=== PATIENT | female | born 1960 | race Caucasian/White ===

== ENCOUNTER 2017-10-21 22:11 | Inpatient (IN) | payer BC, SELFPAY | END 2017-10-25 18:33 | disposition home or self-care (01) | DRG 194 | PROVIDERS: Admitting Provider Emergency Medicine; Emergency Provider Emergency Medicine; Family Provider Emergency Medicine; Visit Provider Emergency Medicine | DX: J18.9 Pneumonia, unspecified organism (principal); C79.51 Secondary malignant neoplasm of bone; C79.89 Secondary malignant neoplasm of other specified sites; C50.919 Malignant neoplasm of unspecified site of unspecified female breast | CPT/HCPCS: 36415; 36569; 71010; 71020; 78306; 80048; 80053; 80202; 81001; 82550; 82553; 82962; 83605; 83880; 84484; 85025; 87040; 87070; 87077; 87186; 87205; 87275; 87276; 87430; 87486; 87581; 87633; 87798; 94640; 94760; 96365; 96374; 99284; A9502; C1751; J0456; J3370 ==

== ENCOUNTER 2017-10-26 11:23 | Outpatient (CLI) | payer BC, SELFPAY | END 2017-10-26 11:50 | disposition home or self-care (01) | PROVIDERS: Visit Provider Emergency Medicine | DX: J18.1 Lobar pneumonia, unspecified organism (principal) | CPT/HCPCS: 96365 ==

== ENCOUNTER → 2017-10-26 | Outpatient (CLI) | payer BC, SELFPAY | PROVIDERS: Visit Provider Emergency Medicine | DX: A40.9 Streptococcal sepsis, unspecified (principal); Z45.2 Encounter for adjustment and management of vascular access device; Z48.00 Encounter for change or removal of nonsurgical wound dressing ==

== ENCOUNTER 2017-10-27 10:54 | Outpatient (CLI) | payer BC, SELFPAY | END 2017-10-27 12:03 | disposition home or self-care (01) | PROVIDERS: Visit Provider Emergency Medicine | DX: J18.1 Lobar pneumonia, unspecified organism (principal) | CPT/HCPCS: 96365 ==

== ENCOUNTER → 2017-10-28 | Outpatient (CLI) | payer BC, SELFPAY | PROVIDERS: Visit Provider Emergency Medicine | DX: J18.1 Lobar pneumonia, unspecified organism (principal) | CPT/HCPCS: 96365 ==

== ENCOUNTER 2017-10-29 10:45 | Outpatient (CLI) | payer BC, SELFPAY | END 2017-10-29 12:24 | disposition home or self-care (01) | PROVIDERS: Visit Provider Emergency Medicine | DX: A40.9 Streptococcal sepsis, unspecified (principal); Z45.2 Encounter for adjustment and management of vascular access device; Z48.00 Encounter for change or removal of nonsurgical wound dressing | CPT/HCPCS: 80053; 85025; 96365 ==

== ENCOUNTER 2017-10-30 10:40 | Outpatient (CLI) | payer BC, SELFPAY | END 2017-10-30 11:50 | disposition home or self-care (01) | PROVIDERS: Visit Provider Emergency Medicine | DX: J18.1 Lobar pneumonia, unspecified organism (principal) | CPT/HCPCS: 96365 ==

== ENCOUNTER 2017-10-31 11:04 | Outpatient (CLI) | payer BC, SELFPAY | END 2017-10-31 12:10 | disposition home or self-care (01) | PROVIDERS: Visit Provider Emergency Medicine | DX: A40.9 Streptococcal sepsis, unspecified (principal) | CPT/HCPCS: 96365 ==

== ENCOUNTER 2017-11-01 11:00 | Outpatient (CLI) | payer BC, SELFPAY | END 2017-11-01 12:10 | disposition home or self-care (01) | PROVIDERS: Visit Provider Emergency Medicine | DX: A40.9 Streptococcal sepsis, unspecified (principal) | CPT/HCPCS: 96365 ==

== ENCOUNTER 2017-11-05 09:52 | Outpatient (CLI) | payer BC, SELFPAY ==
--- NOTE | 2017-11-05 10:01 | XR_ITS ---
XR chest 2V CLINICAL INDICATION: ITS.REASON: PNEUMONIA OF BOTH LUNGS ORDERING PHYSICIAN: ELVIA Her PATIENT AGE: 56 years COMPARISON: 10/24/2017 FINDINGS: Unremarkable cardiovascular structures. Bilateral lower lobe consolidation/pneumonia with bilateral effusions once again noted not significant changed. Right upper extremity PICC line remains in good position. In the left upper lobe overlying the second rib anteriorly there is a lucency of the age aspect of the second rib measuring 4 mm. Previous bone scan suggested metastatic disease. This lucency may be related to developing lytic lesion. There remains scattered blastic appearance of the spine suggesting metastatic disease. IMPRESSION: Overall no change bilateral lower lobe pneumonia with effusions and skeletal metastasis
== END 2017-11-05 15:15 | disposition home or self-care (01) ==
PROVIDERS: PCP Emergency Medicine; Visit Provider Physician Assistant
DX: J18.9 Pneumonia, unspecified organism (principal)
CPT/HCPCS: 71046; G0463

== ENCOUNTER 2017-11-07 08:01 | Outpatient (RCR) | payer BC, SELFPAY ==
--- NOTE | 2017-11-07 09:24 | HMH.PTOPEV ---
Outpatient Rehab Evaluation Rehab OP Evaluation Start: 11/07/17 08:25 Freq: Status: Active Protocol: Document 11/07/17 08:25 AUBRIE (Rec: 11/07/17 08:49 AUBRIE [id number]) Electronically Signed By Sathya Reza, PT 11/07/17 08:25 Outpatient Therapy Subjective History Subjective History PT PRESENTS WITH INSIDIOUS ONSET L HIP PAIN BEGINNING ~2- 3 MONTHS AGO. PT REPORTS L HIP PAIN RADIATES FROM FROM L GLUT. MM AREA INTO L ANTERIOR THIGH AREA. PT REPORTS EXACERBATION OF S/S W/ WORK RELATED PROLONGED STANDING ( [facility]). PMH:DM, BREAST CX Chief Complaint Pain Symptom Type Ache Throb Sharp Dull Symptoms Relieved By Rest/Positioning Symptoms Aggravated By Standing Walking Prior Functional Limitations Lifting Standing Walking Current Functional Limitations Lifting Standing Walking Symptom Description Intermittent Activity Dependent Level of pain today (0-10) 3 Pain scale - at its best (0-10) 0 Pain scale - at its worst (0-10) 8 Lumbopelvic Eval Posture Lumbar Spine Posture Standing Position Decreased Lordosis Assistive device Assistive Devices None / NA Palapation tenderness bilateral thoracic spinal tenderness No lumbar spinal tenderness Yes: 2/4 paraspinal tenderness Yes: 2/4 buttock tenderness Yes: 2/4 ON R Range of Motion Lumbar Spine Active Flexion Range of 75 Motion (degrees) Lumbar Spine Active Extension Range of 35 Motion (degrees) Lumbar Spine Lateral Flexion Active 30 Range of Motion (degrees) Lumbar Spine ROM Limitations Pain Manual Muscle Test Knee Extension Strength Grade 4 Good Knee Flexion Strength Grade 4 Good Hip Flexion Strength Grade 4- Good- Ankle Dorsiflexion Strength Grade 4 Good Gastronemius/Soleus Strength Grade 4- Good- DTR Rt Patellar 1+ Lt Patellar 1+ Rt Gastroc/Soleus 0 Lt Gastroc/Soleus 0 Special Tests Hip Piriformis Test Negative Left Positive Right Sciatic Nerve Tension Test Negative Left
== END 2017-11-07 08:02 ==
LOC: PT 08:01
PROVIDERS: Family Provider Emergency Medicine; PCP Emergency Medicine; Visit Provider Emergency Medicine
DX: M25.552 Pain in left hip (principal)
CPT/HCPCS: 97110; 97161

== ENCOUNTER → 2017-11-29 10:20 | Outpatient (CLI) | payer BC, SELFPAY ==
[2017-11-29 12:06] LABS: Alanine Aminotransferase 24 U/L (12-78); Albumin Level 3.3 gm/dL (3.4-5.0); Albumin/Globulin Ratio 0.8 (1.1-1.8); Alkaline Phosphatase 97 U/L (46-116); Aspartate Amino Transferase 27 U/L (15-37); Bilirubin,Total 0.3 mg/dL (0.2-1.0); Blood Urea Nitrogen 9 mg/dL (7-18); Calcium 8.7 mg/dL (8.5-10.1); Carbon Dioxide 25 mmol/L (21.0-32.0); Chloride 104 mmol/L (98-107); Creatinine,Serum 0.77 mg/dL (0.55-1.02); Estimated Glomerular Filt Rate 77 ml/min (>60); GFR (African American) 93 ML/MIN (>60); Globulin 4.4 gm/dl (1.3-3.2); Glucose 183 mg/dL (74-106); Sodium 141 mmol/L (136-145); Total Protein,Serum 7.7 gm/dL (6.4-8.2)
[2017-11-29 12:10] LABS: Basophils # 0.1 K/mm3 (0-0.2); Basophils % 1.5 % (0.1-2.0); Eosinophils # 0.1 K/mm3 (0.0-0.4); Eosinophils % 3.2 % (0.1-12.0); Hematocrit 30.2 % (37.0-47.0); Hemoglobin 9.6 g/dL (12.2-16.2); Lymphocytes # 1.7 K/mm3 (0.7-4.5); Lymphocytes % 47.5 K/mm3 (10-50); Mean Corpuscular HGB Conc 31.7 g/dL (31.8-35.4); Mean Corpuscular Hemoglobin 29.5 pg (27.0-31.2); Mean Corpuscular Volume 93.2 fl (81-99); Mean Platelet Volume 7.4 fl (7.4-10.4); Monocytes # 0.3 K/mm3 (0.1-1.0); Monocytes % 9.5 % (1.7-9.3); Neutrophils # 1.4 K/mm3 (1.8-7.8); Neutrophils % 38.3 % (37.0-80.0); Platelet Count 260 K/mm3 (142-424); Red Blood Count 3.25 M/mm3 (4.20-5.40); Red Cell Distribution Width 16.3 % (11.5-17.5); White Blood Count 3.6 K/mm3 (4.8-10.8)
== END ==
PROVIDERS: PCP Emergency Medicine; Visit Provider Nurse Practitioner
DX: C50.412 Malignant neoplasm of upper-outer quadrant of left female breast (principal)
CPT/HCPCS: 36415; 80053; 85025

== ENCOUNTER → 2017-12-18 14:31 | Outpatient (CLI) | payer BC, SELFPAY ==
[2017-12-18 14:52] LABS: Basophils # 0.1 K/mm3 (0-0.2); Basophils % 1.5 % (0.1-2.0); Eosinophils # 0.2 K/mm3 (0.0-0.4); Eosinophils % 5.3 % (0.1-12.0); Hematocrit 28.1 % (37.0-47.0); Hemoglobin 9.3 g/dL (12.2-16.2); Lymphocytes # 1.5 K/mm3 (0.7-4.5); Lymphocytes % 50.3 K/mm3 (10-50); Mean Corpuscular Volume 90.8 fl (81-99); Mean Platelet Volume 7.6 fl (7.4-10.4); Monocytes # 0.2 K/mm3 (0.1-1.0); Monocytes % 5.4 % (1.7-9.3); Neutrophils # 1.1 K/mm3 (1.8-7.8); Neutrophils % 37.5 % (37.0-80.0); Platelet Count 212 K/mm3 (142-424); Red Cell Distribution Width 17.7 % (11.5-17.5)
[2017-12-18 15:02] LABS: Hemoglobin A1C 7.7 % (0.0-7.0)
[2017-12-18 15:11] LABS: MANUAL DIFFERENTIAL MANUAL DIFFERENTIAL (MANUAL DIFF)
[2017-12-18 17:03] LABS: Eosinophils % 2 % (0-3); Lymphocytes % 63 % (10-50); Monocytes % 3 % (2-9); Neutrophils % 31 % (42-76); Platelet Estimate Normal; RBC Morphology Normal; Total Cells Counted 100
[2017-12-18 19:06] LABS: Alanine Aminotransferase 27 U/L (12-78); Albumin Level 3.5 gm/dL (3.4-5.0); Albumin/Globulin Ratio 0.8 (1.1-1.8); Alkaline Phosphatase 81 U/L (46-116); Anion Gap 11.8 mEq/L (5-15); Aspartate Amino Transferase 26 U/L (15-37); Bilirubin,Total 0.4 mg/dL (0.2-1.0); Blood Urea Nitrogen 17 mg/dL (7-18); Calcium 9.4 mg/dL (8.5-10.1); Carbon Dioxide 28 mmol/L (21.0-32.0); Chloride 104 mmol/L (98-107); Chol/HDL Ratio 3.1 (1-3.5); Cholesterol 110 mg/dL (140-200); Creatinine,Serum 1.05 mg/dL (0.55-1.02); Estimated Glomerular Filt Rate 54 ml/min (>60); GFR (African American) 65 ML/MIN (>60); Globulin 4.2 gm/dl (1.3-3.2); Glucose 141 mg/dL (74-106); HDL Cholesterol 35 mg/dL (29-89); LDL Cholesterol 51 mg/dL (0-130); Potassium 3.8 mmoL/L (3.5-5.1); Sodium 140 mmol/L (136-145); Total Protein,Serum 7.7 gm/dL (6.4-8.2); Triglycerides 120 mg/dL (30-200); VLDL Cholesterol 24 mg/dL (0-40)
== END ==
PROVIDERS: PCP Emergency Medicine; Visit Provider Emergency Medicine
DX: E11.9 Type 2 diabetes mellitus without complications (principal); C50.412 Malignant neoplasm of upper-outer quadrant of left female breast
CPT/HCPCS: 36415; 80053; 80061; 83036; 85007; 85025

== ENCOUNTER → 2018-01-24 10:37 | Outpatient (CLI) | payer BC, SELFPAY ==
[2018-01-24 10:56] LABS: Basophils % 1.4 % (0.1-2.0); Eosinophils # 0.1 K/mm3 (0.0-0.4); Eosinophils % 3.7 % (0.1-12.0); Hematocrit 32.5 % (37.0-47.0); Hemoglobin 10.3 g/dL (12.2-16.2); Lymphocytes # 1.6 K/mm3 (0.7-4.5); Lymphocytes % 54.4 K/mm3 (10-50); Mean Corpuscular HGB Conc 31.6 g/dL (31.8-35.4); Mean Platelet Volume 7.7 fl (7.4-10.4); Monocytes # 0.3 K/mm3 (0.1-1.0); Monocytes % 9.8 % (1.7-9.3); Neutrophils # 0.9 K/mm3 (1.8-7.8); Neutrophils % 30.8 % (37.0-80.0); Platelet Count 218 K/mm3 (142-424); Red Blood Count 3.42 M/mm3 (4.20-5.40); Red Cell Distribution Width 17.8 % (11.5-17.5); White Blood Count 2.9 K/mm3 (4.8-10.8)
[2018-01-24 10:57] LABS: MANUAL DIFFERENTIAL MANUAL DIFFERENTIAL (MANUAL DIFF)
[2018-01-24 11:05] LABS: Alanine Aminotransferase 22 U/L (12-78); Albumin Level 3.4 gm/dL (3.4-5.0); Albumin/Globulin Ratio 0.7 (1.1-1.8); Alkaline Phosphatase 101 U/L (46-116); Anion Gap 12.8 mEq/L (5-15); Aspartate Amino Transferase 27 U/L (15-37); Bilirubin,Total 0.4 mg/dL (0.2-1.0); Blood Urea Nitrogen 11 mg/dL (7-18); Calcium 9.1 mg/dL (8.5-10.1); Carbon Dioxide 27 mmol/L (21.0-32.0); Chloride 102 mmol/L (98-107); Creatinine,Serum 0.84 mg/dL (0.55-1.02); Estimated Glomerular Filt Rate 70 ml/min (>60); GFR (African American) 84 ML/MIN (>60); Globulin 4.7 gm/dl (1.3-3.2); Glucose 232 mg/dL (74-106); Potassium 3.8 mmoL/L (3.5-5.1); Sodium 138 mmol/L (136-145); Total Protein,Serum 8.1 gm/dL (6.4-8.2)
[2018-01-24 11:45] LABS: Eosinophils % 4 % (0-3); Lymphocytes % 57 % (10-50); Monocytes % 7 % (2-9); Neutrophils % 32 % (42-76); Platelet Estimate Normal; Total Cells Counted 100
[2018-01-24 11:46] LABS: Hypochromasia 1+
== END ==
PROVIDERS: Visit Provider Internal Medicine Hematology & Oncology
DX: C50.412 Malignant neoplasm of upper-outer quadrant of left female breast (principal)
CPT/HCPCS: 36415; 80053; 85007; 85025

== ENCOUNTER → 2018-03-03 11:45 | Outpatient (CLI) | payer BC, SELFPAY ==
--- NOTE | 2018-03-03 11:46 | XR_ITS ---
XR chest 2V COMPARISON: PA and lateral chest 11/05/2017 HISTORY: Generalized malaise, history of recent pneumonia TECHNIQUE: PA and lateral chest FINDINGS: The lung perdomo are well expanded. There is persistent ill-defined opacity in right infrahilar region and right lower lobe most likely representing post inflammatory scarring but some degree of pneumonic infiltrate cannot be excluded. The partially loculated right pleural effusion seen on the previous chest film has almost completely resolved. There is blunting of left costo phrenic angle. The upper lung perdomo are clear. Cardiac size is normal and the vascularity is normal. There are subtle radiolucencies and multiple ribs bilaterally consistent with metastatic disease. IMPRESSION: Chronic basilar changes as noted similar to the previous chest with interval almost complete resolution of the loculated pleural effusion right base
[2018-03-03 12:21] LABS: Basophils % 1.6 % (0.1-2.0); Eosinophils # 0.1 K/mm3 (0.0-0.4); Eosinophils % 2.7 % (0.1-12.0); Hematocrit 31.5 % (37.0-47.0); Hemoglobin 10.1 g/dL (12.2-16.2); Lymphocytes # 0.9 K/mm3 (0.7-4.5); Lymphocytes % 34.4 K/mm3 (10-50); Mean Corpuscular Volume 93.7 fl (81-99); Mean Platelet Volume 7.4 fl (7.4-10.4); Monocytes # 0.3 K/mm3 (0.1-1.0); Monocytes % 11.5 % (1.7-9.3); Neutrophils # 1.2 K/mm3 (1.8-7.8); Neutrophils % 49.8 % (37.0-80.0); Platelet Count 302 K/mm3 (142-424); Red Blood Count 3.36 M/mm3 (4.20-5.40); Red Cell Distribution Width 16.4 % (11.5-17.5); White Blood Count 2.5 K/mm3 (4.8-10.8)
[2018-03-04 14:22] LABS: Alanine Aminotransferase 60 U/L (12-78); Albumin Level 3.6 gm/dL (3.4-5.0); Albumin/Globulin Ratio 0.8 (1.1-1.8); Alkaline Phosphatase 216 U/L (46-116); Aspartate Amino Transferase 139 U/L (15-37); Bilirubin,Total 0.6 mg/dL (0.2-1.0); Blood Urea Nitrogen 16 mg/dL (7-18); Calcium 9.5 mg/dL (8.5-10.1); Carbon Dioxide 27 mmol/L (21.0-32.0); Chloride 99 mmol/L (98-107); Creatinine,Serum 0.89 mg/dL (0.55-1.02); Estimated Glomerular Filt Rate 65 ml/min (>60); GFR (African American) 79 ML/MIN (>60); Globulin 4.4 gm/dl (1.3-3.2); Glucose 371 mg/dL (74-106); Sodium 133 mmol/L (136-145)
== END ==
PROVIDERS: Internal Medicine Hematology & Oncology; PCP Emergency Medicine; Visit Provider Physician Assistant
DX: C50.412 Malignant neoplasm of upper-outer quadrant of left female breast (principal); R10.9 Unspecified abdominal pain; R05 Cough
CPT/HCPCS: 36415; 71046; 80053; 85025; 87070; 87205

== ENCOUNTER → 2018-03-13 10:51 | Outpatient (CLI) | payer BC, SELFPAY | PROVIDERS: Visit Provider Emergency Medicine | DX: C50.412 Malignant neoplasm of upper-outer quadrant of left female breast (principal) | CPT/HCPCS: 87070; 87077; 87186; 87205 ==

== ENCOUNTER 2018-03-18 09:55 | Outpatient (CLI) | payer BC, SELFPAY ==
[2018-03-18 12:15] VITALS: BP 138/71; PULSE 68; RESP 20; TEMP 37.1; O2SAT 96
[2018-03-18 12:55] VITALS: BP 138/70; PULSE 68; RESP 20; TEMP 36.7; O2SAT 96
[2018-03-18 13:25] VITALS: BP 144/77; PULSE 88; RESP 20; TEMP 36.7; O2SAT 96; BMI 36.4
[2018-03-18 14:25] VITALS: BP 122/70; PULSE 68; RESP 20; TEMP 36.9; O2SAT 96
[2018-03-18 14:54] LABS: Gentamicin,Peak 16.3 ug/mL (4.0-8.0)
--- NOTE | 2018-03-18 17:43 | PC.NURSE ---
PT ARRIVED FOR PICC PLACEMENT; ATTEMPTED X3 WITH PUTTING PICC IN; Yuko MA WAS ALSO IN THE ROOM. NOT ABLE TO GET THE VEIN WITH ANY ATTEMPT; DUE TO PATIENT HAVING LYMPHEDEMA IN THE LEFT ARM WE WERE NOT ABLE TO USE THAT ARM; PATIENT WAS THEN STUCK X3 ATTEMPTS IN RIGHT ARM FOR SALINE LOCK; MD OFFICE WAS CALLED AND PATIENT IS SCHEDULED TO SPEAK WITH DR CALVERT TOMORROW FOR VENOUS ACCESS
== END 2018-03-18 14:35 | disposition home or self-care (01) ==
LOC: INF 12:10
PROVIDERS: Family Provider Emergency Medicine; PCP Emergency Medicine; Visit Provider Emergency Medicine
DX: C50.412 Malignant neoplasm of upper-outer quadrant of left female breast (principal)
CPT/HCPCS: 36415; 80170; 96365; 96366; 96367; C1751; J1956

== ENCOUNTER 2018-03-19 09:10 | Outpatient (CLI) | payer BC, SELFPAY ==
[2018-03-19] VITALS (7 sets, daily range): BP systolic 129–134; BP diastolic 80–88; PULSE 89–96; RESP 20; TEMP 36.5; O2SAT 97–98; BMI 36.4
[2018-03-19 10:10] LABS: Gentamicin,Trough 0.1 ug/mL (0.0-2.0)
--- NOTE | 2018-03-19 10:29 | PC.NURSE ---
pt awaiting lab results to start iv infusion. pt has appt with md today to discuss alternate options for venous access. ambulated with pt to office for appt at this time. pt to return for antibiotic infusion.
--- NOTE | 2018-03-19 11:02 | PC.NURSE ---
pt returned from md appt, medication started
== END 2018-03-19 13:40 | disposition home or self-care (01) ==
LOC: INF 09:20
PROVIDERS: Family Provider Emergency Medicine; PCP Emergency Medicine; Visit Provider Emergency Medicine
DX: C50.412 Malignant neoplasm of upper-outer quadrant of left female breast (principal); J18.1 Lobar pneumonia, unspecified organism
CPT/HCPCS: 80170; 93005; 96365; 96366; 96367; J1956

== ENCOUNTER 2018-03-20 08:45 | Outpatient (CLI) | payer BC, SELFPAY ==
[2018-03-20 09:35] VITALS: BP 148/79; PULSE 84; RESP 16; TEMP 36.6
[2018-03-20 10:05] VITALS: BP 144/86; PULSE 86; RESP 16
[2018-03-20 10:35] VITALS: BP 156/96; PULSE 87; RESP 16
[2018-03-20 11:05] VITALS: BP 149/83; PULSE 86; RESP 18
[2018-03-20 11:35] VITALS: BP 127/73; PULSE 86; RESP 18
[2018-03-20 11:50] VITALS: BP 154/83; PULSE 90; RESP 18; O2SAT 93
== END 2018-03-20 12:00 | disposition home or self-care (01) ==
LOC: INF 08:54
PROVIDERS: Family Provider Emergency Medicine; PCP Emergency Medicine; Visit Provider Emergency Medicine
DX: C50.412 Malignant neoplasm of upper-outer quadrant of left female breast (principal)
CPT/HCPCS: 96365; 96367; J1956

== ENCOUNTER 2018-03-21 08:08 | Outpatient (CLI) | payer BC, SELFPAY ==
[2018-03-21] VITALS (8 sets, daily range): BP systolic 117–133; BP diastolic 67–80; PULSE 88–96; RESP 18; TEMP 36.7; O2SAT 93–95
== END 2018-03-21 11:55 | disposition home or self-care (01) ==
LOC: INF 08:36
PROVIDERS: Family Provider Emergency Medicine; PCP Emergency Medicine; Visit Provider Emergency Medicine
DX: C50.412 Malignant neoplasm of upper-outer quadrant of left female breast (principal)
CPT/HCPCS: 96365; 96366; 96367; J1642; J1956

== ENCOUNTER → 2018-03-22 10:22 | Outpatient (CLI) | payer BC, SELFPAY ==
[2018-03-22 10:45] VITALS: BP 147/86; PULSE 118; RESP 18; TEMP 36.7; O2SAT 96
[2018-03-22 12:30] VITALS: BP 147/86; PULSE 104; RESP 18; TEMP 36.8; O2SAT 94
== END ==
PROVIDERS: Family Provider Emergency Medicine; PCP Emergency Medicine; Visit Provider Emergency Medicine
DX: C50.412 Malignant neoplasm of upper-outer quadrant of left female breast (principal)
CPT/HCPCS: 96365; 96367; G0463; J1956

== ENCOUNTER → 2018-03-23 10:17 | Outpatient (CLI) | payer BC, SELFPAY ==
[2018-03-23 10:48] VITALS: BP 132/76; PULSE 107; RESP 18; TEMP 36.8; O2SAT 94
[2018-03-23 11:06] LABS: Gentamicin,Trough 0.2 ug/mL (0.0-2.0)
--- NOTE | 2018-03-23 11:31 | P.CONPHA_ITS ---
- Pharmacy Consult Date: 03/23/18 Time: 11:30 Referring provider: DR. MARIE Reason for Consult:: GENTAMICIN TROUGH LEVEL Allergies and ADEs:: Allergies Allergy/AdvReac Type Severity Reaction Status Date / Time lisinopril [LISINOPRIL] Allergy Severe Anaphylaxis Verified 03/19/18 10:30 naproxen [From ALEVE] Allergy Mild Rash Verified 03/19/18 10:30 Home Medications:: Home Medications Medication Instructions Recorded Confirmed Type Aspirin [Low Dose Aspirin EC] 81 mg PO DAILY 03/16/18 03/21/18 History Letrozole 2.5 mg PO QDAY 03/16/18 03/21/18 History Meloxicam 15 mg PO DAILY 03/16/18 03/21/18 History Palbociclib [Ibrance] 100 mg PO DAILY 03/16/18 03/21/18 History Letrozole 2.5 mg PO DAILY 03/21/18 03/21/18 History Height: 0 cm Weight: 0 g Laboratory Results:: Laboratory Results - last 24 hr 03/23/18 10:30: Gentamicin Trough 0.2 Medical History: Reports:: Cancer (left breast cancer), Diabetes Mellitus Type 2 , Gastroesophageal Reflux Disease(GERD), Hyperlipidemia, Hypertension Denies:: Diabetes Mellitus Type 1, Internal Pacemaker, MRSA Assessment and Plan - Assessment and plan all Dx Assessment and Plan for all problems:: BASED ON GENTAMICIN TROUGH LEVEL OF 0.2, RECOMMEND CONTINUING GENTAMICIN 460 MG IV Q24H.
--- NOTE | 2018-03-23 12:27 | PC.NURSE ---
PATIENT STATES SHE IS HAVING TROUBLE SLEEPING AND WOULD LIKE TO REQUEST SOMETHING FROM DR MARIE FOR THIS. I EXPLAINED TO PATIENT DR MARIE IS NOT UPPER EXTREMITY SURGEON AND IT WOULD BE BEST FOR HER TO CONTACT HIS OFFICE [place] BECAUSE SHE WOULD LIKELY NEED TO SUPERINTENDENT OF GENERATION THE SCRIPT.
[2018-03-23 12:45] VITALS: BP 112/64; PULSE 88; RESP 18; TEMP 36.7; O2SAT 94
== END ==
PROVIDERS: Family Provider Emergency Medicine; PCP Emergency Medicine; Visit Provider Emergency Medicine
DX: J18.9 Pneumonia, unspecified organism (principal); C50.412 Malignant neoplasm of upper-outer quadrant of left female breast
CPT/HCPCS: 80170; 96365; 96366; 96367; G0463; J1956

== ENCOUNTER 2018-03-24 08:27 | Outpatient (CLI) | payer BC, SELFPAY ==
[2018-03-24] VITALS (7 sets, daily range): BP systolic 109–115; BP diastolic 71–77; PULSE 96–106; RESP 18; TEMP 36.4; O2SAT 96–98; BMI 36.4
[2018-03-24 11:45] LABS: Basophils % 0.6 % (0.1-2.0); Eosinophils % 1.3 % (0.1-12.0); Hematocrit 28.4 % (37.0-47.0); Hemoglobin 8.9 g/dL (12.2-16.2); Lymphocytes % 31.6 K/mm3 (10-50); Mean Corpuscular HGB Conc 31.2 g/dL (31.8-35.4); Mean Corpuscular Hemoglobin 28.3 pg (27.0-31.2); Mean Corpuscular Volume 90.7 fl (81-99); Mean Platelet Volume 7.4 fl (7.4-10.4); Monocytes # 0.1 K/mm3 (0.1-1.0); Monocytes % 2.2 % (1.7-9.3); Neutrophils % 64.3 % (37.0-80.0); Platelet Count 278 K/mm3 (142-424); Red Blood Count 3.14 M/mm3 (4.20-5.40); Red Cell Distribution Width 16.8 % (11.5-17.5); White Blood Count 3.1 K/mm3 (4.8-10.8)
[2018-03-24 11:57] LABS: Alanine Aminotransferase 39 U/L (12-78); Albumin Level 2.6 gm/dL (3.4-5.0); Albumin/Globulin Ratio 0.5 (1.1-1.8); Alkaline Phosphatase 299 U/L (46-116); Aspartate Amino Transferase 90 U/L (15-37); Bilirubin,Total 0.5 mg/dL (0.2-1.0); Blood Urea Nitrogen 18 mg/dL (7-18); Carbon Dioxide 27 mmol/L (21.0-32.0); Chloride 93 mmol/L (98-107); Creatinine Clearance Estimated 76 mL/min (0-300); Estimated Glomerular Filt Rate 42 ml/min (>60); GFR (African American) 51 ML/MIN (>60); Globulin 5.5 gm/dl (1.3-3.2); Sodium 129 mmol/L (136-145); Total Protein,Serum 8.1 gm/dL (6.4-8.2)
[2018-03-24 12:00] LABS: Glucose 547 mg/dL (74-106); Magnesium 1.2 mg/dL (1.4-2.2); Phosphorous 4.4 mg/dL (2.4-4.9)
== END 2018-03-24 11:40 | disposition home or self-care (01) ==
LOC: INF 08:27
PROVIDERS: Nurse Practitioner; Family Provider Emergency Medicine; PCP Emergency Medicine; Visit Provider Emergency Medicine
DX: J18.9 Pneumonia, unspecified organism (principal); C50.412 Malignant neoplasm of upper-outer quadrant of left female breast
CPT/HCPCS: 80053; 83735; 84100; 85025; 96365; 96366; 96367; J1642; J1956

== ENCOUNTER 2018-03-25 10:20 | Outpatient (CLI) | payer BC, SELFPAY ==
[2018-03-25] VITALS (7 sets, daily range): BP systolic 122–158; BP diastolic 68–84; PULSE 68–91; RESP 18–20; TEMP 36.9–37.1; O2SAT 96–98
== END 2018-03-25 13:35 | disposition home or self-care (01) ==
LOC: INF 10:32
PROVIDERS: Family Provider Emergency Medicine; PCP Emergency Medicine; Visit Provider Emergency Medicine
DX: J18.1 Lobar pneumonia, unspecified organism (principal); C50.412 Malignant neoplasm of upper-outer quadrant of left female breast
CPT/HCPCS: 96365; 96366; 96367; J1956

== ENCOUNTER 2018-03-26 10:32 | Outpatient (CLI) | payer BC, SELFPAY ==
[2018-03-26] VITALS (7 sets, daily range): BP systolic 128–147; BP diastolic 71–83; PULSE 96–102; RESP 16–18; TEMP 36.4; O2SAT 100
== END 2018-03-26 14:05 | disposition home or self-care (01) ==
LOC: INF 10:32
PROVIDERS: Family Provider Emergency Medicine; PCP Emergency Medicine; Visit Provider Emergency Medicine
DX: J18.1 Lobar pneumonia, unspecified organism (principal); C50.412 Malignant neoplasm of upper-outer quadrant of left female breast
CPT/HCPCS: 96365; 96366; 96367; J1642; J1956

== ENCOUNTER 2018-03-27 08:30 | Outpatient (CLI) | payer BC, SELFPAY ==
[2018-03-27] VITALS (8 sets, daily range): BP systolic 122–136; BP diastolic 61–76; PULSE 66–71; RESP 18–20; TEMP 36.6; O2SAT 96–97
== END 2018-03-27 12:00 | disposition home or self-care (01) ==
LOC: INF 08:33
PROVIDERS: Family Provider Emergency Medicine; PCP Emergency Medicine; Visit Provider Emergency Medicine
DX: J18.1 Lobar pneumonia, unspecified organism (principal); C50.412 Malignant neoplasm of upper-outer quadrant of left female breast
CPT/HCPCS: 96365; 96366; 96367; J1642; J1956

== ENCOUNTER 2018-03-28 10:00 | Outpatient (CLI) | payer BC, SELFPAY | END 2018-03-28 10:30 | disposition home or self-care (01) | LOC: INF 10:35 | PROVIDERS: Family Provider Emergency Medicine; PCP Emergency Medicine; Visit Provider Emergency Medicine | DX: C50.412 Malignant neoplasm of upper-outer quadrant of left female breast (principal) | CPT/HCPCS: 96523; J1642 ==

== ENCOUNTER 2018-03-31 13:22 | Observation (INO) ==
--- NOTE | 2018-03-31 13:46 | Emergency Department Note ---
ED Disposition Clinical Impression: Altered mental status, unspecified, Hyponatremia, Uncontrolled diabetes mellitus, Metastatic disease Disposition: Still a Patient Condition on Discharge: Fair Instructions: DI for Altered Mental Status Referrals: Juan Marlow MD [Primary Care Provider] - - Critical Care Critical Care Time: No Attestation: On 03/31/18, the high probability of a clinically significant, sudden or life threatening deterioration of the following system(s) required my full and direct attention, intervention and personal management. The time I documented below is in addition to time spent performing reported procedures but includes the following listed in this critical care notation. Medical Decision Making - Cooper Inquiry Pt receiving controlled substance: No Cooper was queried for this patient: No Vital Signs: 03/31/18 13:37 Temperature 97.6 F Temperature Source Oral Pulse Rate [Left Radial] 115 H Respiratory Rate 16 Blood Pressure [Right Arm] 152/96 Blood Pressure Mean [Right Arm] 114 Blood Pressure Source [Right Arm] Automatic Cuff Blood Pressure Position [Right Arm] Sitting 02 Sat by Pulse Oximetry 98 Oxygen Delivery Method Room Air - Lab Data Lab Results 03/31/18 13:32: POC Glucose 483 H* 03/31/18 13:47: Specimen Source Right brachial, O2 % Ra, ABG pH 7.41, ABG pCO2 24.7 L, ABG pO2 89.0, ABG HCO3 15.2 L, ABG Total CO2 16.0 L, ABG O2 Saturation 96, ABG Base Excess -9.5 L, Stewart Test Acceptable 03/31/18 14:20: WBC 4.0 L, RBC 3.10 L, Hgb 9.6 L, Hct 27.7 L, MCV 89.5, MCH 31.0 , MCHC 34.6, RDW 17.6 H, Plt Count 231, MPV 7.2 L, Neut % (Auto) 46.6, Lymph % ( Auto) 38.7, [place] % (Auto) 8.3, Eos % (Auto) 5.6, Baso % (Auto) 0.7, Neut # (Auto ) 1.9, Lymph # (Auto) 1.6, [place] # (Auto) 0.3, Eos # (Auto) 0.2, Baso # (Auto) 0.0 03/31/18 14:20: Sodium 125 L, Potassium 5.1, Chloride 86 L, Carbon Dioxide 19 L , Anion Gap 25.1 H, BUN 37 H, Creatinine 1.48 H, Estimated Creat Clear 65, Estimated GFR 36 L, Est GFR ( Amer) 44 L, Glucose 486 H*, Fasting Glucose 486 H*, Calcium 10.1, Total Bilirubin 1.1 H, AST 88 H D, ALT 45, Alkaline Phosphatase 397 H, Total Protein 9.0 H, Albumin 2.8 L, Globulin 6.2 H, Albumin/Globulin Ratio 0.5 L, Salicylates 2.6 L, Acetaminophen 0 L, Plasma/ Serum Alcohol 0 03/31/18 14:20: Lactic Acid 2.3 H 03/31/18 14:20: Ammonia 24 03/31/18 14:20: Total Creatine Kinase 29, CK-MB (CK-2) < 0.5, CK-MB (CK-2) Rel Index 1.7, Troponin I < 0.02 Result diagrams: 03/31/18 14:20 03/31/18 14:20 Orders (Tests/Meds): ED MEDICATIONS Discontinued Medications Generic Name Dose Route Start Last Admin Trade Name Freq PRN Reason Stop Dose Admin Sodium Chloride 1,000 mls @ 999 mls/hr 03/31/18 14:00 03/31/18 14:24 Sod Chlor 0.9% 1000ml Bag IV 03/31/18 15:00 999 mls/hr .Q1H1M [place] Administration ORDERS Category Date Time Status Drug Screen,Urine Stat Lab 03/31/18 13:40 Ordered Lactic Acid Follow Up (4 hr) Stat Lab 03/31/18 14:50 Ordered Urinalysis and Microscopic Stat Lab 03/31/18 13:32 Ordered Blood Culture Stat Micro 03/31/18 14:20 Received ECG Request by /Bonnie Stat Y 03/31/18 13:42 Ordered - Radiology Data #1 Image(s): Chest Image Reviewed: Yes I reviewed the patient's radiology image Preliminary Findings: Abnormal Chronic parenchymal changes cannot exclude acute infiltrates. - CT Data CT Scan: Head Time Received: 15:[address] Reviewed: Yes: I have viewed the radiologist's interpretation Preliminary Findings: Normal/NAD - ECG Data Tracing #1 Sinus rhythm 74/min no acute findings. ECG initial impression date: 03/31/18 ECG initial impression time: 14:20 Medical Decision Narrative: I discussed with both daughters, there is limited for starting the confusion. Obviously has hyponatremia and hyperglycemia that can contribute to this. He has metastatic cancer of unknown primary. Called Dr. Marlow who agreed to admit the patient on hold of her pain medication. Altered Mental Status HPI - General Chief Complaint: Altered Mental Status Stated Complaint: Confused Time Seen by Provider: 03/31/18 13:50 Mode of Arrival: Ambulatory Limitations: Altered Mental Status Description of Symptoms (Recalled from ER Triage Doc. by RN): to ed per pvt car pt brought by daughter due to confusion. daughter states she was talking to her on phone and pt was very confused. pt alert disoriented x 4 difficulty following commands. - History of Present Illness HPI narrative: 57 years old white female cancer survivor with complex past medical history. She was brought by her daughter Chantale reports that she was last seen normal last night. His morning she went out with a friend who became concerned and contacted her daughter"Chantale" who in turn called her and she found her confused over the phone so she brought her to the ED. the patient is alert knows her daughter's name but she is unable to name the president, she knows it is a hospital but she does not know which Hospital, she is disoriented to day and date. MD complaint: altered mental status Onset (ago): unknown Timing confirmed by: family member Severity: moderate Consistency of symptoms: constant Context: other Associated symptoms: denies other symptoms - Related Data Home Medications Medication Instructions Recorded Confirmed Aspirin [Low Dose Aspirin EC] 81 mg PO DAILY 03/16/18 03/31/18 Palbociclib [Ibrance] 100 mg PO DAILY 03/16/18 03/31/18 Letrozole 2.5 mg PO DAILY 03/21/18 03/31/18 glipiZIDE [Glipizide ER] 5 mg PO DAILY 03/31/18 03/31/18 Previous Rx's Medication Instructions Recorded Hydrocodone/Acetaminophen 1 each PO Q4H PRN 3 Days #18 tab 03/16/18 [Hydrocodone-Acetamin 5-325 mg] amlodipine 5 mg tablet 5 mg PO DAILY 90 Days #90 tab 03/17/18 atorvastatin 10 mg tablet 10 mg PO DAILY 90 Days #90 tab 03/17/18 hydralazine 10 mg tablet 10 mg PO TID 90 Days #270 tab 03/17/18 metformin 500 mg tablet 500 mg PO BID 90 Days #180 tab 03/17/18 Oxycodone HCl/Acetaminophen 1 tab PO Q8H PRN #30 tab 03/29/18 [Percocet 7.5/325mg tablet] Oxycodone HCl/Acetaminophen 1 tab PO Q8H PRN #30 tablet 03/29/18 [Percocet 7.5/325mg tablet] Allergies Allergy/AdvReac Type Severity Reaction Status Date / Time lisinopril [LISINOPRIL] Allergy Severe Anaphylaxis Verified 03/19/18 10:30 naproxen [From ALEVE] Allergy Mild Rash Verified 03/19/18 10:30 [facility] History I have reviewed the patient's past medical history: Yes Medical History: Reports:: Cancer (left breast cancer), Diabetes Mellitus Type 2 , Gastroesophageal Reflux Disease(GERD), Hyperlipidemia, Hypertension Denies:: Diabetes Mellitus Type 1, Internal Pacemaker, MRSA Other Medical History: Reports: Other (current pneumonia) Laterality Cases: Left: Lumpectomy, Bilateral: Carpal Tunnel Release Other Surgeries: Yes: Angioplasty, Cancer Surgery. No: Pacemaker Amputation: No Fractures: No - Social History Smoking Status: Former smoker #Yrs smoked (if former smoker): 30 Alcohol Intake: never Alcohol Intake Frequency:: other Substance Use Type: denies use Occupational Status: employed Housing: house Household Members: spouse - Psychiatric History Expresses thoughts of harming self/others: None Suicide Plan Description: No Plan Family Hx:: Cancer ROS Obtained: Yes All systems reviewed & no additional complaints Physical Exam - General General appearance: alert, in no apparent distress - Head Head exam: atraumatic, normocephalic, normal inspection - Eye Eye exam: Present: normal appearance, PERRL, EOMI. Absent: scleral icterus - ENT ENT exam: Present: normal exam, normal oropharynx, mucous membranes moist, TM's normal bilaterally, normal external ear exam - Neck Neck exam: Present: normal inspection, full ROM, trachea midline. Absent: tenderness, meningismus, lymphadenopathy - Chest Chest inspection: Present: normal inspection, symmetric chest wall rise. Absent : tenderness - Respiratory Respiratory exam: Present: normal lung sounds bilaterally. Absent: respiratory distress - Cardiovascular Cardiovascular exam: Present: regular rate, normal rhythm. Absent: JVD - Abdominal Exam Abdominal exam: Present: soft, normal bowel sounds. Absent: distention, tenderness, guarding - Extremities Exam Extremities exam: Present: normal inspection, full ROM, normal capillary refill. Absent: tenderness, calf tenderness - Back Exam Back exam: Present: normal inspection. Absent: tenderness, vertebral tenderness - Neurological Exam Neurological exam: Present: alert, oriented X3, CN II-XII intact, motor sensory deficit, reflexes normal - Psychiatric Psychiatric exam: Present: normal affect, normal mood - Skin Skin exam: Present: warm, dry, intact, normal color - Lymphatic Lymphatic Findings: no adenopathy
[2018-03-31 14:31] LABS: Basophils % 0.7 % (0.1-2.0); Eosinophils # 0.2 K/mm3 (0.0-0.4); Eosinophils % 5.6 % (0.1-12.0); Hematocrit 27.7 % (37.0-47.0); Hemoglobin 9.6 g/dL (12.2-16.2); Lymphocytes # 1.6 K/mm3 (0.7-4.5); Lymphocytes % 38.7 K/mm3 (10-50); Mean Corpuscular HGB Conc 34.6 g/dL (31.8-35.4); Mean Corpuscular Volume 89.5 fl (81-99); Mean Platelet Volume 7.2 fl (7.4-10.4); Monocytes # 0.3 K/mm3 (0.1-1.0); Monocytes % 8.3 % (1.7-9.3); Neutrophils # 1.9 K/mm3 (1.8-7.8); Neutrophils % 46.6 % (37.0-80.0); Platelet Count 231 K/mm3 (142-424); Red Cell Distribution Width 17.6 % (11.5-17.5)
[2018-03-31 14:44] LABS: ABG Base Excess -9.5 mmol/L (-2.4-2.3); ABG HCO3 15.2 mmhg (22.0-26.0); ABG Oxygen Saturation 96 % (90-100); ABG PCO2 24.7 mmhg (35.0-45.0); ABG PH 7.41 mmol/L (7.35-7.45)
[2018-03-31 14:45] LABS: Allen's Test Acceptable; Oxygen RA %
[2018-03-31 14:54] LABS: Creatine Kinase 29 U/L (26-192)
[2018-03-31 14:57] LABS: Albumin Level 2.8 gm/dL (3.4-5.0); Albumin/Globulin Ratio 0.5 (1.1-1.8); Anion Gap 25.1 mEq/L (5-15); Bilirubin,Total 1.1 mg/dL (0.2-1.0); Calcium 10.1 mg/dL (8.5-10.1); Globulin 6.2 gm/dl (1.3-3.2); Potassium 5.1 mmoL/L (3.5-5.1)
[2018-03-31 15:05] LABS: Salicylate 2.6 mg/dL (2.8-20.0)
[2018-04-01 06:43] LABS: Basophils % 0.9 % (0.1-2.0); Eosinophils # 0.1 K/mm3 (0.0-0.4); Eosinophils % 4.5 % (0.1-12.0); Lymphocytes % 39.7 K/mm3 (10-50); Mean Corpuscular HGB Conc 30.2 g/dL (31.8-35.4); Mean Corpuscular Hemoglobin 27.3 pg (27.0-31.2); Mean Corpuscular Volume 90.3 fl (81-99); Mean Platelet Volume 7.2 fl (7.4-10.4); Monocytes # 0.2 K/mm3 (0.1-1.0); Monocytes % 8.3 % (1.7-9.3); Neutrophils # 1.2 K/mm3 (1.8-7.8); Neutrophils % 46.6 % (37.0-80.0); Platelet Count 190 K/mm3 (142-424); Red Blood Count 2.94 M/mm3 (4.20-5.40); Red Cell Distribution Width 17.7 % (11.5-17.5)
[2018-04-01 06:50] LABS: Hematocrit 26.6 % (37.0-47.0)
[2018-04-01 06:51] LABS: White Blood Count 2.6 K/mm3 (4.8-10.8)
[2018-04-01 06:52] LABS: Albumin Level 2.3 gm/dL (3.4-5.0); Albumin/Globulin Ratio 0.5 (1.1-1.8); Anion Gap 17.1 mEq/L (5-15); Bilirubin,Total 0.8 mg/dL (0.2-1.0); Potassium 4.1 mmoL/L (3.5-5.1); Total Protein,Serum 7.3 gm/dL (6.4-8.2)
--- NOTE | 2018-04-01 07:57 | Pharmacy Consult Notes ---
[facility] Pharmacy VTE Monitoring - Patient Demographics Admission date: 04/01/18 Report Date: 04/01/18 Time: 07:56 Allergies/Adverse Reactions: Patient Allergies lisinopril [LISINOPRIL] Allergy (Severe, Verified 03/19/18 10:30) Anaphylaxis naproxen [From ALEVE] Allergy (Mild, Verified 03/19/18 10:30) Rash Height: 1.68 m Weight: 92.351 kg Patient Problems: Current Active Problems Hyponatremia (Acute) Altered mental status, unspecified (Acute) Uncontrolled diabetes mellitus (Acute) Metastatic disease (Acute) - VTE Risk Labs: VTE Related Lab Results Hgb 8.0 g/dL (12.2-16.2) L 04/01/18 05:30 Hct 26.6 % (37.0-47.0) L 04/01/18 05:30 Plt Count 190 K/mm3 (142-424) 04/01/18 05:30 BUN 25 mg/dL (7-18) H D 04/01/18 05:30 Creatinine 0.95 mg/dL (0.55-1.02) D 04/01/18 05:30 Estimated Creat Clear 94 mL/min (0-300) 04/01/18 05:30 VTE Risk Level: Very Low Risk Clinical Trial Participant: No - Prophylaxis VTE Prophylaxis Ordered?: Yes Types of VTE Prophylaxis: TEDS Knee High
--- NOTE | 2018-04-01 08:42 | History & Physical Report ---
*Admission Date: 04/01/18 *Chief complaint: altered mental status *History of present illness: this wf with known metastatic breast cancer who presents with confusion in the ed - 7 years old white female cancer survivor with complex past medical history. She was brought by her daughter Chantale reports that she was last seen normal last night. His morning she went out with a friend who became concerned and contacted her daughter"Chantale" who in turn called her and she found her confused over the phone so she brought her to the ED. the patient is alert knows her daughter's name but she is unable to name the president, she knows it is a hospital but she does not know which Hospital, she is disoriented to day and date. [facility] History I have reviewed the patient's past medical history: Yes Medical History: Reports:: Cancer, Diabetes Mellitus Type 2, Gastroesophageal Reflux Disease(GERD), Hyperlipidemia, Hypertension Denies:: Diabetes Mellitus Type 1, Internal Pacemaker, MRSA Other Medical History: Reports: Other (current pneumonia) Laterality Cases: Left: Lumpectomy, Bilateral: Carpal Tunnel Release Other Surgeries: Yes: Angioplasty, Cancer Surgery. No: Pacemaker Amputation: No Fractures: No - *Social History Educational Level: Attended College Smoking Status: Former smoker Tobacco Type: cigarettes #Yrs smoked (if former smoker): 30 Alcohol Intake: never Alcohol Intake Frequency:: other Substance Use Type: denies use Occupational Status: employed Housing: house Household Members: spouse - Psychiatric History Expresses thoughts of harming self/others: None Suicide Plan Description: No Plan *Family Hx:: Cancer Review of Systems - Review of Systems Review of systems:: pertinent systems reviewed and negative unless documented below - Constitutional Denies fever(s) - Eyes Denies change in vision - ENT Denies sinus pain - *Cardiovascular Denies chest pain at rest - *Respiratory Denies cough - *Gastrointestinal Denies constipation - *Genitourinary Denies blood in urine - *Musculoskeletal Denies joint pain - Integumentary/Breasts Denies rash - *Neurologic Reports other (confusion), Denies headache(s) - Psychiatric Reports confusion Meds Home Medications Medication Instructions Recorded Confirmed Type Aspirin [Low Dose Aspirin EC] 81 mg PO DAILY 03/16/18 03/31/18 History Palbociclib [Ibrance] 100 mg PO DAILY 03/16/18 03/31/18 History Letrozole 2.5 mg PO DAILY 03/21/18 03/31/18 History glipiZIDE [Glipizide ER] 5 mg PO DAILY 03/31/18 03/31/18 History Omeprazole [Omeprazole 20mg 20 mg PO DAILY 04/01/18 04/01/18 History Capsule] Allergies Allergy/AdvReac Type Severity Reaction Status Date / Time lisinopril [LISINOPRIL] Allergy Severe Anaphylaxis Verified 03/19/18 10:30 naproxen [From ALEVE] Allergy Mild Rash Verified 03/19/18 10:30 Exam Vital signs and Labs for Last 24 Hours: Temp Pulse Resp BP Pulse Ox 98.3 F 109 H 20 127/80 96 04/01/18 07:44 04/01/18 07:44 04/01/18 07:44 04/01/18 07:44 04/01/18 07:44 Laboratory Results - last 24 hr 03/31/18 13:32: POC Glucose 483 H* 03/31/18 13:47: Specimen Source Right brachial, O2 % Ra, ABG pH 7.41, ABG pCO2 24.7 L, ABG pO2 89.0, ABG HCO3 15.2 L, ABG Total CO2 16.0 L, ABG O2 Saturation 96, ABG Base Excess -9.5 L, Stewart Test Acceptable 03/31/18 14:20: WBC 4.0 L, RBC 3.10 L, Hgb 9.6 L, Hct 27.7 L, MCV 89.5, MCH 31.0 , MCHC 34.6, RDW 17.6 H, Plt Count 231, MPV 7.2 L, Neut % (Auto) 46.6, Lymph % ( Auto) 38.7, [place] % (Auto) 8.3, Eos % (Auto) 5.6, Baso % (Auto) 0.7, Neut # (Auto ) 1.9, Lymph # (Auto) 1.6, [place] # (Auto) 0.3, Eos # (Auto) 0.2, Baso # (Auto) 0.0 03/31/18 14:20: Sodium 125 L, Potassium 5.1, Chloride 86 L, Carbon Dioxide 19 L , Anion Gap 25.1 H, BUN 37 H, Creatinine 1.48 H, Estimated Creat Clear 65, Estimated GFR 36 L, Est GFR ( Amer) 44 L, Glucose 486 H*, Fasting Glucose 486 H*, Calcium 10.1, Total Bilirubin 1.1 H, AST 88 H D, ALT 45, Alkaline Phosphatase 397 H, Total Protein 9.0 H, Albumin 2.8 L, Globulin 6.2 H, Albumin/Globulin Ratio 0.5 L, Salicylates 2.6 L, Acetaminophen 0 L, Plasma/ Serum Alcohol 0 03/31/18 14:20: Lactic Acid 2.3 H 03/31/18 14:20: Ammonia 24 03/31/18 14:20: Total Creatine Kinase 29, CK-MB (CK-2) < 0.5, CK-MB (CK-2) Rel Index 1.7, Troponin I < 0.02 03/31/18 16:57: POC Glucose 395 H* 03/31/18 18:20: Lactic Acid Fup @ 4Hr 1.4 03/31/18 20:34: POC Glucose 422 H* 04/01/18 05:30: WBC 2.6 L D, RBC 2.94 L, Hgb 8.0 L, Hct 26.6 L, MCV 90.3, MCH 27.3, MCHC 30.2 L, RDW 17.7 H, Plt Count 190, MPV 7.2 L, Neut % (Auto) 46.6, Lymph % (Auto) 39.7, [place] % (Auto) 8.3, Eos % (Auto) 4.5, Baso % (Auto) 0.9, Neut # (Auto) 1.2 L, Lymph # (Auto) 1.0, [place] # (Auto) 0.2, Eos # (Auto) 0.1, Baso # (Auto) 0.0 04/01/18 05:30: Sodium 131 L, Potassium 4.1, Chloride 95 L, Carbon Dioxide 23 D , Anion Gap 17.1 H, BUN 25 H D, Creatinine 0.95 D, Estimated Creat Clear 94, Estimated GFR 60, Est GFR ( Amer) 73 D, Glucose 335 H D, Calcium 9.0 D , Total Bilirubin 0.8, AST 79 H, ALT 40, Alkaline Phosphatase 339 H, Total Protein 7.3, Albumin 2.3 L D, Globulin 5.0 H, Albumin/Globulin Ratio 0.5 L 04/01/18 06:27: POC Glucose 355 H* I & O for Last 24 hours: Intake & Output 03/29/18 03/30/18 03/31/18 04/01/18 11:59 11:59 11:59 11:59 Intake Total 1890 Output Total Balance 1860 Weight 203 lb 9.6 oz - Constitutional no acute distress - *Routine HEENT Exam Head: Present: normocephalic Eye: Present: EOMI, PERRL ENT: Present: mucous membranes dry - *Routine Neck Exam Present: supple - *Routine Respiratory Exam Present: CTA bilaterally - *Routine Cardiovascular Exam Present: RRR, murmur, S4 - *Routine Abdominal Exam Present: soft - *Routine Extremities Exam Present: full ROM - *Routine Skin Exam Present: intact - *Routine Neurological Exam Present: alert, CN II-XII intact, altered mental status - Routine Psychiatric Exam Absent: normal thought process H&P: Result - Labs Labs: Short CBC 03/31/18 04/01/18 Range/Units 14:20 05:30 WBC 4.0 L 2.6 L D (4.8-10.8) K/mm3 Hgb 9.6 L 8.0 L (12.2-16.2) g/dL Hct 27.7 L 26.6 L (37.0-47.0) % Plt Count 231 190 (142-424) K/mm3 [facility] 03/31/18 04/01/18 14:20 05:30 Sodium 125 L 131 L Potassium 5.1 4.1 Chloride 86 L 95 L Carbon Dioxide 19 L 23 D BUN 37 H 25 H D Creatinine 1.48 H 0.95 D Glucose 486 H* 335 H D Calcium 10.1 9.0 D Cardiac Enzymes 03/31/18 Range/Units 14:20 Total Creatine Kinase 29 (26-192) U/L CK-MB (CK-2) < 0.5 (0.0-3.6) ng/ml Troponin I < 0.02 (0.00-0.06) ng/ml Liver Function 03/31/18 04/01/18 Range/Units 14:20 05:30 Total Bilirubin 1.1 H 0.8 (0.2-1.0) mg/dL AST 88 H D 79 H (15-37) U/L ALT 45 40 (12-78) U/L Alkaline Phosphatase 397 H 339 H (46-116) U/L Albumin 2.8 L 2.3 L D (3.4-5.0) gm/dL Assessment and Plan (1) Altered mental status, unspecified Current visit: Yes Status: Acute Category: Medical Code(s): R41.82 - Altered mental status, unspecified (2) Hyponatremia Current visit: Yes Status: Acute Category: Medical Code(s): E87.1 - Hypo- osmolality and hyponatremia (3) Diabetes mellitus Current visit: No Status: Acute Qualifiers: Diabetes mellitus type: type 2 Diabetes mellitus longterm insulin use: with longterm use Diabetes mellitus complication status: with unspecified complications Qualified Code(s): E11.8 - Type 2 diabetes mellitus with unspecified complications; Z79.4 - lobsterman (current) use of insulin Category: Medical Code(s): E11.9 - Type 2 diabetes mellitus without complications (4) Metastatic breast cancer Current visit: No Status: Acute Category: Medical Code(s): C50.919 - Malignant neoplasm of unspecified site of unspecified female breast
[2018-04-01 10:44] LABS: Microscopic, Urine URINE MICROSCOPIC (MICROSCOPIC)
[2018-04-01 10:49] LABS: Appearance,Urine CLEAR (Clear); Blood, Urine Negative (Negative); Color,Urine YELLOW (Yellow); Glucose,Urine (UA) 3+ (Negative); Ketones,Urine 2+ (Negative); Leukocyte Esterase,Urine Negative (Negative); Protein,Urine Negative (Negative); Specific Gravity, Urine >= 1.030 (1.005-1.030); Urobilinogen,Urine 0.2 EU/dl (0.2)
[2018-04-01 11:08] LABS: Bilirubin,Urine Negative (Negative)
[2018-04-01 11:10] LABS: Bacteria,Urine 3+ /lpf; RBC,Urine Occasional #/hpf (0-3)
[2018-04-01 22:36] LABS: Hematocrit 34.7 % (37.0-47.0)
[2018-04-02 06:35] LABS: Basophils % 1.3 % (0.1-2.0); Eosinophils # 0.1 K/mm3 (0.0-0.4); Eosinophils % 4.5 % (0.1-12.0); Hemoglobin 10.1 g/dL (12.2-16.2); Lymphocytes # 1.1 K/mm3 (0.7-4.5); Mean Corpuscular HGB Conc 31.6 g/dL (31.8-35.4); Mean Corpuscular Hemoglobin 27.3 pg (27.0-31.2); Mean Corpuscular Volume 86.4 fl (81-99); Mean Platelet Volume 7.3 fl (7.4-10.4); Monocytes # 0.2 K/mm3 (0.1-1.0); Neutrophils # 1.2 K/mm3 (1.8-7.8); Neutrophils % 46.2 % (37.0-80.0); Platelet Count 171 K/mm3 (142-424); Red Cell Distribution Width 17.1 % (11.5-17.5); White Blood Count 2.7 K/mm3 (4.8-10.8)
[2018-04-02 06:41] LABS: Anion Gap 13.5 mEq/L (5-15); Calcium 8.6 mg/dL (8.5-10.1); Potassium 3.5 mmoL/L (3.5-5.1)
--- NOTE | 2018-04-02 13:27 | Progress Note ---
Internal Medicine - PN: Subj *Date: 04/02/18 *Time: 13:24 Interval history: doing better - more alert - awaiting c/s of urine Exam Vital signs and Labs for Last 24 Hours: Temp Pulse Resp BP Pulse Ox 98.3 F 111 H 18 143/80 96 04/02/18 07:39 04/02/18 07:39 04/02/18 07:39 04/02/18 07:39 04/02/18 09:00 Laboratory Results - last 24 hr 04/01/18 08:52: Urine Color Yellow, Urine Appearance Clear, Urine pH 5.0, Ur Specific [place] >= 1.030, Urine Protein Negative, Urine Glucose (UA) 3+, Urine Ketones 2+, Urine Blood Negative, Urine Nitrate Negative, Urine Bilirubin Negative, Urine Urobilinogen 0.2, Ur Leukocyte Esterase Negative, Urine RBC Occasional, Urine WBC 10-20, Ur Squamous Epith Cells 10-20, Urine Bacteria 3+ 04/01/18 10:45: Blood Type O Positive, Antibody Screen Negative, Crossmatch (AHG ) See Detail 04/01/18 16:34: POC Glucose 430 H* 04/01/18 19:29: POC Glucose 291 H 04/01/18 22:10: Hgb 11.0 L D, Hct 34.7 L 04/02/18 05:54: POC Glucose 268 H 04/02/18 06:25: WBC 2.7 L, RBC 3.70 L D, Hgb 10.1 L, Hct 32.0 L, MCV 86.4, MCH 27.3, MCHC 31.6 L, RDW 17.1, Plt Count 171, MPV 7.3 L, Neut % (Auto) 46.2, Lymph % (Auto) 41.0, [place] % (Auto) 7.0, Eos % (Auto) 4.5, Baso % (Auto) 1.3, Neut # (Auto) 1.2 L, Lymph # (Auto) 1.1, [place] # (Auto) 0.2, Eos # (Auto) 0.1, Baso # (Auto) 0.0 04/02/18 06:25: Sodium 133 L, Potassium 3.5, Chloride 99, Carbon Dioxide 24, Anion Gap 13.5, BUN 14 D, Creatinine 0.84, Estimated Creat Clear 106, Estimated GFR 70, Est GFR ( Amer) 84, Glucose 280 H, Calcium 8.6 04/02/18 11:32: POC Glucose 361 H* I & O for Last 24 hours: Intake & Output 03/31/18 04/01/18 04/02/18 04/03/18 11:59 11:59 11:59 11:59 Intake Total 2251 / 2251 1440 / 1440 Output Total 2200 / 2200 Balance 2221 / 2221 -760 / -760 Weight 203 lb 9.6 oz Microbiology Reports for the Last 24 Hours: Microbiology 04/01/18 08:52 Urine,Clean Catch Urine Culture - Preliminary Gram Positive Cocci - Constitutional no acute distress - *Routine HEENT Exam Head: Present: normocephalic Eye: Present: EOMI, PERRL ENT: Present: mucous membranes dry - *Routine Neck Exam Present: supple - *Routine Respiratory Exam Present: CTA bilaterally. Absent: respiratory distress - *Routine Cardiovascular Exam Present: RRR - *Routine Abdominal Exam Present: soft - *Routine Extremities Exam Absent: calf tenderness - *Routine Skin Exam Present: intact - *Routine Neurological Exam Present: alert, oriented X3, CN II-XII intact - Routine Psychiatric Exam Present: normal affect Assessment and Plan (1) Altered mental status, unspecified Current visit: Yes Status: Acute Category: Medical Code(s): R41.82 - Altered mental status, unspecified (2) Hyponatremia Current visit: Yes Status: Acute Category: Medical Code(s): E87.1 - Hypo- osmolality and hyponatremia (3) Diabetes mellitus Current visit: No Status: Acute Qualifiers: Diabetes mellitus type: type 2 Diabetes mellitus technician terminal and repeater insulin use: with technician terminal and repeater use Diabetes mellitus complication status: with unspecified complications Qualified Code(s): E11.8 - Type 2 diabetes mellitus with unspecified complications; Z79.4 - long term care pharmacist (current) use of insulin Category: Medical Code(s): E11.9 - Type 2 diabetes mellitus without complications (4) Metastatic breast cancer Current visit: No Status: Acute Category: Medical Code(s): C50.919 - Malignant neoplasm of unspecified site of unspecified female breast (5) UTI (urinary tract infection) Current visit: Yes Status: Acute Qualifiers: Urinary tract infection type: site unspecified Hematuria presence: without hematuria Qualified Code(s): N39.0 - Urinary tract infection, site not specified Category: Medical Code(s): N39.0 - Urinary tract infection, site not specified
[2018-04-03 08:52] LABS: Basophils % 1.1 % (0.1-2.0); Eosinophils # 0.1 K/mm3 (0.0-0.4); Eosinophils % 3.6 % (0.1-12.0); Hematocrit 33.9 % (37.0-47.0); Hemoglobin 10.7 g/dL (12.2-16.2); Lymphocytes # 1.1 K/mm3 (0.7-4.5); Lymphocytes % 37.4 K/mm3 (10-50); Mean Corpuscular HGB Conc 31.4 g/dL (31.8-35.4); Mean Corpuscular Hemoglobin 27.2 pg (27.0-31.2); Mean Corpuscular Volume 86.6 fl (81-99); Mean Platelet Volume 7.4 fl (7.4-10.4); Monocytes # 0.2 K/mm3 (0.1-1.0); Monocytes % 6.9 % (1.7-9.3); Neutrophils # 1.5 K/mm3 (1.8-7.8); Neutrophils % 50.9 % (37.0-80.0); Platelet Count 203 K/mm3 (142-424); Red Blood Count 3.91 M/mm3 (4.20-5.40); Red Cell Distribution Width 17.1 % (11.5-17.5)
--- NOTE | 2018-04-03 14:54 | Discharge Summary ---
General - General Admission date:: 03/31/18 Discharge date: 04/03/18 HPI HPI: this wf with known metastatic breast cancer who presents with confusion in the ed - 7 years old white female cancer survivor with complex past medical history. She was brought by her daughter Chantale reports that she was last seen normal last night. His morning she went out with a friend who became concerned and contacted her daughter"Chantale" who in turn called her and she found her confused over the phone so she brought her to the ED. the patient is alert knows her daughter's name but she is unable to name the president, she knows it is a hospital but she does not know which Hospital, she is disoriented to day and date. Hospital Course Hospital Course: Culture positive for staph as evidenced to the tetracycline,discharge on minocycline Spoke with Anna Marie stapleton at Dr. Peters's office patient has an appointment SaturdayApril 08 at 930, she requests that she does not take her Ibrance and she can contiune letrozole day we will reevaluate at appointment on Saturday. Patient needs to keep this appointment on Saturday. Today patient states she feels better will discharge home and follow-up next Saturday with Dr. Marlow. Objective Vital signs: Temp Pulse Resp BP Pulse Ox 98.4 F 103 H 16 121/54 94 L 04/03/18 07:55 04/03/18 07:55 04/03/18 07:55 04/03/18 07:55 04/03/18 09:00 no acute distress - *Routine HEENT Exam Head: Present: normocephalic Eye: Present: PERRL ENT: Present: mucous membranes moist - *Routine Neck Exam Present: supple, full ROM - *Routine Respiratory Exam Present: CTA bilaterally - *Routine Cardiovascular Exam Present: RRR - *Routine Abdominal Exam Present: soft, normoactive bowel sounds - *Routine Extremities Exam Present: full ROM - *Routine Skin Exam Present: intact - *Routine Neurological Exam Present: alert, oriented X3, CN II-XII intact - Routine Psychiatric Exam Present: normal affect, normal thought process Results Labs on day of discharge: Labs from last 24 hours 04/03/18 04/03/18 04/03/18 11:34 08:45 05:39 WBC 3.0 L RBC 3.91 L Hgb 10.7 L Hct 33.9 L MCV 86.6 MCH 27.2 MCHC 31.4 L RDW 17.1 Plt Count 203 MPV 7.4 Neut % (Auto) 50.9 Lymph % (Auto) 37.4 [place] % (Auto) 6.9 Eos % (Auto) 3.6 Baso % (Auto) 1.1 Neut # (Auto) 1.5 L Lymph # (Auto) 1.1 [place] # (Auto) 0.2 Eos # (Auto) 0.1 Baso # (Auto) 0.0 POC Glucose 291 H 270 H 04/02/18 04/02/18 20:43 17:17 WBC RBC Hgb Hct MCV MCH MCHC RDW Plt Count MPV Neut % (Auto) Lymph % (Auto) [place] % (Auto) Eos % (Auto) Baso % (Auto) Neut # (Auto) Lymph # (Auto) [place] # (Auto) Eos # (Auto) Baso # (Auto) POC Glucose 299 H 312 H* Preliminary micro results at discharge 03/31/18 14:20 Blood Culture - Preliminary Blood NO GROWTH AFTER 48 HOURS 03/31/18 14:20 Blood Culture - Preliminary Blood NO GROWTH AFTER 48 HOURS - Additional Comments rounded with jonnathan all orders per jonnathan DS: Diagnosis - Discharge Diagnosis (1) Altered mental status, unspecified Status: Acute (2) Hyponatremia Status: Acute (3) Diabetes mellitus Status: Acute (4) Metastatic breast cancer Status: Acute (5) UTI (urinary tract infection) Status: Acute Discharge Plan - Patient Discharge Instructions ACTIVITY: Continue current activity DIET: continue same diet Patient Instructions: Urinary Tract Infection - Follow up Plan Follow up with: Vaughn Peters [Referring] - 04/08/18 9:30 am Juan Marlow MD [Primary Care Provider] - 04/09/18 Disposition: Home, Self-Fdc Medications: Home Medications Medication Instructions Recorded Confirmed Type Aspirin [Low Dose Aspirin EC] 81 mg PO DAILY 03/16/18 03/31/18 History Palbociclib [Ibrance] 100 mg PO DAILY 03/16/18 03/31/18 History Letrozole 2.5 mg PO DAILY 03/21/18 03/31/18 History glipiZIDE [Glipizide ER] 5 mg PO DAILY 03/31/18 03/31/18 History Omeprazole [Omeprazole 20mg 20 mg PO DAILY 04/01/18 04/01/18 History Capsule] Prescriptions/Medication Reconciliation: New Minocycline HCl 100 mg PO BID 7 Days #14 tab Continue atorvastatin 10 mg tablet 10 mg PO DAILY 90 Days #90 tab hydralazine 10 mg tablet 10 mg PO TID 90 Days #270 tab metformin 500 mg tablet 500 mg PO BID 90 Days #180 tab amlodipine 5 mg tablet 5 mg PO DAILY 90 Days #90 tab Aspirin [Low Dose Aspirin EC] 81 mg PO DAILY Oxycodone HCl/Acetaminophen [Percocet 7.5/325mg tablet] 1 tab PO Q8H PRN #30 tablet PRN Reason: Moderate To Severe Pain glipiZIDE [Glipizide ER] 5 mg PO DAILY Letrozole 2.5 mg PO DAILY Omeprazole [Omeprazole 20mg Capsule] 20 mg PO DAILY Discontinued Palbociclib [Ibrance] 100 mg PO DAILY Hydrocodone/Acetaminophen [Hydrocodone-Acetamin 5-325 mg] 1 each PO Q4H PRN 3 Days #18 tab PRN Reason: Moderate To Severe Pain
[2018-04-03 15:45] VITALS: BP 154/91
== END 2018-04-03 16:15 | disposition home or self-care (01) ==
LOC: ER 13:22 → 2ND 13:22
PROVIDERS: ADMIT Emergency Medicine; ATTEND Emergency Medicine
CPT/HCPCS: 36415; 70450; 71020; 71046; 80048; 80053; 80329; 81001; 82140; 82310; 82550; 82553; 82803; 82947; 82962; 83605; 84484; 85014; 85018; 85025; 86850; 87040; 87086; 87088; 87186; 96365; 99283; G0378; P9016

== ENCOUNTER 2018-04-03 21:22 | Observation (INO) ==
[2018-04-03 21:52] LABS: Basophils % 0.9 % (0.1-2.0); Eosinophils # 0.1 K/mm3 (0.0-0.4); Eosinophils % 1.4 % (0.1-12.0); Hemoglobin 10.9 g/dL (12.2-16.2); Lymphocytes # 1.8 K/mm3 (0.7-4.5); Lymphocytes % 43.2 K/mm3 (10-50); Mean Corpuscular Hemoglobin 27.4 pg (27.0-31.2); Mean Corpuscular Volume 88.2 fl (81-99); Mean Platelet Volume 7.3 fl (7.4-10.4); Monocytes # 0.3 K/mm3 (0.1-1.0); Monocytes % 7.3 % (1.7-9.3); Neutrophils % 47.2 % (37.0-80.0); Platelet Count 179 K/mm3 (142-424); Red Blood Count 3.97 M/mm3 (4.20-5.40); Red Cell Distribution Width 17.2 % (11.5-17.5); White Blood Count 4.2 K/mm3 (4.8-10.8)
[2018-04-03 22:02] LABS: Appearance,Urine CLEAR (Clear); Bilirubin,Urine Negative (Negative); Blood, Urine Negative (Negative); Color,Urine YELLOW (Yellow); Glucose,Urine (UA) 3+ (Negative); Ketones,Urine Negative (Negative); Leukocyte Esterase,Urine Negative (Negative); Microscopic, Urine URINE MICROSCOPIC (MICROSCOPIC); PH,Urine 5.5 (5.0-8.5); Protein,Urine Negative (Negative); Specific Gravity, Urine 1.015 (1.005-1.030); Urobilinogen,Urine 0.2 EU/dl (0.2)
[2018-04-03 22:07] LABS: Alanine Aminotransferase 59 U/L (12-78); Albumin Level 2.4 gm/dL (3.4-5.0); Albumin/Globulin Ratio 0.5 (1.1-1.8); Alkaline Phosphatase 412 U/L (46-116); Aspartate Amino Transferase 110 U/L (15-37); Bilirubin,Total 0.7 mg/dL (0.2-1.0); Blood Urea Nitrogen 11 mg/dL (7-18); Carbon Dioxide 26 mmol/L (21.0-32.0); Chloride 96 mmol/L (98-107); Glucose 383 mg/dL (74-106); Sodium 134 mmol/L (136-145); Total Protein,Serum 7.4 gm/dL (6.4-8.2)
[2018-04-03 22:09] LABS: Amylase 46 U/L (25-125); Lipase 416 u/L (73-393)
[2018-04-03 22:14] LABS: Calcium 9.5 mg/dL (8.5-10.1)
[2018-04-03 22:19] LABS: RBC,Urine Occasional #/hpf (0-3); WBC,Urine Occasional #/hpf (0-3)
[2018-04-03 22:23] LABS: Amorphous Sediment,Urine 1+ /lpf; Bacteria,Urine 1+ /lpf; Fine Granular Casts,Urine Occasional #/lpf (0); Hyaline Casts,Urine Occasional #/lpf (0); Squamous Epithelial Cell,Urine Occasional #/hpf (0-5)
--- NOTE | 2018-04-03 23:20 | Emergency Department Note ---
ED Disposition Clinical Impression: Metastatic breast cancer, Hypokalemia Altered mental status Qualifiers: Altered mental status type: unspecified Qualified Code(s): R41.82 - Altered mental status, unspecified Fever Qualifiers: Fever type: due to other condition Qualified Code(s): R50.81 - Fever presenting with conditions classified elsewhere Sepsis Qualifiers: Sepsis type: sepsis due to unspecified organism Qualified Code(s): A41.9 - Sepsis, unspecified organism Disposition: Admitted As Inpatient Condition on Discharge: Fair - Critical Care Critical Care Time: Yes Attestation: On 04/03/18, the high probability of a clinically significant, sudden or life threatening deterioration of the following system(s) required my full and direct attention, intervention and personal management. The time I documented below is in addition to time spent performing reported procedures but includes the following listed in this critical care notation. Total Critical Care Time: 75 Vital system(s) involved:: Circulatory Failure My critical care processes included: Assessment & monitoring of V/S, Initial and Re-exams, Data Review/Interpretation, Coordinating Care, Medication Orders and management, Documentation Medical Decision Making - Medical Records Medical records reviewed: Yes: I reviewed the patient's medical records. - Cooper Inquiry Pt receiving controlled substance: No Vital Signs: 04/03/18 21:26 04/03/18 22:54 04/03/18 23:49 Temperature 100.8 F H 96.8 F L Temperature Source Oral Oral Pulse Rate 100 H Pulse Rate [Right Brachial] 129 H 102 H Respiratory Rate 16 18 18 Blood Pressure 148/79 Blood Pressure [Right Arm] 155/104 141/50 Blood Pressure Mean [Right Arm] 121 80 Blood Pressure Source [Right Arm] Automatic Cuff Blood Pressure Position [Right Arm] Sitting 02 Sat by Pulse Oximetry 95 97 Oxygen Delivery Method Room Air Nasal Cannula Oxygen Flow Rate (LPM) 2 - Lab Data Lab results reviewed: Yes: I reviewed the patient's lab results. Lab Results 04/03/18 21:35: WBC 4.2 L D, RBC 3.97 L, Hgb 10.9 L, Hct 35.0 L, MCV 88.2, MCH 27.4, MCHC 31.0 L, RDW 17.2, Plt Count 179, MPV 7.3 L, Neut % (Auto) 47.2, Lymph % (Auto) 43.2, [place] % (Auto) 7.3, Eos % (Auto) 1.4, Baso % (Auto) 0.9, Neut # (Auto) 2.0, Lymph # (Auto) 1.8, [place] # (Auto) 0.3, Eos # (Auto) 0.1, Baso # (Auto) 0.0 04/03/18 21:35: Sodium 134 L, Potassium 3.0 L, Chloride 96 L, Carbon Dioxide 26 , Anion Gap 15.0, BUN 11, Creatinine 1.08 H D, Estimated Creat Clear 89, Estimated GFR 52 L, Est GFR ( Amer) 63 D, Glucose 383 H, Calcium 9.5 D , Total Bilirubin 0.7, AST 110 H D, ALT 59 D, Alkaline Phosphatase 412 H, Troponin I < 0.02, Total Protein 7.4, Albumin 2.4 L, Globulin 5.0 H, Albumin/ Globulin Ratio 0.5 L 04/03/18 21:35: Lactic Acid 3.5 H 04/03/18 21:35: Amylase 46, Lipase 416 H 04/03/18 21:50: Urine Color Yellow, Urine Appearance Clear, Urine pH 5.5, Ur Specific [place] 1.015, Urine Protein Negative, Urine Glucose (UA) 3+, Urine Ketones Negative, Urine Blood Negative, Urine Nitrate Negative, Urine Bilirubin Negative, Urine Urobilinogen 0.2, Ur Leukocyte Esterase Negative, Urine RBC Occasional, Urine WBC Occasional, Ur Squamous Epith Cells Occasional, Amorphous Sediment 1+, Urine Bacteria 1+, Hyaline Casts Occasional, Fine Granular Casts Occasional Result diagrams: 04/03/18 21:35 04/03/18 21:35 Orders (Tests/Meds): ED MEDICATIONS Generic Name Dose Route Start Last Admin Trade Name Freq PRN Reason Stop Dose Admin Acetaminophen 500 mg 04/03/18 23:40 Tylenol 500mg Tablet PO 05/03/18 23:24 Q6HP PRN Fever > 100.4 Amlodipine Besylate 5 mg 04/04/18 09:00 Norvasc 5mg Tablet PO 05/04/18 08:59 DAILY [facility] Aspirin 81 mg 04/04/18 09:00 Aspirin 81mg Enteric Coated Tablet PO 05/04/18 08:59 DAILY [facility] Atorvastatin Calcium 10 mg 04/04/18 21:00 Lipitor 10mg Tablet PO 05/04/18 20:59 HS [facility] Glipizide 5 mg 04/04/18 09:00 Glucotrol Xl 5mg Tablet PO 05/04/18 08:59 DAILY [facility] Hydralazine HCl 10 mg 04/04/18 09:00 Apresoline 10mg Tablet PO 05/04/18 08:59 TID [facility] Sodium Chloride 1,000 mls @ 125 mls/hr 04/03/18 23:40 04/04/18 06:56 Sod Chlor 0.9% 1000ml Bag IV 05/03/18 23:39 125 mls/hr .Q8H [facility] Administration Vancomycin HCl 1,500 mg/ 250 mls @ 125 mls/hr 04/04/18 09:00 Sodium Chloride IV 04/18/18 08:59 Q12 [facility] Protocol Lorazepam 1 mg 04/04/18 02:00 04/04/18 06:11 Ativan 2mg/Ml Vial IV 05/04/18 01:59 1 mg Q4HP PRN Administration Seizures Non-Formulary Medication 2.5 mg 04/04/18 09:00 Letrozole [Letrozole] PO 05/04/18 08:59 DAILY [facility] Non-Formulary Medication 100 mg 04/04/18 09:00 Minocycline Hcl [Minocycline Hcl] PO 05/04/18 08:59 BID [facility] Oxycodone/Acetaminophen 1 each 04/03/18 23:40 Percocet 7.5/325mg Tablet PO 05/03/18 23:39 Q8H PRN Moderate to Severe Pain Sodium Chloride 10 ml 04/03/18 23:40 Saline Flush 10ml Syringe IV 05/03/18 23:39 NEEDED PRN Maintain IV Site Discontinued Medications Generic Name Dose Route Start Last Admin Trade Name Freq PRN Reason Stop Dose Admin Acetaminophen 650 mg 04/03/18 21:42 04/03/18 21:54 Acetaminophen 325mg Tab PO 04/03/18 21:43 650 mg ONCE ONE Administration Acetaminophen 500 mg 04/03/18 23:25 Tylenol 500mg Tablet PO 05/03/18 23:24 Q6HP PRN Fever > 100.4 Sodium Chloride 1,000 mls @ 999 mls/hr 04/03/18 21:45 04/03/18 21:55 Sod Chlor 0.9% 1000ml Bag IV 04/03/18 22:45 999 mls/hr .Q1H1M [facility] Administration Sodium Chloride 1,000 mls @ 999 mls/hr 04/03/18 22:00 04/03/18 23:48 Sod Chlor 0.9% 1000ml Bag IV 04/03/18 23:00 999 mls/hr .Q1H1M [facility] Administration Vancomycin HCl 2,000 mg/ 250 mls @ 125 mls/hr 04/03/18 23:13 04/03/18 23:25 Sodium Chloride IV 04/03/18 23:14 125 mls/hr ONCE ONE Administration Protocol Iopamidol 100 ml 04/03/18 22:27 04/03/18 22:29 [id number]; 100ml Vial IV 04/03/18 22:28 100 ml ONCE ONE Administration Miscellaneous 1 each 04/03/18 23:15 04/03/18 23:25 Vancomycin Consult Request * 05/03/18 23:14 1 each [facility] Administration Sodium Chloride 10 ml 04/03/18 22:27 04/03/18 22:29 Rad-Saline Flush 10ml Syringe IV 04/03/18 22:28 10 ml ONCE ONE Administration ORDERS Category Date Time Status Blood Culture Stat Micro 04/03/18 22:01 Stop Req - Physician Consults Physician Consulted: Dr Zhou covering for Dr Marlow Time: 23:10 Reason -: Admission, Pt condition Altered Mental Status HPI - General Chief Complaint: Altered Mental Status Stated Complaint: mental status changes Time Seen by Provider: 04/03/18 22:00 Mode of Arrival: Ambulatory Source of Information: Patient Limitations: No Limitations Description of Symptoms (Recalled from ER Triage Doc. by RN): Recently dx with metastatic breast ca, was discharged today from this facility following admission for AMS and Breast CA. reports patient was not confused at dc today, she ate dinner, laid down at 8pm, and woke up confused approx 30 min ago. Family reports right sided facial drooping at home, slurred speech. At triage, pt NIHSS scale is 2. Pt alert and oriented, able to follow commands, no facial drooping noted, no drifts noted on extremities. - History of Present Illness MD complaint: altered mental status Onset (ago): hour(s) (1) Timing confirmed by: family member Severity: moderate Consistency of symptoms: waxing and waning Context: history of similar presentation, cancer (brest with mets) Associated symptoms: fever, chills, loss of appetite, malaise, weakness - Related Data Home Medications Medication Instructions Recorded Confirmed Aspirin [Low Dose Aspirin EC] 81 mg PO DAILY 03/16/18 04/03/18 Letrozole 2.5 mg PO DAILY 03/21/18 04/03/18 glipiZIDE [Glipizide ER] 5 mg PO DAILY 03/31/18 04/03/18 Omeprazole [Omeprazole 20mg 20 mg PO DAILY 04/01/18 04/03/18 Capsule] Minocycline HCl 100 mg PO BID 04/03/18 04/03/18 Previous Rx's Medication Instructions Recorded amlodipine 5 mg tablet 5 mg PO DAILY 90 Days #90 tab 03/17/18 atorvastatin 10 mg tablet 10 mg PO DAILY 90 Days #90 tab 03/17/18 hydralazine 10 mg tablet 10 mg PO TID 90 Days #270 tab 03/17/18 metformin 500 mg tablet 500 mg PO BID 90 Days #180 tab 03/17/18 Oxycodone HCl/Acetaminophen 1 tab PO Q8H PRN #30 tablet 03/29/18 [Percocet 7.5/325mg tablet] Allergies Allergy/AdvReac Type Severity Reaction Status Date / Time lisinopril [LISINOPRIL] Allergy Severe Anaphylaxis Verified 03/19/18 10:30 naproxen [From [facility]VE] Allergy Mild Rash Verified 03/19/18 10:30 [facility] History I have reviewed the patient's past medical history: Yes Medical History: Reports:: Cancer (metastatic breast ca), Diabetes Mellitus Type 2, Gastroesophageal Reflux Disease(GERD), Hyperlipidemia, Hypertension Denies:: Diabetes Mellitus Type 1, Internal Pacemaker, MRSA Other Medical History: Reports: Other (current pneumonia) Laterality Cases: Left: Lumpectomy, Bilateral: Carpal Tunnel Release Other Surgeries: Yes: Angioplasty, Cancer Surgery. No: Pacemaker Amputation: No Fractures: No - Social History Smoking Status: Former smoker Tobacco Type: cigarettes #Yrs smoked (if former smoker): 30 Alcohol Intake: never Alcohol Intake Frequency:: other Substance Use Type: denies use Occupational Status: employed Housing: house Household Members: spouse - Psychiatric History Expresses thoughts of harming self/others: None Suicide Plan Description: No Plan Family Hx:: Cancer ROS Obtained: Yes All systems reviewed & no additional complaints, Yes Systems reviewed as appropriate & no additional complaints - Constitutional Constitutional: Reports body ache, Reports chills, Reports fatigue, Reports fever(s) - Neurologic Neurologic: Reports system reviewed and no additional complaints, except as docu , Reports as per HPI, Reports other (episode of confusion) Physical Exam - General General appearance: alert, in distress (mild) - Head Head exam: atraumatic, normocephalic, normal inspection - Eye Eye exam: Present: normal appearance, PERRL, EOMI, other (normal fundi) - Neck Neck exam: Present: normal inspection, full ROM, trachea midline. Absent: meningismus, lymphadenopathy - Chest Chest inspection: Present: normal inspection, symmetric chest wall rise. Absent : tenderness - Respiratory Respiratory exam: Present: normal lung sounds bilaterally. Absent: respiratory distress - Cardiovascular Cardiovascular exam: Present: tachycardia. Absent: JVD - Abdominal Exam Abdominal exam: Present: soft, normal bowel sounds, other (obese). Absent: distention, tenderness, guarding - Extremities Exam Extremities exam: Present: normal inspection, full ROM, normal capillary refill. Absent: calf tenderness - Neurological Exam Neurological exam: Present: alert, oriented X3, CN II-XII intact - Psychiatric Psychiatric exam: Present: flat affect - Skin Skin exam: Present: warm, dry, normal color, other (rigth sided chest indwelling central venous catheter)
[2018-04-04 07:20] VITALS: BP 123/70
--- NOTE | 2018-04-04 07:26 | Pharmacy Consult Notes ---
[facility] Pharmacy VTE Monitoring - Patient Demographics Admission date: 04/03/18 Report Date: 04/04/18 Time: 07:26 Allergies/Adverse Reactions: Patient Allergies lisinopril [LISINOPRIL] Allergy (Severe, Verified 03/19/18 10:30) Anaphylaxis naproxen [From ALEVE] Allergy (Mild, Verified 03/19/18 10:30) Rash Height: 1.68 m Weight: 98.6 kg Patient Problems: Current Active Problems Metastatic breast cancer (Acute) Altered mental status, unspecified (Acute) Fever (Acute) Sepsis (Acute) - VTE Risk Labs: VTE Related Lab Results Hgb 10.9 g/dL (12.2-16.2) L 04/03/18 21:35 Hct 35.0 % (37.0-47.0) L 04/03/18 21:35 Plt Count 179 K/mm3 (142-424) 04/03/18 21:35 BUN 11 mg/dL (7-18) 04/03/18 21:35 Creatinine 1.08 mg/dL (0.55-1.02) H D 04/03/18 21:35 Estimated Creat Clear 89 mL/min (0-300) 04/03/18 21:35 VTE Score: 6 VTE Risk Level: Moderate Risk - Prophylaxis VTE Prophylaxis Ordered?: Yes Types of VTE Prophylaxis: TEDS Knee High Location of Applied Device: Bilateral Lower Extremeties - VTE Diagnosis Confirmed Treatment or plan recommended: Continue Current Treatment
--- NOTE | 2018-04-04 08:03 | Pharmacy Consult Notes ---
- Pharmacy Consult Date: 04/04/18 Time: 08:00 Referring provider: DR. MARIE Reason for Consult:: VANCOMYCIN DOSING Allergies and ADEs:: Allergies Allergy/AdvReac Type Severity Reaction Status Date / Time lisinopril [LISINOPRIL] Allergy Severe Anaphylaxis Verified 03/19/18 10:30 naproxen [From [facility]] Allergy Mild Rash Verified 03/19/18 10:30 Home Medications:: Home Medications Medication Instructions Recorded Confirmed Type Aspirin [Low Dose Aspirin EC] 81 mg PO DAILY 03/16/18 04/03/18 History Letrozole 2.5 mg PO DAILY 03/21/18 04/03/18 History glipiZIDE [Glipizide ER] 5 mg PO DAILY 03/31/18 04/03/18 History Omeprazole [Omeprazole 20mg 20 mg PO DAILY 04/01/18 04/03/18 History Capsule] Minocycline HCl 100 mg PO BID 04/03/18 04/03/18 History Height: 1.68 m Weight: 98.6 kg Laboratory Results:: Laboratory Results - last 24 hr 04/03/18 21:35: WBC 4.2 L D, RBC 3.97 L, Hgb 10.9 L, Hct 35.0 L, MCV 88.2, MCH 27.4, MCHC 31.0 L, RDW 17.2, Plt Count 179, MPV 7.3 L, Neut % (Auto) 47.2, Lymph % (Auto) 43.2, [place] % (Auto) 7.3, Eos % (Auto) 1.4, Baso % (Auto) 0.9, Neut # (Auto) 2.0, Lymph # (Auto) 1.8, [place] # (Auto) 0.3, Eos # (Auto) 0.1, Baso # (Auto) 0.0 04/03/18 21:35: Sodium 134 L, Potassium 3.0 L, Chloride 96 L, Carbon Dioxide 26 , Anion Gap 15.0, BUN 11, Creatinine 1.08 H D, Estimated Creat Clear 89, Estimated GFR 52 L, Est GFR ( Amer) 63 D, Glucose 383 H, Calcium 9.5 D , Total Bilirubin 0.7, AST 110 H D, ALT 59 D, Alkaline Phosphatase 412 H, Troponin I < 0.02, Total Protein 7.4, Albumin 2.4 L, Globulin 5.0 H, Albumin/ Globulin Ratio 0.5 L 04/03/18 21:35: Lactic Acid 3.5 H 04/03/18 21:35: Amylase 46, Lipase 416 H 04/03/18 21:50: Urine Color Yellow, Urine Appearance Clear, Urine pH 5.5, Ur Specific [place] 1.015, Urine Protein Negative, Urine Glucose (UA) 3+, Urine Ketones Negative, Urine Blood Negative, Urine Nitrate Negative, Urine Bilirubin Negative, Urine Urobilinogen 0.2, Ur Leukocyte Esterase Negative, Urine RBC Occasional, Urine WBC Occasional, Ur Squamous Epith Cells Occasional, Amorphous Sediment 1+, Urine Bacteria 1+, Hyaline Casts Occasional, Fine Granular Casts Occasional 04/04/18 02:05: Lactic Acid Fup @ 4Hr 1.0 04/04/18 05:37: POC Glucose 281 H Medical History: Reports:: Cancer (metastatic breast ca), Diabetes Mellitus Type 2, Gastroesophageal Reflux Disease(GERD), Hyperlipidemia, Hypertension Denies:: Diabetes Mellitus Type 1, Internal Pacemaker, MRSA Assessment and Plan - Assessment and plan all Dx Assessment and Plan for all problems:: BASED ON PATIENT FACTORS, RECOMMEND VANCOMYCIN 2 GM IV ONCE, FOLLOWED BY VANCOMYCIN 1750 MG IV Q18H. WILL OBTAIN VANCOMYCIN TROUGH LEVEL PRIOR TO 4TH DOSE.
[2018-04-04 09:12] LABS: Basophils % 0.6 % (0.1-2.0); Eosinophils # 0.1 K/mm3 (0.0-0.4); Hematocrit 32.5 % (37.0-47.0); Hemoglobin 10.1 g/dL (12.2-16.2); Lymphocytes # 1.4 K/mm3 (0.7-4.5); Lymphocytes % 39.8 K/mm3 (10-50); Mean Corpuscular HGB Conc 31.2 g/dL (31.8-35.4); Mean Corpuscular Hemoglobin 27.5 pg (27.0-31.2); Mean Corpuscular Volume 88.2 fl (81-99); Mean Platelet Volume 7.6 fl (7.4-10.4); Monocytes # 0.3 K/mm3 (0.1-1.0); Monocytes % 7.9 % (1.7-9.3); Neutrophils # 1.6 K/mm3 (1.8-7.8); Neutrophils % 47.7 % (37.0-80.0); Platelet Count 169 K/mm3 (142-424); Red Blood Count 3.68 M/mm3 (4.20-5.40); White Blood Count 3.4 K/mm3 (4.8-10.8)
[2018-04-04 09:27] LABS: Albumin Level 2.2 gm/dL (3.4-5.0); Albumin/Globulin Ratio 0.5 (1.1-1.8); Anion Gap 12.3 mEq/L (5-15); Bilirubin,Total 0.6 mg/dL (0.2-1.0); Calcium 8.7 mg/dL (8.5-10.1); Globulin 4.6 gm/dl (1.3-3.2); Potassium 3.3 mmoL/L (3.5-5.1); Total Protein,Serum 6.8 gm/dL (6.4-8.2)
--- NOTE | 2018-04-04 10:08 | H&P/Discharge Summary ---
General - General Admission date:: 04/03/18 Discharge date: 04/04/18 *Admission Date: 04/03/18 *Chief complaint: seizure *History of present illness: 57-year-old female recently dx with metastatic breast ca, was discharged yesterday from this facility following admission for AMS. reports patient was not confused at dc yesterday, she ate dinner, laid down at 8pm, and woke up confused approx 30 min ago. Family reports right sided facial drooping at home, slurred speech. At triage in the ed pt NIHSS scale is 2. Pt alert and oriented, able to follow commands, no facial drooping noted, no drifts noted on extremities. Patient admitted for altered mental status and elevated lactic acid possible sepsis. [facility] History I have reviewed the patient's past medical history: Yes Medical History: Reports:: Cancer (metastatic breast ca), Diabetes Mellitus Type 2, Gastroesophageal Reflux Disease(GERD), Hyperlipidemia, Hypertension Denies:: Diabetes Mellitus Type 1, Internal Pacemaker, MRSA Other Medical History: Reports: Chemotherapy, Other (current pneumonia) Laterality Cases: Left: Lumpectomy, Bilateral: Carpal Tunnel Release Other Surgeries: Yes: Angioplasty, Cancer Surgery. No: Pacemaker Amputation: No Fractures: No - *Social History Smoking Status: Former smoker Tobacco Type: cigarettes #Yrs smoked (if former smoker): 30 Alcohol Intake: never Alcohol Intake Frequency:: other Substance Use Type: denies use Occupational Status: employed Housing: house Household Members: spouse - Psychiatric History Expresses thoughts of harming self/others: None Suicide Plan Description: No Plan *Family Hx:: Cancer Review of Systems - Constitutional Denies body ache(s), Denies chills, Denies fatigue - Eyes Denies change in vision - ENT Denies change in voice - *Cardiovascular Denies chest pain with activity - *Respiratory Denies chest congestion, Denies cough - *Gastrointestinal Denies change in bowel habits - *Genitourinary Reports urinary urgency, Denies urinary incontinence - *Musculoskeletal Denies decreased muscle mass, Denies stiffness - Integumentary/Breasts Denies bleeding lesions - *Neurologic Reports weakness, Reports other (episode of confusion) - Psychiatric Denies panic attacks - Endocrine Denies excessive sweating - Hematologic/Lymphatic Denies enlarged lymph nodes - Allergic/Immunologic Denies lip swelling Exam Vital signs and Labs for Last 24 Hours: Temp Pulse Resp BP Pulse Ox 98.5 F 90 20 123/70 96 04/04/18 07:19 04/04/18 07:19 04/04/18 07:19 04/04/18 07:19 04/04/18 08:00 Laboratory Results - last 24 hr 04/03/18 21:35: WBC 4.2 L D, RBC 3.97 L, Hgb 10.9 L, Hct 35.0 L, MCV 88.2, MCH 27.4, MCHC 31.0 L, RDW 17.2, Plt Count 179, MPV 7.3 L, Neut % (Auto) 47.2, Lymph % (Auto) 43.2, [place] % (Auto) 7.3, Eos % (Auto) 1.4, Baso % (Auto) 0.9, Neut # (Auto) 2.0, Lymph # (Auto) 1.8, [place] # (Auto) 0.3, Eos # (Auto) 0.1, Baso # (Auto) 0.0 04/03/18 21:35: Sodium 134 L, Potassium 3.0 L, Chloride 96 L, Carbon Dioxide 26 , Anion Gap 15.0, BUN 11, Creatinine 1.08 H D, Estimated Creat Clear 89, Estimated GFR 52 L, Est GFR ( Amer) 63 D, Glucose 383 H, Calcium 9.5 D , Total Bilirubin 0.7, AST 110 H D, ALT 59 D, Alkaline Phosphatase 412 H, Troponin I < 0.02, Total Protein 7.4, Albumin 2.4 L, Globulin 5.0 H, Albumin/ Globulin Ratio 0.5 L 04/03/18 21:35: Lactic Acid 3.5 H 04/03/18 21:35: Amylase 46, Lipase 416 H 04/03/18 21:50: Urine Color Yellow, Urine Appearance Clear, Urine pH 5.5, Ur Specific [place] 1.015, Urine Protein Negative, Urine Glucose (UA) 3+, Urine Ketones Negative, Urine Blood Negative, Urine Nitrate Negative, Urine Bilirubin Negative, Urine Urobilinogen 0.2, Ur Leukocyte Esterase Negative, Urine RBC Occasional, Urine WBC Occasional, Ur Squamous Epith Cells Occasional, Amorphous Sediment 1+, Urine Bacteria 1+, Hyaline Casts Occasional, Fine Granular Casts Occasional 04/04/18 02:05: Lactic Acid Fup @ 4Hr 1.0 04/04/18 05:37: POC Glucose 281 H 04/04/18 09:00: WBC 3.4 L, RBC 3.68 L, Hgb 10.1 L, Hct 32.5 L, MCV 88.2, MCH 27.5, MCHC 31.2 L, RDW 17.0, Plt Count 169, MPV 7.6, Neut % (Auto) 47.7, Lymph % (Auto) 39.8, [place] % (Auto) 7.9, Eos % (Auto) 4.0, Baso % (Auto) 0.6, Neut # ( Auto) 1.6 L, Lymph # (Auto) 1.4, [place] # (Auto) 0.3, Eos # (Auto) 0.1, Baso # ( Auto) 0.0 04/04/18 09:00: Sodium 137, Potassium 3.3 L, Chloride 101, Carbon Dioxide 27, Anion Gap 12.3, BUN 8 D, Creatinine 0.84 D, Estimated Creat Clear 114, Estimated GFR 70, Est GFR ( Amer) 84 D, Glucose 267 H D, Calcium 8.7, Total Bilirubin 0.6, AST 83 H, ALT 50, Alkaline Phosphatase 335 H, Total Protein 6.8, Albumin 2.2 L, Globulin 4.6 H, Albumin/Globulin Ratio 0.5 L I & O for Last 24 hours: Intake & Output 04/01/18 04/02/18 04/03/18 04/04/18 11:59 11:59 11:59 11:59 Intake Total 2550 / 2550 Balance 2550 / 2550 Weight 217 lb 6.012 oz - Constitutional no acute distress - *Routine HEENT Exam Head: Present: normocephalic Eye: Present: PERRL ENT: Present: mucous membranes moist - *Routine Neck Exam Present: supple, full ROM - *Routine Respiratory Exam Present: CTA bilaterally - *Routine Cardiovascular Exam Present: RRR - *Routine Abdominal Exam Present: soft, normoactive bowel sounds Comments: The catheter in place - *Routine Extremities Exam Present: full ROM - *Routine Skin Exam Present: intact - *Routine Neurological Exam Present: alert, oriented X3, CN II-XII intact - Routine Psychiatric Exam Present: normal affect, normal thought process Hospital Course Hospital Course: Today patient is alert and oriented slightly drowsy family states patient just got Ativan status post the seizure. After discussing treatment plan with patient and family they wish to be transferred to [facility] in [place] for second opinion related to her metastatic breast cancer and seizure activity. [facility] patient for [facility] oncology floor room 2122. We will transfer as soon as transport is available. Results Labs on day of discharge: Labs from last 24 hours 04/04/18 04/04/18 04/04/18 09:00 09:00 05:37 WBC 3.4 L RBC 3.68 L Hgb 10.1 L Hct 32.5 L MCV 88.2 MCH 27.5 MCHC 31.2 L RDW 17.0 Plt Count 169 MPV 7.6 Neut % (Auto) 47.7 Lymph % (Auto) 39.8 [place] % (Auto) 7.9 Eos % (Auto) 4.0 Baso % (Auto) 0.6 Neut # (Auto) 1.6 L Lymph # (Auto) 1.4 [place] # (Auto) 0.3 Eos # (Auto) 0.1 Baso # (Auto) 0.0 Sodium 137 Potassium 3.3 L Chloride 101 Carbon Dioxide 27 Anion Gap 12.3 BUN 8 D Creatinine 0.84 D Estimated Creat Clear 114 Estimated GFR 70 Est GFR ( Amer) 84 D Glucose 267 H D POC Glucose 281 H Lactic Acid Lactic Acid Fup @ 4Hr Calcium 8.7 Total Bilirubin 0.6 AST 83 H ALT 50 Alkaline Phosphatase 335 H Troponin I Total Protein 6.8 Albumin 2.2 L Globulin 4.6 H Albumin/Globulin Ratio 0.5 L Amylase Lipase Urine Color Urine Appearance Urine pH Ur Specific [place] Urine Protein Urine Glucose (UA) Urine Ketones Urine Blood Urine Nitrate Urine Bilirubin Urine Urobilinogen Ur Leukocyte Esterase Urine RBC Urine WBC Ur Squamous Epith Cells Amorphous Sediment Urine Bacteria Hyaline Casts Fine Granular Casts 04/04/18 04/03/18 04/03/18 02:05 21:50 21:35 WBC RBC Hgb Hct MCV MCH MCHC RDW Plt Count MPV Neut % (Auto) Lymph % (Auto) [place] % (Auto) Eos % (Auto) Baso % (Auto) Neut # (Auto) Lymph # (Auto) [place] # (Auto) Eos # (Auto) Baso # (Auto) Sodium Potassium Chloride Carbon Dioxide Anion Gap BUN Creatinine Estimated Creat Clear Estimated GFR Est GFR ( Amer) Glucose POC Glucose Lactic Acid Lactic Acid Fup @ 4Hr 1.0 Calcium Total Bilirubin AST ALT Alkaline Phosphatase Troponin I Total Protein Albumin Globulin Albumin/Globulin Ratio Amylase 46 Lipase 416 H Urine Color Yellow Urine Appearance Clear Urine pH 5.5 Ur Specific [place] 1.015 Urine Protein Negative Urine Glucose (UA) 3+ Urine Ketones Negative Urine Blood Negative Urine Nitrate Negative Urine Bilirubin Negative Urine Urobilinogen 0.2 Ur Leukocyte Esterase Negative Urine RBC Occasional Urine WBC Occasional Ur Squamous Epith Cells Occasional Amorphous Sediment 1+ Urine Bacteria 1+ Hyaline Casts Occasional Fine Granular Casts Occasional 04/03/18 04/03/18 04/03/18 21:35 21:35 21:35 WBC 4.2 L D RBC 3.97 L Hgb 10.9 L Hct 35.0 L MCV 88.2 MCH 27.4 MCHC 31.0 L RDW 17.2 Plt Count 179 MPV 7.3 L Neut % (Auto) 47.2 Lymph % (Auto) 43.2 [place] % (Auto) 7.3 Eos % (Auto) 1.4 Baso % (Auto) 0.9 Neut # (Auto) 2.0 Lymph # (Auto) 1.8 [place] # (Auto) 0.3 Eos # (Auto) 0.1 Baso # (Auto) 0.0 Sodium 134 L Potassium 3.0 L Chloride 96 L Carbon Dioxide 26 Anion Gap 15.0 BUN 11 Creatinine 1.08 H D Estimated Creat Clear 89 Estimated GFR 52 L Est GFR ( Amer) 63 D Glucose 383 H POC Glucose Lactic Acid 3.5 H Lactic Acid Fup @ 4Hr Calcium 9.5 D Total Bilirubin 0.7 AST 110 H D ALT 59 D Alkaline Phosphatase 412 H Troponin I < 0.02 Total Protein 7.4 Albumin 2.4 L Globulin 5.0 H Albumin/Globulin Ratio 0.5 L Amylase Lipase Urine Color Urine Appearance Urine pH Ur Specific [place] Urine Protein Urine Glucose (UA) Urine Ketones Urine Blood Urine Nitrate Urine Bilirubin Urine Urobilinogen Ur Leukocyte Esterase Urine RBC Urine WBC Ur Squamous Epith Cells Amorphous Sediment Urine Bacteria Hyaline Casts Fine Granular Casts - Additional Comments Rounded with Dr. Marlow all orders per Ele Discharge Medications Discharge Medications: Home Medications Medication Instructions Recorded Confirmed Type Aspirin [Low Dose Aspirin EC] 81 mg PO DAILY 03/16/18 04/04/18 History Letrozole 2.5 mg PO DAILY 03/21/18 04/04/18 History glipiZIDE [Glipizide ER] 5 mg PO DAILY 03/31/18 04/04/18 History Omeprazole [Omeprazole 20mg 20 mg PO DAILY 04/01/18 04/04/18 History Capsule] Minocycline HCl 100 mg PO BID 04/03/18 04/04/18 History Disposition Disposition: Home, Self-Care
== END 2018-04-04 11:53 | disposition short-term general hospital (02) ==
LOC: ER 21:22 → 2ND 21:22
PROVIDERS: ADMIT Family Medicine; ATTEND Emergency Medicine

== ENCOUNTER 2018-04-14 12:20 | Outpatient (CLI) | payer BC, SELFPAY ==
[2018-04-14 12:21] VITALS: BMI 33.9
[2018-04-14 12:52] LABS: Microscopic, Urine URINE MICROSCOPIC (MICROSCOPIC)
[2018-04-14 12:53] LABS: Basophils # 0.1 K/mm3 (0-0.2); Basophils % 1.1 % (0.1-2.0); Eosinophils # 0.1 K/mm3 (0.0-0.4); Eosinophils % 1.1 % (0.1-12.0); Hematocrit 32.6 % (37.0-47.0); Hemoglobin 10.2 g/dL (12.2-16.2); Lymphocytes # 1.7 K/mm3 (0.7-4.5); Lymphocytes % 39.1 K/mm3 (10-50); Mean Corpuscular HGB Conc 31.2 g/dL (31.8-35.4); Mean Corpuscular Hemoglobin 27.1 pg (27.0-31.2); Mean Corpuscular Volume 86.9 fl (81-99); Mean Platelet Volume 7.5 fl (7.4-10.4); Monocytes # 0.3 K/mm3 (0.1-1.0); Monocytes % 5.9 % (1.7-9.3); Neutrophils # 2.3 K/mm3 (1.8-7.8); Neutrophils % 52.8 % (37.0-80.0); Platelet Count 170 K/mm3 (142-424); Red Blood Count 3.75 M/mm3 (4.20-5.40); Red Cell Distribution Width 16.5 % (11.5-17.5); White Blood Count 4.4 K/mm3 (4.8-10.8)
[2018-04-14 12:56] LABS: Appearance,Urine CLEAR (Clear); Bilirubin,Urine Negative (Negative); Blood, Urine Negative (Negative); Color,Urine YELLOW (Yellow); Glucose,Urine (UA) Negative (Negative); Ketones,Urine Negative (Negative); Leukocyte Esterase,Urine TRACE (Negative); Nitrate,Urine Negative (Negative); PH,Urine 5.5 (5.0-8.5); Protein,Urine TRACE (Negative); Specific Gravity, Urine 1.025 (1.005-1.030)
[2018-04-14 13:06] LABS: Bacteria,Urine 4+ /lpf; WBC,Urine 20-50 #/hpf (0-3)
[2018-04-14 13:20] LABS: Alanine Aminotransferase 68 U/L (12-78); Albumin Level 2.4 gm/dL (3.4-5.0); Albumin/Globulin Ratio 0.5 (1.1-1.8); Alkaline Phosphatase 529 U/L (46-116); Anion Gap 10.7 mEq/L (5-15); Aspartate Amino Transferase 132 U/L (15-37); Bilirubin,Total 0.8 mg/dL (0.2-1.0); Blood Urea Nitrogen 11 mg/dL (7-18); Calcium 9.7 mg/dL (8.5-10.1); Carbon Dioxide 30 mmol/L (21.0-32.0); Chloride 96 mmol/L (98-107); Creatinine Clearance Estimated 91 mL/min (0-300); Creatinine,Serum 1.01 mg/dL (0.55-1.02); Estimated Glomerular Filt Rate 56 ml/min (>60); GFR (African American) 68 ML/MIN (>60); Globulin 5.3 gm/dl (1.3-3.2); Glucose 175 mg/dL (74-106); Phosphorous 3.3 mg/dL (2.4-4.9); Potassium 3.7 mmoL/L (3.5-5.1); Sodium 133 mmol/L (136-145); Total Protein,Serum 7.7 gm/dL (6.4-8.2)
== END 2018-04-14 12:40 | disposition home or self-care (01) ==
LOC: INF 16:11
PROVIDERS: Family Provider Emergency Medicine; PCP Emergency Medicine; Visit Provider Internal Medicine Hematology & Oncology
DX: C50.412 Malignant neoplasm of upper-outer quadrant of left female breast (principal); C79.51 Secondary malignant neoplasm of bone; Z17.0 Estrogen receptor positive status [ER+]
CPT/HCPCS: 80053; 81001; 84100; 85025; 87086; 87088; 87186; J1642

== ENCOUNTER 2018-04-21 12:41 | Outpatient (CLI) | payer BC, SELFPAY ==
[2018-04-21 12:42] VITALS: BMI 33.7
[2018-04-21 13:09] LABS: Basophils # 0.1 K/mm3 (0-0.2); Eosinophils # 0.1 K/mm3 (0.0-0.4); Eosinophils % 1.5 % (0.1-12.0); Hematocrit 31.5 % (37.0-47.0); Hemoglobin 9.6 g/dL (12.2-16.2); Lymphocytes # 2.2 K/mm3 (0.7-4.5); Lymphocytes % 46.7 K/mm3 (10-50); Mean Corpuscular HGB Conc 30.6 g/dL (31.8-35.4); Mean Corpuscular Hemoglobin 26.6 pg (27.0-31.2); Mean Corpuscular Volume 86.9 fl (81-99); Mean Platelet Volume 7.1 fl (7.4-10.4); Monocytes # 0.2 K/mm3 (0.1-1.0); Monocytes % 4.6 % (1.7-9.3); Neutrophils # 2.2 K/mm3 (1.8-7.8); Neutrophils % 46.1 % (37.0-80.0); Platelet Count 192 K/mm3 (142-424); Red Blood Count 3.62 M/mm3 (4.20-5.40); Red Cell Distribution Width 16.8 % (11.5-17.5); White Blood Count 4.7 K/mm3 (4.8-10.8)
[2018-04-21 13:17] LABS: Alanine Aminotransferase 74 U/L (12-78); Albumin Level 2.5 gm/dL (3.4-5.0); Albumin/Globulin Ratio 0.5 (1.1-1.8); Alkaline Phosphatase 560 U/L (46-116); Anion Gap 17.3 mEq/L (5-15); Aspartate Amino Transferase 190 U/L (15-37); Blood Urea Nitrogen 14 mg/dL (7-18); Calcium 9.6 mg/dL (8.5-10.1); Carbon Dioxide 24 mmol/L (21.0-32.0); Chloride 101 mmol/L (98-107); Creatinine Clearance Estimated 83 mL/min (0-300); Creatinine,Serum 1.11 mg/dL (0.55-1.02); Estimated Glomerular Filt Rate 50 ml/min (>60); GFR (African American) 61 ML/MIN (>60); Globulin 5.3 gm/dl (1.3-3.2); Glucose 111 mg/dL (74-106); Potassium 4.3 mmoL/L (3.5-5.1); Sodium 138 mmol/L (136-145); Total Protein,Serum 7.8 gm/dL (6.4-8.2)
== END 2018-04-21 12:55 | disposition home or self-care (01) ==
LOC: INF 12:41
PROVIDERS: Family Provider Emergency Medicine; PCP Emergency Medicine; Visit Provider Nurse Practitioner
DX: C50.412 Malignant neoplasm of upper-outer quadrant of left female breast (principal); Z17.0 Estrogen receptor positive status [ER+]; I74.4 Embolism and thrombosis of arteries of extremities, unspecified
CPT/HCPCS: 80053; 85025; J1642

== ENCOUNTER 2018-04-26 12:25 | Inpatient (IN) ==
--- NOTE | 2018-04-26 12:56 | Emergency Department Note ---
ED Disposition Clinical Impression: Sepsis Qualifiers: Sepsis type: sepsis due to unspecified organism Qualified Code(s): A41.9 - Sepsis, unspecified organism Pneumonia Qualifiers: Pneumonia type: due to unspecified organism Laterality: unspecified laterality Lung location: unspecified part of lung Qualified Code(s): J18.9 - Pneumonia, unspecified organism Breast cancer Qualifiers: Breast location: unspecified site of breast Estrogen receptor status: unspecified Patient sex: female Laterality: unspecified laterality Qualified Code(s): C50.919 - Malignant neoplasm of unspecified site of unspecified female breast Disposition: Admitted As Inpatient Condition on Discharge: Fair Referrals: Juan Marlow MD [Primary Care Provider] - Time of Disposition: 15:02 - Critical Care Critical Care Time: Yes Attestation: On 04/26/18, the high probability of a clinically significant, sudden or life threatening deterioration of the following system(s) required my full and direct attention, intervention and personal management. The time I documented below is in addition to time spent performing reported procedures but includes the following listed in this critical care notation. Total Critical Care Time: 35 Vital system(s) involved:: Metabolic Failure, Respiratory Failure My critical care processes included: Assessment & monitoring of V/S, Initial and Re-exams, Data Review/Interpretation, Coordinating Care, Medication Orders and management, Documentation Medical Decision Making - Medical Records Medical records reviewed: Yes: I reviewed the patient's medical records. - Cooper Inquiry Pt receiving controlled substance: No Cooper was queried for this patient: No Vital Signs: 04/26/18 12:26 04/26/18 14:39 Temperature 97.9 F 97.9 F Temperature Source Oral Oral Pulse Rate [Right Radial] 118 H 121 H Respiratory Rate 20 18 Blood Pressure [Right Arm] 154/101 162/82 Blood Pressure Mean [Right Arm] 118 108 Blood Pressure Source [Right Arm] Automatic Cuff Automatic Cuff Blood Pressure Position [Right Arm] Sitting Sitting 02 Sat by Pulse Oximetry 96 95 Oxygen Delivery Method Room Air Room Air - Lab Data Lab results reviewed: Yes: I reviewed the patient's lab results. Lab Results 04/26/18 12:40: Group A Strep Rapid Negative 04/26/18 13:30: WBC 3.7 L, RBC 3.70 L, Hgb 9.9 L, Hct 32.8 L, MCV 88.6, MCH 26.6 L, MCHC 30.1 L, RDW 17.4, Plt Count 179, MPV 7.0 L, Neut % (Auto) 52.8, Lymph % (Auto) 41.8, [place] % (Auto) 1.8, Eos % (Auto) 2.7, Baso % (Auto) 0.9, Neut # (Auto) 1.9, Lymph # (Auto) 1.5, [place] # (Auto) 0.1, Eos # (Auto) 0.1, Baso # (Auto) 0.0 04/26/18 13:30: Sodium 136, Potassium 4.5, Chloride 99, Carbon Dioxide 24, Anion Gap 17.5 H, BUN 14, Creatinine 1.24 H, Estimated Creat Clear 73, Estimated GFR 44 L, Est GFR ( Amer) 54 L, Glucose 145 H, Calcium 9.3, Total Bilirubin 1.3 H, AST 203 H, ALT 77, Alkaline Phosphatase 535 H, Total Protein 8.4 H, Albumin 2.7 L, Globulin 5.7 H, Albumin/Globulin Ratio 0.5 L 04/26/18 13:30: Lactic Acid 5.2 H 04/26/18 13:30: Influenza Type A Ag Negative, Influenza Type B Ag Negative Result diagrams: 04/26/18 13:30 04/26/18 13:30 Orders (Tests/Meds): ED MEDICATIONS Generic Name Dose Route Start Last Admin Trade Name Freq PRN Reason Stop Dose Admin Sodium Chloride 1,000 mls @ 999 mls/hr 04/26/18 14:45 04/26/18 14:46 Sod Chlor 0.9% 1000ml Bag IV 04/26/18 15:45 999 mls/hr .Q1H1M [place] Administration Levofloxacin/Dextrose 750 mg in 150 mls @ 100 mls/hr 04/26/18 14:45 Levofloxacin 750mg/150ml Premix IV 05/10/18 14:44 1100 [place] Protocol Sodium Chloride 1,000 mls @ 999 mls/hr 04/26/18 14:45 Sod Chlor 0.9% 1000ml Bag IV 04/26/18 15:45 .Q1H1M [place] Vancomycin HCl 2,000 mg/ 250 mls @ 125 mls/hr 04/26/18 17:00 Sodium Chloride IV 05/10/18 16:59 Q24H [place] Piperacillin Sod/Tazobactam 50 mls @ 100 mls/hr 04/26/18 15:00 04/26/18 14:48 Sod 3.375 gm/ Sodium Chloride IV 05/10/18 14:59 Not Given Q8H [facility] Protocol Discontinued Medications Generic Name Dose Route Start Last Admin Trade Name Julianna PRN Reason Stop Dose Admin Acetaminophen 650 mg 04/26/18 14:32 04/26/18 14:32 Acetaminophen 325mg Tab PO 04/26/18 14:33 650 mg ONCE ONE Administration Miscellaneous 1 each 04/26/18 14:45 Vancomycin Consult Request * 05/26/18 14:44 CONSULT PHARMACY [facility] ORDERS Category Date Time Status XR chest 2V Stat Exams 04/26/18 12:55 Taken Lactic Acid Follow Up (4 hr) Stat Lab 04/26/18 13:59 Ordered Blood Culture Stat Micro 04/26/18 13:30 Received Strep Screen Confirmation Stat Micro 04/26/18 12:40 Received ABG [Arterial Blood Gas] Stat RT 04/26/18 14:39 Ordered - Radiology Data #1 Image(s): Chest Image Reviewed: Yes I reviewed the patient's radiology results, Yes I discussed the image results w/the radiologist CXRk shows interstitial pneumonia and LLL infiltrate General Adult HPI - General Chief complaint: Upper Respiratory Infection Stated complaint: SOA, sore throat, ear pain Time Seen by Provider: 04/26/18 12:45 Mode of Arrival: Ambulatory Source of Information: Patient, Spouse Limitations: No Limitations Description of Symptoms (Recalled from ER Triage Doc. by RN): sore throat - History of Present Illness HPI narrative: Pt has a history of COPD, DM, HTN and Breast Cancer and takes a Chemo pill since 2015. In Mid March, she had a pneumonia and had a central line for IV antibioticcs for 10 days and after than had seizures worked up with and MRI and EEG but negative. Now comes to the ED with Upper respiratory symptoms for 24 hours with sore throat and hurts to swallow. Ears feel full but no fever. Some cough with mild sputum production. Location: chest - Related Data Home Medications Medication Instructions Recorded Confirmed Aspirin [Low Dose Aspirin EC] 81 mg PO DAILY 03/16/18 04/26/18 Letrozole 2.5 mg PO DAILY 03/21/18 04/26/18 glipiZIDE [Glipizide ER] 5 mg PO DAILY 03/31/18 04/26/18 Omeprazole [Omeprazole 20mg 20 mg PO DAILY 04/01/18 04/26/18 Capsule] Minocycline HCl 100 mg PO BID 04/03/18 04/26/18 calcium 600 mg-D3 800 unit-mag11 1 tab PO QHS 04/11/18 04/26/18 50 yi-yjel-chiikh-jimmy-s.borat tablet insulin glargine (U-100) 100 15 unit SUB-Q DAILY ml 04/11/18 04/26/18 unit/mL (3 mL) subcutaneous pen levetiracetam 750 mg tablet 1,500 mg PO Q12H 04/11/18 04/26/18 magnesium oxide 400 mg capsule 400 mg PO DAILY cap 04/11/18 04/26/18 meloxicam 15 mg tablet 15 mg PO DAILY tab 04/11/18 04/26/18 Previous Rx's Medication Instructions Recorded amlodipine 5 mg tablet 5 mg PO DAILY 90 Days #90 tab 03/17/18 atorvastatin 10 mg tablet 10 mg PO DAILY 90 Days #90 tab 03/17/18 hydralazine 10 mg tablet 10 mg PO TID 90 Days #270 tab 03/17/18 metformin 500 mg tablet 500 mg PO BID 90 Days #180 tab 03/17/18 Oxycodone HCl/Acetaminophen 1 tab PO Q8H PRN #30 tablet 03/29/18 [Percocet 7.5/325mg tablet] Allergies Allergy/AdvReac Type Severity Reaction Status Date / Time lisinopril [LISINOPRIL] Allergy Severe Anaphylaxis Verified 04/26/18 12:36 naproxen [From [facility]] Allergy Mild Rash Verified 04/26/18 12:36 [facility] History I have reviewed the patient's past medical history: Yes Medical History: Reports:: Cancer, Diabetes Mellitus Type 2, Gastroesophageal Reflux Disease(GERD), Hyperlipidemia, Hypertension, Seizures Denies:: Diabetes Mellitus Type 1, Internal Pacemaker, MRSA Other Medical History: Reports: Chemotherapy, Other Laterality Cases: Left: Lumpectomy, Bilateral: Carpal Tunnel Release Other Surgeries: Yes: Angioplasty, Cancer Surgery. No: Pacemaker Amputation: No Fractures: No - Social History Smoking Status: Former smoker Tobacco Type: cigarettes #Yrs smoked (if former smoker): 30 Alcohol Intake: never Alcohol Intake Frequency:: other Substance Use Type: denies use Occupational Status: employed Housing: house Household Members: family - Psychiatric History Expresses thoughts of harming self/others: None Suicide Plan Description: No Plan Family Hx:: Cancer ROS Obtained: Yes All systems reviewed & no additional complaints - Cardiovascular Cardiovascular: Reports system reviewed and no additional complaints, except as docu - Respiratory Respiratory: Yes system reviewed and no additional complaints, except as docu Physical Exam - General General appearance: alert, in no apparent distress - Head Head exam: atraumatic - Eye Eye exam: Present: normal appearance - ENT ENT exam: Present: normal exam, normal oropharynx, mucous membranes moist - Neck Neck exam: Present: normal inspection - Chest Chest inspection: Present: normal inspection - Respiratory Respiratory exam: Present: normal lung sounds bilaterally - Cardiovascular Cardiovascular exam: Present: regular rate - Abdominal Exam Abdominal exam: Present: soft - Neurological Exam Neurological exam: Present: alert, oriented X3
[2018-04-26 13:39] LABS: Basophils % 0.9 % (0.1-2.0); Eosinophils # 0.1 K/mm3 (0.0-0.4); Eosinophils % 2.7 % (0.1-12.0); Hematocrit 32.8 % (37.0-47.0); Hemoglobin 9.9 g/dL (12.2-16.2); Lymphocytes # 1.5 K/mm3 (0.7-4.5); Lymphocytes % 41.8 K/mm3 (10-50); Mean Corpuscular HGB Conc 30.1 g/dL (31.8-35.4); Mean Corpuscular Hemoglobin 26.6 pg (27.0-31.2); Mean Corpuscular Volume 88.6 fl (81-99); Monocytes # 0.1 K/mm3 (0.1-1.0); Monocytes % 1.8 % (1.7-9.3); Neutrophils # 1.9 K/mm3 (1.8-7.8); Neutrophils % 52.8 % (37.0-80.0); Platelet Count 179 K/mm3 (142-424); Red Cell Distribution Width 17.4 % (11.5-17.5); White Blood Count 3.7 K/mm3 (4.8-10.8)
[2018-04-26 13:54] LABS: Albumin Level 2.7 gm/dL (3.4-5.0); Albumin/Globulin Ratio 0.5 (1.1-1.8); Anion Gap 17.5 mEq/L (5-15); Bilirubin,Total 1.3 mg/dL (0.2-1.0); Calcium 9.3 mg/dL (8.5-10.1); Globulin 5.7 gm/dl (1.3-3.2); Potassium 4.5 mmoL/L (3.5-5.1); Total Protein,Serum 8.4 gm/dL (6.4-8.2)
[2018-04-26 15:47] LABS: VBG HCO3 22.8 mmol/L (23-30); VBG Oxygen Saturation 69.3 % (50-70); VBG PCO2 43.3 mmol/L (35-51); VBG PH 7.34 mmol/L (7.31-7.41); VBG PO2 41.2 mmol/L (28-40); VBG Total CO2 24.1 mmol/L (23-27)
--- NOTE | 2018-04-26 20:21 | History & Physical Report ---
*Admission Date: 04/26/18 *Chief complaint: Shortness of air and coughing *History of present illness: 57-year-old white female with history of recurrent pneumonia, and history of breast cancer with apparently bony metastases, follows with Dr. Peters in [place] as her oncologist, whose had increasing shortness of air over the past week. Came to the emergency department, found to have diffuse infiltrates, concerning for multilobar pneumonia versus possible lymphangitic tumor spread. Regardless she was found to have a sore throat, mild dehydration, elevated lactic acid and tachycardia. Because of these findings she was given a fluid bolus, and admitted to hospital for broad-spectrum antibiotic therapy, oxygen support and further diagnostic testing. [facility] History I have reviewed the patient's past medical history: Yes Medical History: Reports:: Cancer (Breast cancer, bony metastases. Questionable liver metastases), Diabetes Mellitus Type 2, Gastroesophageal Reflux Disease(GERD), Hyperlipidemia, Hypertension, Seizures Denies:: Diabetes Mellitus Type 1, Internal Pacemaker, MRSA Other Medical History: Reports: Chemotherapy, Other Laterality Cases: Left: Lumpectomy, Bilateral: Carpal Tunnel Release Other Surgeries: Yes: Angioplasty, Cancer Surgery. No: Pacemaker Amputation: No Fractures: No - *Social History Educational Level: Completed College Smoking Status: Former smoker Tobacco Type: cigarettes # Packs/Day (cigarettes): 1 #Yrs smoked (if former smoker): 40 Smoking End Date: 2015 Alcohol Intake: never Alcohol Intake Frequency:: other Substance Use Type: denies use Occupational Status: employed Housing: house Household Members: spouse, family - Psychiatric History Expresses thoughts of harming self/others: None Suicide Plan Description: No Plan *Family Hx:: Cancer, Coronary Artery Disease, Diabetes, Heart Attack, Hyperlipidemia, Hypertension Review of Systems - Review of Systems Review of systems:: pertinent systems reviewed and negative unless documented below - Constitutional Reports anorexia, Reports body ache(s), Reports chills, Reports headache(s), Reports lack of energy, Reports malaise, Denies increased appetite - Eyes Denies blurry vision, Denies change in vision, Denies double vision - ENT Reports dry mouth, Reports difficulty swallowing, Reports pain with swallowing, Denies abnormal hearing, Denies bleeding gums - *Cardiovascular Reports shortness of breath, Reports shortness of breath with activity, Denies chest pain, Denies chest pain at rest - *Respiratory Reports chest congestion, Reports cough, Reports shortness of breath - *Gastrointestinal Denies abdominal pain, Denies belching, Denies bloating - *Musculoskeletal Denies abnormal walking, Denies decreased muscle mass, Denies limited joint movement - Integumentary/Breasts Reports dry skin Meds Home Medications Medication Instructions Recorded Confirmed Type Aspirin [Low Dose Aspirin EC] 81 mg PO DAILY 03/16/18 04/26/18 History Letrozole 2.5 mg PO DAILY 03/21/18 04/26/18 History glipiZIDE [Glipizide ER] 5 mg PO DAILY 03/31/18 04/26/18 History Omeprazole [Omeprazole 20mg 20 mg PO DAILY 04/01/18 04/26/18 History Capsule] Minocycline HCl 100 mg PO BID 04/03/18 04/26/18 History calcium 600 mg-D3 800 unit-mag11 1 tab PO QHS 04/11/18 04/26/18 History 50 yq-zjdt-gibtvc-jimmy-s.borat tablet insulin glargine (U-100) 100 15 unit SUB-Q DAILY ml 04/11/18 04/26/18 History unit/mL (3 mL) subcutaneous pen levetiracetam 750 mg tablet 1,500 mg PO Q12H 04/11/18 04/26/18 History magnesium oxide 400 mg capsule 400 mg PO DAILY cap 04/11/18 04/26/18 History meloxicam 15 mg tablet 15 mg PO DAILY tab 04/11/18 04/26/18 History Allergies Allergy/AdvReac Type Severity Reaction Status Date / Time lisinopril [LISINOPRIL] Allergy Severe Anaphylaxis Verified 04/26/18 12:36 naproxen [From ALEVE] Allergy Mild Rash Verified 04/26/18 12:36 Exam Vital signs and Labs for Last 24 Hours: Temp Pulse Resp BP Pulse Ox 98.0 F 97 H 18 144/79 96 04/26/18 16:34 04/26/18 16:34 04/26/18 16:34 04/26/18 16:34 04/26/18 16:34 Laboratory Results - last 24 hr 04/26/18 12:40: Group A Strep Rapid Negative 04/26/18 13:30: WBC 3.7 L, RBC 3.70 L, Hgb 9.9 L, Hct 32.8 L, MCV 88.6, MCH 26.6 L, MCHC 30.1 L, RDW 17.4, Plt Count 179, MPV 7.0 L, Neut % (Auto) 52.8, Lymph % (Auto) 41.8, [place] % (Auto) 1.8, Eos % (Auto) 2.7, Baso % (Auto) 0.9, Neut # (Auto) 1.9, Lymph # (Auto) 1.5, [place] # (Auto) 0.1, Eos # (Auto) 0.1, Baso # (Auto) 0.0 04/26/18 13:30: Sodium 136, Potassium 4.5, Chloride 99, Carbon Dioxide 24, Anion Gap 17.5 H, BUN 14, Creatinine 1.24 H, Estimated Creat Clear 73, Estimated GFR 44 L, Est GFR ( Amer) 54 L, Glucose 145 H, Calcium 9.3, Total Bilirubin 1.3 H, AST 203 H, ALT 77, Alkaline Phosphatase 535 H, Total Protein 8.4 H, Albumin 2.7 L, Globulin 5.7 H, Albumin/Globulin Ratio 0.5 L 04/26/18 13:30: Lactic Acid 5.2 H 04/26/18 13:30: Influenza Type A Ag Negative, Influenza Type B Ag Negative 04/26/18 15:45: VBG pH 7.34, VBG pCO2 43.3, VBG pO2 41.2 H, VBG HCO3 22.8 L, VBG Total CO2 24.1, VBG O2 Saturation 69.3, VBG Base Excess -3.0 L I & O for Last 24 hours: Intake & Output 04/24/18 04/25/18 04/26/18 04/27/18 11:59 11:59 11:59 11:59 Intake Total 250 / 250 Balance 250 / 250 Weight 209 lb 8 oz Narrative: Patient appears chronically ill, dry/sallow skin, appears older than stated age. Lungs are actually surprisingly clear given her abnormal chest x-ray with somewhat depressed air movement in the bases, heart rate regular. Abdomen soft. No abdominal masses but her obesity limits her exam. Able to move all of her extremities. Patient is alert, oriented 3. Cranial nerves are intact. H&P: Result - Labs Labs: Short CBC 04/26/18 Range/Units 13:30 WBC 3.7 L (4.8-10.8) K/mm3 Hgb 9.9 L (12.2-16.2) g/dL Hct 32.8 L (37.0-47.0) % Plt Count 179 (142-424) K/mm3 BMP 04/26/18 13:30 Sodium 136 Potassium 4.5 Chloride 99 Carbon Dioxide 24 BUN 14 Creatinine 1.24 H Glucose 145 H Calcium 9.3 Liver Function 04/26/18 Range/Units 13:30 Total Bilirubin 1.3 H (0.2-1.0) mg/dL AST 203 H (15-37) U/L ALT 77 (12-78) U/L Alkaline Phosphatase 535 H (46-116) U/L Albumin 2.7 L (3.4-5.0) gm/dL Assessment and Plan (1) Breast cancer Current visit: Yes Status: Acute Qualifiers: Breast location: unspecified site of breast Estrogen receptor status: unspecified Patient sex: female Laterality: unspecified laterality Qualified Code(s): C50.919 - Malignant neoplasm of unspecified site of unspecified female breast Category: Medical Code(s): C50.919 - Malignant neoplasm of unspecified site of unspecified female breast Questionable stage of breast cancer. Certainly concerning for increased spread with metastases. Would be helpful to have records from oncology. (2) Pneumonia Current visit: Yes Status: Acute Qualifiers: Pneumonia type: due to unspecified organism Laterality: unspecified laterality Lung location: unspecified part of lung Qualified Code(s): J18.9 - Pneumonia, unspecified organism Category: Medical Code(s): J18.9 - Pneumonia, unspecified organism Concerning multilobar infiltrate. Check viral PCR. Agree with broad-spectrum antibiotics and oxygen support if needed. (3) Sepsis Current visit: Yes Status: Acute Qualifiers: Sepsis type: sepsis due to unspecified organism Qualified Code(s): A41.9 - Sepsis, unspecified organism Category: Medical Code(s): A41.9 - Sepsis, unspecified organism Patient meets sepsis criteria. Broad-spectrum metabolic started. Repeat lactic acid level. No evidence of hypoperfusion or hypotension at this point. We will withhold major fluid bolus (4) Diabetes mellitus Current visit: No Status: Acute Qualifiers: Diabetes mellitus type: type 2 Diabetes mellitus terminal make up operator insulin use: with snf use Diabetes mellitus complication status: with unspecified complications Qualified Code(s): E11.8 - Type 2 diabetes mellitus with unspecified complications; Z79.4 - USP (current) use of insulin Category: Medical Code(s): E11.9 - Type 2 diabetes mellitus without complications Glipizide at this point. Monitor sugar carefully
[2018-04-27 06:01] LABS: Basophils % 0.8 % (0.1-2.0); Eosinophils # 0.1 K/mm3 (0.0-0.4); Eosinophils % 3.2 % (0.1-12.0); Lymphocytes % 39.4 K/mm3 (10-50); Mean Corpuscular HGB Conc 35.3 g/dL (31.8-35.4); Mean Corpuscular Hemoglobin 31.1 pg (27.0-31.2); Mean Corpuscular Volume 88.2 fl (81-99); Mean Platelet Volume 7.4 fl (7.4-10.4); Monocytes # 0.1 K/mm3 (0.1-1.0); Monocytes % 2.5 % (1.7-9.3); Neutrophils # 1.4 K/mm3 (1.8-7.8); Neutrophils % 54.1 % (37.0-80.0); Platelet Count 108 K/mm3 (142-424); Red Blood Count 2.71 M/mm3 (4.20-5.40); Red Cell Distribution Width 17.5 % (11.5-17.5); White Blood Count 2.5 K/mm3 (4.8-10.8)
[2018-04-27 06:06] LABS: Hematocrit 23.9 % (37.0-47.0)
[2018-04-27 06:19] LABS: Albumin Level 2.2 gm/dL (3.4-5.0); Albumin/Globulin Ratio 0.4 (1.1-1.8); Anion Gap 13.1 mEq/L (5-15); Bilirubin,Total 1.3 mg/dL (0.2-1.0); Calcium 8.4 mg/dL (8.5-10.1); Globulin 4.9 gm/dl (1.3-3.2); Potassium 4.1 mmoL/L (3.5-5.1); Total Protein,Serum 7.1 gm/dL (6.4-8.2)
[2018-04-27 06:31] LABS: Hemoglobin 8.4 g/dL (12.2-16.2)
--- NOTE | 2018-04-27 09:55 | Progress Note ---
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 - no fever so far today Exam Vital signs and Labs for Last 24 Hours: Temp Pulse Resp BP Pulse Ox 98.3 F 102 H 20 132/74 94 L 04/27/18 08:00 04/27/18 08:00 04/27/18 08:00 04/27/18 08:00 04/27/18 08:00 Laboratory Results - last 24 hr 04/26/18 12:40: Group A Strep Rapid Negative 04/26/18 13:30: WBC 3.7 L, RBC 3.70 L, Hgb 9.9 L, Hct 32.8 L, MCV 88.6, MCH 26.6 L, MCHC 30.1 L, RDW 17.4, Plt Count 179, MPV 7.0 L, Neut % (Auto) 52.8, Lymph % (Auto) 41.8, [place] % (Auto) 1.8, Eos % (Auto) 2.7, Baso % (Auto) 0.9, Neut # (Auto) 1.9, Lymph # (Auto) 1.5, [place] # (Auto) 0.1, Eos # (Auto) 0.1, Baso # (Auto) 0.0 04/26/18 13:30: Sodium 136, Potassium 4.5, Chloride 99, Carbon Dioxide 24, Anion Gap 17.5 H, BUN 14, Creatinine 1.24 H, Estimated Creat Clear 73, Estimated GFR 44 L, Est GFR ( Amer) 54 L, Glucose 145 H, Calcium 9.3, Total Bilirubin 1.3 H, AST 203 H, ALT 77, Alkaline Phosphatase 535 H, Total Protein 8.4 H, Albumin 2.7 L, Globulin 5.7 H, Albumin/Globulin Ratio 0.5 L 04/26/18 13:30: Lactic Acid 5.2 H 04/26/18 13:30: Influenza Type A Ag Negative, Influenza Type B Ag Negative 04/26/18 15:45: VBG pH 7.34, VBG pCO2 43.3, VBG pO2 41.2 H, VBG HCO3 22.8 L, VBG Total CO2 24.1, VBG O2 Saturation 69.3, VBG Base Excess -3.0 L 04/26/18 20:34: Lactic Acid Fup @ 4Hr 3.4 H 04/26/18 23:00: Lactic Acid Fup @ 2Hr 2.0 04/27/18 05:45: WBC 2.5 L D, RBC 2.71 L D, Hgb 8.4 L D, Hct 23.9 L*, MCV 88.2, MCH 31.1, MCHC 35.3, RDW 17.5, Plt Count 108 L D, MPV 7.4, Neut % (Auto) 54.1, Lymph % (Auto) 39.4, [place] % (Auto) 2.5, Eos % (Auto) 3.2, Baso % (Auto) 0.8, Neut # (Auto) 1.4 L, Lymph # (Auto) 1.0, [place] # (Auto) 0.1, Eos # (Auto) 0.1, Baso # (Auto) 0.0 04/27/18 05:45: Sodium 141, Potassium 4.1, Chloride 105, Carbon Dioxide 27, Anion Gap 13.1, BUN 9 D, Creatinine 1.00, Estimated Creat Clear 92, Estimated GFR 57 L, Est GFR ( Amer) 69 D, Glucose 104 D, Calcium 8.4 L, Total Bilirubin 1.3 H, AST 153 H, ALT 61, Alkaline Phosphatase 421 H, Total Protein 7.1, Albumin 2.2 L D, Globulin 4.9 H, Albumin/Globulin Ratio 0.4 L 04/27/18 07:07: POC Glucose 100 I & O for Last 24 hours: Intake & Output 04/24/18 04/25/18 04/26/18 04/27/18 11:59 11:59 11:59 11:59 Intake Total 1080 / 1080 Balance 1080 / 1080 Weight 210 lb 9 oz Microbiology Reports for the Last 24 Hours: Microbiology 04/26/18 12:40 Throat Group A Streptococcus Screen ([facility]ANCA) - Final Negative for Group A Streptococcus. - Constitutional no acute distress - *Routine HEENT Exam Head: Present: normocephalic Eye: Present: EOMI, PERRL ENT: Present: mucous membranes dry - *Routine Neck Exam Present: supple - *Routine Respiratory Exam Present: rhonchi - *Routine Cardiovascular Exam Present: RRR, murmur, S4 - *Routine Abdominal Exam Present: soft - *Routine Extremities Exam Absent: calf tenderness - *Routine Skin Exam Present: intact - *Routine Neurological Exam Present: alert, oriented X3, CN II-XII intact - Routine Psychiatric Exam Present: normal affect Assessment and Plan (1) Breast cancer Current visit: Yes Status: Acute Qualifiers: Breast location: unspecified site of breast Estrogen receptor status: unspecified Patient sex: female Laterality: unspecified laterality Qualified Code(s): C50.919 - Malignant neoplasm of unspecified site of unspecified female breast Category: Medical Code(s): C50.919 - Malignant neoplasm of unspecified site of unspecified female breast (2) Pneumonia Current visit: Yes Status: Acute Qualifiers: Pneumonia type: due to unspecified organism Laterality: unspecified laterality Lung location: unspecified part of lung Qualified Code(s): J18.9 - Pneumonia, unspecified organism Category: Medical Code(s): J18.9 - Pneumonia, unspecified organism (3) Sepsis Current visit: Yes Status: Acute Qualifiers: Sepsis type: sepsis due to unspecified organism Qualified Code(s): A41.9 - Sepsis, unspecified organism Category: Medical Code(s): A41.9 - Sepsis, unspecified organism (4) Diabetes mellitus Current visit: No Status: Acute Qualifiers: Diabetes mellitus type: type 2 Diabetes mellitus skilled nursing insulin use: with skilled nursing use Diabetes mellitus complication status: with unspecified complications Qualified Code(s): E11.8 - Type 2 diabetes mellitus with unspecified complications; Z79.4 - residential (current) use of insulin Category: Medical Code(s): E11.9 - Type 2 diabetes mellitus without complications
--- NOTE | 2018-04-27 11:59 | Pharmacy Consult Notes ---
- Pharmacy Consult Date: 04/27/18 Time: 11:58 Referring provider: DR. MARIE Reason for Consult:: VANCOMYCIN DOSING Allergies and ADEs:: Allergies Allergy/AdvReac Type Severity Reaction Status Date / Time lisinopril [LISINOPRIL] Allergy Severe Anaphylaxis Verified 04/26/18 12:36 naproxen [From ALEVE] Allergy Mild Rash Verified 04/26/18 12:36 Home Medications:: Home Medications Medication Instructions Recorded Confirmed Type Aspirin [Low Dose Aspirin EC] 81 mg PO DAILY 03/16/18 04/26/18 History Letrozole 2.5 mg PO DAILY 03/21/18 04/26/18 History glipiZIDE [Glipizide ER] 5 mg PO DAILY 03/31/18 04/26/18 History Omeprazole [Omeprazole 20mg 20 mg PO DAILY 04/01/18 04/26/18 History Capsule] calcium 600 mg-D3 800 unit-mag11 1 tab PO QHS 04/11/18 04/26/18 History 50 we-opwh-frmloz-jimmy-s.borat tablet insulin glargine (U-100) 100 15 unit SUB-Q DAILY ml 04/11/18 04/26/18 History unit/mL (3 mL) subcutaneous pen levetiracetam 750 mg tablet 1,500 mg PO Q12H 04/11/18 04/26/18 History magnesium oxide 400 mg capsule 400 mg PO DAILY cap 04/11/18 04/26/18 History Height: 1.68 m Weight: 95.51 kg Laboratory Results:: Laboratory Results - last 24 hr 04/26/18 12:40: Group A Strep Rapid Negative 04/26/18 13:30: WBC 3.7 L, RBC 3.70 L, Hgb 9.9 L, Hct 32.8 L, MCV 88.6, MCH 26.6 L, MCHC 30.1 L, RDW 17.4, Plt Count 179, MPV 7.0 L, Neut % (Auto) 52.8, Lymph % (Auto) 41.8, [place] % (Auto) 1.8, Eos % (Auto) 2.7, Baso % (Auto) 0.9, Neut # (Auto) 1.9, Lymph # (Auto) 1.5, [place] # (Auto) 0.1, Eos # (Auto) 0.1, Baso # (Auto) 0.0 04/26/18 13:30: Sodium 136, Potassium 4.5, Chloride 99, Carbon Dioxide 24, Anion Gap 17.5 H, BUN 14, Creatinine 1.24 H, Estimated Creat Clear 73, Estimated GFR 44 L, Est GFR ( Amer) 54 L, Glucose 145 H, Calcium 9.3, Total Bilirubin 1.3 H, AST 203 H, ALT 77, Alkaline Phosphatase 535 H, Total Protein 8.4 H, Albumin 2.7 L, Globulin 5.7 H, Albumin/Globulin Ratio 0.5 L 04/26/18 13:30: Lactic Acid 5.2 H 04/26/18 13:30: Influenza Type A Ag Negative, Influenza Type B Ag Negative 04/26/18 15:45: VBG pH 7.34, VBG pCO2 43.3, VBG pO2 41.2 H, VBG HCO3 22.8 L, VBG Total CO2 24.1, VBG O2 Saturation 69.3, VBG Base Excess -3.0 L 04/26/18 20:34: Lactic Acid Fup @ 4Hr 3.4 H 04/26/18 23:00: Lactic Acid Fup @ 2Hr 2.0 04/27/18 05:45: WBC 2.5 L D, RBC 2.71 L D, Hgb 8.4 L D, Hct 23.9 L*, MCV 88.2, MCH 31.1, MCHC 35.3, RDW 17.5, Plt Count 108 L D, MPV 7.4, Neut % (Auto) 54.1, Lymph % (Auto) 39.4, [place] % (Auto) 2.5, Eos % (Auto) 3.2, Baso % (Auto) 0.8, Neut # (Auto) 1.4 L, Lymph # (Auto) 1.0, [place] # (Auto) 0.1, Eos # (Auto) 0.1, Baso # (Auto) 0.0 04/27/18 05:45: Sodium 141, Potassium 4.1, Chloride 105, Carbon Dioxide 27, Anion Gap 13.1, BUN 9 D, Creatinine 1.00, Estimated Creat Clear 92, Estimated GFR 57 L, Est GFR ( Amer) 69 D, Glucose 104 D, Calcium 8.4 L, Total Bilirubin 1.3 H, AST 153 H, ALT 61, Alkaline Phosphatase 421 H, Total Protein 7.1, Albumin 2.2 L D, Globulin 4.9 H, Albumin/Globulin Ratio 0.4 L 04/27/18 07:07: POC Glucose 100 Medical History: Reports:: Cancer (Breast cancer, bony metastases. Questionable liver metastases), Diabetes Mellitus Type 2, Gastroesophageal Reflux Disease(GERD), Hyperlipidemia, Hypertension, Seizures Denies:: Diabetes Mellitus Type 1, Internal Pacemaker, MRSA Assessment and Plan (1) Breast cancer Current visit: Yes Status: Acute Qualifiers: Breast location: unspecified site of breast Estrogen receptor status: unspecified Patient sex: female Laterality: unspecified laterality Qualified Code(s): C50.919 - Malignant neoplasm of unspecified site of unspecified female breast Category: Medical Code(s): C50.919 - Malignant neoplasm of unspecified site of unspecified female breast (2) Pneumonia Current visit: Yes Status: Acute Qualifiers: Pneumonia type: due to unspecified organism Laterality: unspecified laterality Lung location: unspecified part of lung Qualified Code(s): J18.9 - Pneumonia, unspecified organism Category: Medical Code(s): J18.9 - Pneumonia, unspecified organism (3) Sepsis Current visit: Yes Status: Acute Qualifiers: Sepsis type: sepsis due to unspecified organism Qualified Code(s): A41.9 - Sepsis, unspecified organism Category: Medical Code(s): A41.9 - Sepsis, unspecified organism (4) Diabetes mellitus Current visit: No Status: Acute Qualifiers: Diabetes mellitus type: type 2 Diabetes mellitus terminal operator insulin use: with terminal operator use Diabetes mellitus complication status: with unspecified complications Qualified Code(s): E11.8 - Type 2 diabetes mellitus with unspecified complications; Z79.4 - custodial (current) use of insulin Category: Medical Code(s): E11.9 - Type 2 diabetes mellitus without complications - Assessment and plan all Dx Assessment and Plan for all problems:: BASED ON PATIENT'S FACTORS, RECOMMEND STARTING WITH VANCOMYCIN 2000 MG Q24H AT THIS TIME. PHARMACY WILL FOLLOW DAILY AND ADJUST APPROPRIATE. KATHERINE ROLDAN, JU[place]ARL[place]
--- NOTE | 2018-04-27 14:03 | Pharmacy Consult Notes ---
[facility] VTE Monitoring - Patient Demographics Admission date: 04/27/18 Report Date: 04/27/18 Time: 14:02 Allergies/Adverse Reactions: Patient Allergies lisinopril [LISINOPRIL] Allergy (Severe, Verified 04/26/18 12:36) Anaphylaxis naproxen [From ALEVE] Allergy (Mild, Verified 04/26/18 12:36) Rash Height: 1.68 m Weight: 95.51 kg Patient Problems: Current Active Problems Sepsis (Acute) Breast cancer (Acute) Pneumonia (Acute) - VTE Risk Labs: VTE Related Lab Results Hgb 8.4 g/dL (12.2-16.2) L D 04/27/18 05:45 Hct 23.9 % (37.0-47.0) L* 04/27/18 05:45 Plt Count 108 K/mm3 (142-424) L D 04/27/18 05:45 BUN 9 mg/dL (7-18) D 04/27/18 05:45 Creatinine 1.00 mg/dL (0.55-1.02) 04/27/18 05:45 Estimated Creat Clear 92 mL/min (0-300) 04/27/18 05:45 Was VTE Risk Assessment Performed: Yes VTE Score: 6 VTE Risk Level: Moderate Risk - Prophylaxis Location of Applied Device: Bilateral Lower Extremeties (MONTSERRAT HOSE ORDERED)
[2018-04-27 18:20] LABS: Coronavirus 229E Not Detected (NotDetected); Coronavirus NL63 Not Detected (NotDetected); Coronavirus OC43 Not Detected (NotDetected); Coronovirus HKU1,PCR Not Detected (NotDetected)
--- NOTE | 2018-04-28 13:10 | Progress Note ---
Internal Medicine - PN: Subj *Date: 04/28/18 *Time: 13:08 Interval history: doing better with less sob and cough - reviewed ct with pt and will try to contact dr payne Exam Vital signs and Labs for Last 24 Hours: Temp Pulse Resp BP Pulse Ox 98.5 F 89 18 136/78 95 04/28/18 11:21 04/28/18 11:21 04/28/18 11:21 04/28/18 11:21 04/28/18 11:21 Laboratory Results - last 24 hr 04/27/18 18:12: Chlamy pneumoniae PCR Not detected, Adenovirus (PCR) Not detected, B.parapertussis DNA PCR Not detected, Coronavirus OC43 (PCR) Not detected, Coronavirus HKU1 (PCR) Not detected, Coronavirus 229E (PCR) Not detected, Coronavirus NL63 (PCR) Not detected, Human Metapneumovir PCR Not detected, Influenza A (H1) PCR Not detected, Influ A (H1N1/09) PCR Not detected , Influenza A (H3) PCR Not detected, Influenza Type A (PCR) Not detected, Influenza Type B (PCR) Not detected, M. pneumoniae (PCR) Not detected, Parainfluenza 1 (PCR) Not detected, Parainfluenza 2 (PCR) Not detected, Parainfluenza 3 (PCR) Not detected, Parainfluenza 4 (PCR) Not detected, RSV (PCR ) Not detected, Entero/Rhino (PCR) Not detected I & O for Last 24 hours: Intake & Output 04/26/18 04/27/18 04/28/18 04/29/18 11:59 11:59 11:59 11:59 Intake Total 1080 / 1080 1220 / 1220 Output Total 960 / 960 Balance 1080 / 1080 260 / 260 Weight 210 lb 9 oz 210 lb 3 oz - Constitutional no acute distress - *Routine HEENT Exam Head: Present: normocephalic Eye: Present: EOMI, PERRL ENT: Present: mucous membranes dry - *Routine Neck Exam Present: supple - *Routine Respiratory Exam Present: CTA bilaterally - *Routine Cardiovascular Exam Present: RRR, murmur. Absent: rubs - *Routine Abdominal Exam Present: soft - *Routine Extremities Exam Absent: calf tenderness - Routine Back/Spine/Pelvis Exam Back/Spine: Present: vertebral tenderness - *Routine Skin Exam Present: intact - *Routine Neurological Exam Present: alert, oriented X3, CN II-XII intact - Routine Psychiatric Exam Present: normal affect Assessment and Plan (1) Breast cancer Current visit: Yes Status: Acute Qualifiers: Breast location: unspecified site of breast Estrogen receptor status: unspecified Patient sex: female Laterality: unspecified laterality Qualified Code(s): C50.919 - Malignant neoplasm of unspecified site of unspecified female breast Category: Medical Code(s): C50.919 - Malignant neoplasm of unspecified site of unspecified female breast (2) Pneumonia Current visit: Yes Status: Acute Qualifiers: Pneumonia type: due to unspecified organism Laterality: unspecified laterality Lung location: unspecified part of lung Qualified Code(s): J18.9 - Pneumonia, unspecified organism Category: Medical Code(s): J18.9 - Pneumonia, unspecified organism (3) Sepsis Current visit: Yes Status: Acute Qualifiers: Sepsis type: sepsis due to unspecified organism Qualified Code(s): A41.9 - Sepsis, unspecified organism Category: Medical Code(s): A41.9 - Sepsis, unspecified organism (4) Diabetes mellitus Current visit: No Status: Acute Qualifiers: Diabetes mellitus type: type 2 Diabetes mellitus assisted insulin use: with assisted use Diabetes mellitus complication status: with unspecified complications Qualified Code(s): E11.8 - Type 2 diabetes mellitus with unspecified complications; Z79.4 - marine oil terminal superintendent (current) use of insulin Category: Medical Code(s): E11.9 - Type 2 diabetes mellitus without complications
[2018-04-28 13:39] LABS: Basophils % 1.1 % (0.1-2.0); Eosinophils # 0.1 K/mm3 (0.0-0.4); Hematocrit 29.3 % (37.0-47.0); Hemoglobin 8.7 g/dL (12.2-16.2); Lymphocytes # 1.3 K/mm3 (0.7-4.5); Lymphocytes % 50.5 K/mm3 (10-50); Mean Corpuscular HGB Conc 29.8 g/dL (31.8-35.4); Mean Corpuscular Hemoglobin 26.5 pg (27.0-31.2); Mean Corpuscular Volume 88.7 fl (81-99); Monocytes # 0.1 K/mm3 (0.1-1.0); Monocytes % 3.3 % (1.7-9.3); Neutrophils # 1.1 K/mm3 (1.8-7.8); Platelet Count 110 K/mm3 (142-424); White Blood Count 2.6 K/mm3 (4.8-10.8)
[2018-04-28 13:45] LABS: Anion Gap 16.2 mEq/L (5-15); Calcium 8.9 mg/dL (8.5-10.1); Potassium 4.2 mmoL/L (3.5-5.1)
[2018-04-28 16:55] LABS: Eosinophils % 3 % (0-3); Lymphocytes % 42 % (10-50); Monocytes % 4 % (2-9); Neutrophils % 51 % (42-76); Nucleated Red Blood Cells 3; RBC Morphology Normal; Total Cells Counted 100
--- NOTE | 2018-04-29 08:11 | Progress Note ---
Internal Medicine - PN: Subj *Date: 04/29/18 *Time: 08:11 Exam Vital signs and Labs for Last 24 Hours: Temp Pulse Resp BP Pulse Ox 98.0 F 110 H 16 140/96 95 04/29/18 07:36 04/29/18 07:36 04/29/18 07:36 04/29/18 07:36 04/29/18 07:36 Laboratory Results - last 24 hr 04/28/18 13:25: WBC 2.6 L, RBC 3.30 L, Hgb 8.7 L, Hct 29.3 L, MCV 88.7, MCH 26.5 L, MCHC 29.8 L, RDW 18.0 H, Plt Count 110 L, MPV 8.0, Neut % (Auto) 42.0, Lymph % (Auto) 50.5 H, [place] % (Auto) 3.3, Eos % (Auto) 3.0, Baso % (Auto) 1.1, Neut # (Auto) 1.1 L, Lymph # (Auto) 1.3, [place] # (Auto) 0.1, Eos # (Auto) 0.1, Baso # (Auto) 0.0, Total Counted 100, Neutrophils % (Manual) 51, Lymphocytes % ( Manual) 42, Monocytes % (Manual) 4, Eosinophils % (Manual) 3, Nucleated RBCs 3, Platelet Estimate Slight decrease, RBC Morphology Normal 04/28/18 13:25: Sodium 139, Potassium 4.2, Chloride 104, Carbon Dioxide 23, Anion Gap 16.2 H, BUN 11, Creatinine 1.23 H D, Estimated Creat Clear 75, Estimated GFR 45 L, Est GFR ( Amer) 54 L D, Glucose 142 H, Calcium 8.9 I & O for Last 24 hours: Intake & Output 04/26/18 04/27/18 04/28/18 04/29/18 23:59 23:59 23:59 23:59 Intake Total 370 / 370 1440 / 1440 1780 / 1780 531 / 531 Output Total 300 / 300 660 / 660 Balance 370 / 370 1140 / 1140 1120 / 1120 531 / 531 Weight 95.028 kg 95.51 kg 95.339 kg 95.028 kg Microbiology Reports for the Last 24 Hours: Microbiology 04/26/18 13:30 Blood Blood Culture - Preliminary NO GROWTH AFTER 48 HOURS 04/26/18 13:30 Blood Blood Culture - Preliminary NO GROWTH AFTER 48 HOURS Assessment and Plan (1) Breast cancer Current visit: Yes Status: Acute Qualifiers: Breast location: unspecified site of breast Estrogen receptor status: unspecified Patient sex: female Laterality: unspecified laterality Qualified Code(s): C50.919 - Malignant neoplasm of unspecified site of unspecified female breast Category: Medical Code(s): C50.919 - Malignant neoplasm of unspecified site of unspecified female breast (2) Pneumonia Current visit: Yes Status: Acute Qualifiers: Pneumonia type: due to unspecified organism Laterality: unspecified laterality Lung location: unspecified part of lung Qualified Code(s): J18.9 - Pneumonia, unspecified organism Category: Medical Code(s): J18.9 - Pneumonia, unspecified organism (3) Sepsis Current visit: Yes Status: Acute Qualifiers: Sepsis type: sepsis due to unspecified organism Qualified Code(s): A41.9 - Sepsis, unspecified organism Category: Medical Code(s): A41.9 - Sepsis, unspecified organism (4) Diabetes mellitus Current visit: No Status: Acute Qualifiers: Diabetes mellitus type: type 2 Diabetes mellitus custodial insulin use: with custodial use Diabetes mellitus complication status: with unspecified complications Qualified Code(s): E11.8 - Type 2 diabetes mellitus with unspecified complications; Z79.4 - long term (current) use of insulin Category: Medical Code(s): E11.9 - Type 2 diabetes mellitus without complications The patient's infection will respond to the chosen ABx?: Yes Is the patient receiving the right drug, dose, and route?: Yes Could a more targeted ABx be ordered?: No
--- NOTE | 2018-04-29 08:31 | Discharge Summary ---
General - General Admission date:: 04/26/18 Discharge date: 04/29/18 HPI HPI: 57-year-old white female with history of recurrent pneumonia, and history of breast cancer with apparently bony metastases, follows with Dr. Peters in [place] as her oncologist, whose had increasing shortness of air over the past week. Came to the emergency department, found to have diffuse infiltrates, concerning for multilobar pneumonia versus possible lymphangitic tumor spread. Regardless she was found to have a sore throat, mild dehydration, elevated lactic acid and tachycardia. Because of these findings she was given a fluid bolus, and admitted to hospital for broad-spectrum antibiotic therapy, oxygen support and further diagnostic testing. Hospital Course Hospital Course: ct x ray:IMPRESSION: .... Diffuse interstitial prominence likely reflects diffuse \ interstitial infiltrates. however if there is a history of breast cancer lymphangitic spread could yield a somewhat similar appearance) Additional density and airspace disease at posterior right lung base.. Likely reflecting atelectasis with possible infiltrate Prominent atelectasis & possible wispy infiltrate posterior RLL just above diaphragm Small Bilateral pleural effusions developed Patchy sclerotic appearance to the spine and ribs-very suspect for metastatic disease Also question scattered nodular densities seen at the lungs bilaterally. ct scan: FINDINGS: The lung perdomo are well expanded. Mild interstitial prominence is seen in the upper lobes and there are coarse bronchovascular markings in right lower lobe possibly due to lymphangitic metastatic spread and/or post inflammatory scarring from previous pneumonia. There is a moderate size left pleural effusion with fluid layering under left lung up to level of aortic arch. There is no right-sided pleural effusion. normal. There Is no abnormal superior mediastinal or hilar lymphadenopathy. Bone windows show for advanced diffuse primarily blastic metastatic disease involving the entire bony thorax in both humeral heads. The thoracic spine is markedly and diffusely involved with blastic metastasis though no compression fracture is seen. Scans of the upper abdomen show both adrenal glands are normal. However there are multiple hypodense lesions in the visualized portions of the liver worrisome for metastatic disease. IMPRESSION: Far advanced diffuse metastatic disease involving the bony thorax primarily blastic in appearance along with moderate size left pleural effusion and possible mild lymphangitic metastatic spread to the pulmonary interstitium. Follow-up with Dr. Davila May 12 family will call for appointment time. We will discharge home on Zithromax patient have lab work on Saturday follow-up with Dr. Mandujano for possible port placement. Follow-up next week in the office with Dr. Marlow. Objective Vital signs: Temp Pulse Resp BP Pulse Ox 98.0 F 110 H 16 140/96 95 04/29/18 07:36 04/29/18 07:36 04/29/18 07:36 04/29/18 07:36 04/29/18 07:36 no acute distress - *Routine HEENT Exam Head: Present: normocephalic Eye: Present: PERRL ENT: Present: mucous membranes moist - *Routine Neck Exam Present: full ROM - *Routine Respiratory Exam Present: diminished air movement - *Routine Cardiovascular Exam Present: RRR - *Routine Abdominal Exam Present: soft, normoactive bowel sounds - *Routine Extremities Exam Present: full ROM - *Routine Skin Exam Present: intact - *Routine Neurological Exam Present: alert, oriented X3, CN II-XII intact - Routine Psychiatric Exam Present: normal affect, normal thought process Results Labs on day of discharge: Labs from last 24 hours 04/28/18 04/28/18 13:25 13:25 WBC 2.6 L RBC 3.30 L Hgb 8.7 L Hct 29.3 L MCV 88.7 MCH 26.5 L MCHC 29.8 L RDW 18.0 H Plt Count 110 L MPV 8.0 Neut % (Auto) 42.0 Lymph % (Auto) 50.5 H [place] % (Auto) 3.3 Eos % (Auto) 3.0 Baso % (Auto) 1.1 Neut # (Auto) 1.1 L Lymph # (Auto) 1.3 [place] # (Auto) 0.1 Eos # (Auto) 0.1 Baso # (Auto) 0.0 Total Counted 100 Neutrophils % (Manual) 51 Lymphocytes % (Manual) 42 Monocytes % (Manual) 4 Eosinophils % (Manual) 3 Nucleated RBCs 3 Platelet Estimate Slight decrease RBC Morphology Normal Sodium 139 Potassium 4.2 Chloride 104 Carbon Dioxide 23 Anion Gap 16.2 H BUN 11 Creatinine 1.23 H D Estimated Creat Clear 75 Estimated GFR 45 L Est GFR ( Amer) 54 L D Glucose 142 H Calcium 8.9 Preliminary micro results at discharge 04/26/18 13:30 Blood Culture - Preliminary Blood NO GROWTH AFTER 48 HOURS 04/26/18 13:30 Blood Culture - Preliminary Blood NO GROWTH AFTER 48 HOURS - Additional Comments Rounded with Dr. Marlow all orders per Ele DS: Diagnosis - Discharge Diagnosis (1) Breast cancer Status: Acute (2) Pneumonia Status: Acute (3) Sepsis Status: Acute (4) Diabetes mellitus Status: Acute Discharge Plan - Patient Discharge Instructions ACTIVITY: Continue current activity DIET: continue same diet Patient Instructions: Pneumonia-Adult - Follow up Plan Follow up with: Juan Marlow MD [Primary Care Provider] - 1 week Disposition: Home, Self-Snf Medications: Home Medications Medication Instructions Recorded Confirmed Type Aspirin [Low Dose Aspirin EC] 81 mg PO DAILY 03/16/18 04/26/18 History Letrozole 2.5 mg PO DAILY 03/21/18 04/26/18 History glipiZIDE [Glipizide ER] 5 mg PO DAILY 03/31/18 04/26/18 History Omeprazole [Omeprazole 20mg 20 mg PO DAILY 04/01/18 04/26/18 History Capsule] calcium 600 mg-D3 800 unit-mag11 1 tab PO QHS 04/11/18 04/26/18 History 50 if-fzhh-xrxquh-jimmy-s.borat tablet insulin glargine (U-100) 100 15 unit SUB-Q DAILY ml 04/11/18 04/26/18 History unit/mL (3 mL) subcutaneous pen levetiracetam 750 mg tablet 1,500 mg PO Q12H 04/11/18 04/26/18 History magnesium oxide 400 mg capsule 400 mg PO DAILY cap 04/11/18 04/26/18 History Prescriptions/Medication Reconciliation: New Azithromycin [Zithromax 250mg tab] 250 mg PO DIRECTED #6 tab Continue atorvastatin 10 mg tablet 10 mg PO DAILY 90 Days #90 tab hydralazine 10 mg tablet 10 mg PO TID 90 Days #270 tab metformin 500 mg tablet 500 mg PO BID 90 Days #180 tab calcium 600 mg-D3 800 unit-mag11 50 tv-debo-czaiku-jimmy-s.borat tablet 1 tab PO QHS levetiracetam 750 mg tablet 1,500 mg PO Q12H magnesium oxide 400 mg capsule 400 mg PO DAILY cap insulin glargine (U-100) 100 unit/mL (3 mL) subcutaneous pen 15 unit SUB-Q DAILY ml amlodipine 5 mg tablet 5 mg PO DAILY 90 Days #90 tab Aspirin [Low Dose Aspirin EC] 81 mg PO DAILY Oxycodone HCl/Acetaminophen [Percocet 7.5/325mg tablet] 1 tab PO Q8H PRN #30 tablet PRN Reason: Moderate To Severe Pain glipiZIDE [Glipizide ER] 5 mg PO DAILY Letrozole 2.5 mg PO DAILY Omeprazole [Omeprazole 20mg Capsule] 20 mg PO DAILY
== END 2018-04-29 11:30 | disposition home or self-care (01) ==
LOC: 2ND 12:25 → ER 12:25 → OBSVTOIN 16:20 → 2ND 16:21
PROVIDERS: ADMIT Internal Medicine Adolescent Medicine; ATTEND Emergency Medicine
CPT/HCPCS: 36415; 71020; 71046; 71260; 80048; 80053; 82803; 82962; 83605; 85007; 85025; 87040; 87275; 87276; 87430; 87486; 87581; 87633; 87798; 96365; 96367; 99285; J1956; J2543; J3370; Q9967

== ENCOUNTER → 2018-05-05 07:41 | Outpatient (CLI) | payer BC, SELFPAY ==
[2018-05-05 07:45] LABS: Microscopic, Urine URINE MICROSCOPIC (MICROSCOPIC)
[2018-05-05 07:57] LABS: Appearance,Urine SL CLOUDY (Clear); Blood, Urine Negative (Negative); Color,Urine ORANGE (Yellow); Glucose,Urine (UA) Negative (Negative); Ketones,Urine TRACE (Negative); Leukocyte Esterase,Urine Negative (Negative); Nitrate,Urine POSITIVE (Negative); PH,Urine 5.5 (5.0-8.5); Protein,Urine TRACE (Negative); Specific Gravity, Urine >= 1.030 (1.005-1.030)
[2018-05-05 07:59] LABS: Basophils # 0.1 K/mm3 (0-0.2); Basophils % 2.3 % (0.1-2.0); Eosinophils # 0.1 K/mm3 (0.0-0.4); Eosinophils % 1.5 % (0.1-12.0); Hematocrit 31.2 % (37.0-47.0); Hemoglobin 9.5 g/dL (12.2-16.2); Lymphocytes % 54.6 K/mm3 (10-50); Mean Corpuscular HGB Conc 30.4 g/dL (31.8-35.4); Mean Corpuscular Hemoglobin 27.1 pg (27.0-31.2); Mean Corpuscular Volume 89.1 fl (81-99); Mean Platelet Volume 8.2 fl (7.4-10.4); Monocytes # 0.3 K/mm3 (0.1-1.0); Monocytes % 5.7 % (1.7-9.3); Platelet Count 75 K/mm3 (142-424); Red Cell Distribution Width 18.9 % (11.5-17.5); White Blood Count 5.5 K/mm3 (4.8-10.8)
[2018-05-05 08:01] LABS: MANUAL DIFFERENTIAL MANUAL DIFFERENTIAL (MANUAL DIFF)
[2018-05-05 08:03] LABS: Bilirubin,Urine 2+ (Negative)
[2018-05-05 08:21] LABS: Corrected White Blood Count 4.4 K/mm3 (4.8-10.8); Eosinophils % 1 % (0-3); Lymphocytes % 55 % (10-50); Monocytes % 4 % (2-9); Neutrophils % 39 % (42-76); Nucleated Red Blood Cells 24; Total Cells Counted 100
[2018-05-05 08:22] LABS: Platelet Estimate Moderate Increase; RBC Morphology Normal
[2018-05-05 08:28] LABS: Bacteria,Urine 4+ /lpf
== END ==
PROVIDERS: Visit Provider Surgery
DX: C50.412 Malignant neoplasm of upper-outer quadrant of left female breast (principal)
CPT/HCPCS: 36415; 81001; 85007; 85025; 87086; 87088; 87186

== ENCOUNTER → 2018-05-23 14:17 | Outpatient (CLI) | payer BC, SELFPAY ==
[2018-05-23 15:35] LABS: Basophils # 0.1 K/mm3 (0-0.2); Basophils % 1.9 % (0.1-2.0); Eosinophils % 0.6 % (0.1-12.0); Hematocrit 26.8 % (37.0-47.0); Hemoglobin 8.6 g/dL (12.2-16.2); Mean Corpuscular HGB Conc 32.2 g/dL (31.8-35.4); Mean Corpuscular Hemoglobin 27.4 pg (27.0-31.2); Mean Corpuscular Volume 85.1 fl (81-99); Mean Platelet Volume 9.8 fl (7.4-10.4); Monocytes # 0.4 K/mm3 (0.1-1.0); Monocytes % 9.8 % (1.7-9.3); Neutrophils % 43.8 % (37.0-80.0); Red Blood Count 3.15 M/mm3 (4.20-5.40); Red Cell Distribution Width 21.1 % (11.5-17.5); White Blood Count 4.5 K/mm3 (4.8-10.8)
[2018-05-23 16:05] LABS: Platelet Count 20 K/mm3 (142-424)
[2018-05-23 18:24] LABS: Alanine Aminotransferase 65 U/L (12-78); Albumin Level 2.1 gm/dL (3.4-5.0); Albumin/Globulin Ratio 0.5 (1.1-1.8); Alkaline Phosphatase 702 U/L (46-116); Anion Gap 15.3 mEq/L (5-15); Aspartate Amino Transferase 116 U/L (15-37); Bilirubin,Total 2.9 mg/dL (0.2-1.0); Blood Urea Nitrogen 9 mg/dL (7-18); Carbon Dioxide 23 mmol/L (21.0-32.0); Chloride 104 mmol/L (98-107); Creatinine,Serum 0.72 mg/dL (0.55-1.02); Estimated Glomerular Filt Rate 83 ml/min (>60); GFR (African American) 101 ML/MIN (>60); Glucose 155 mg/dL (74-106); Potassium 3.3 mmoL/L (3.5-5.1); Sodium 139 mmol/L (136-145); Total Protein,Serum 6.1 gm/dL (6.4-8.2)
== END ==
PROVIDERS: Visit Provider Internal Medicine Medical Oncology
DX: C50.412 Malignant neoplasm of upper-outer quadrant of left female breast (principal)
CPT/HCPCS: 36415; 80053; 85025

== ENCOUNTER 2018-05-29 10:45 | Outpatient (CLI) | payer BC, SELFPAY ==
[2018-05-29 10:50] VITALS: BMI 33.7
[2018-05-29 11:20] LABS: Basophils # 0.1 K/mm3 (0-0.2); Basophils % 2.5 % (0.1-2.0); Eosinophils # 0.1 K/mm3 (0.0-0.4); Eosinophils % 1.3 % (0.1-12.0); Hematocrit 25.6 % (37.0-47.0); Hemoglobin 8.3 g/dL (12.2-16.2); Lymphocytes # 2.1 K/mm3 (0.7-4.5); Lymphocytes % 53.1 K/mm3 (10-50); Mean Corpuscular HGB Conc 32.4 g/dL (31.8-35.4); Mean Corpuscular Hemoglobin 29.1 pg (27.0-31.2); Mean Corpuscular Volume 89.9 fl (81-99); Mean Platelet Volume 7.8 fl (7.4-10.4); Monocytes # 0.3 K/mm3 (0.1-1.0); Monocytes % 7.8 % (1.7-9.3); Neutrophils # 1.4 K/mm3 (1.8-7.8); Neutrophils % 35.4 % (37.0-80.0); Red Blood Count 2.85 M/mm3 (4.20-5.40); Red Cell Distribution Width 22.3 % (11.5-17.5); White Blood Count 3.9 K/mm3 (4.8-10.8)
[2018-05-29 11:33] LABS: Platelet Count 44 K/mm3 (142-424)
[2018-05-29 11:35] LABS: MANUAL DIFFERENTIAL MANUAL DIFFERENTIAL (MANUAL DIFF)
[2018-05-29 11:38] LABS: Alanine Aminotransferase 50 U/L (12-78); Albumin Level 2.2 gm/dL (3.4-5.0); Albumin/Globulin Ratio 0.5 (1.1-1.8); Alkaline Phosphatase 490 U/L (46-116); Anion Gap 14.9 mEq/L (5-15); Aspartate Amino Transferase 90 U/L (15-37); Bilirubin,Total 2.3 mg/dL (0.2-1.0); Blood Urea Nitrogen 9 mg/dL (7-18); Calcium 9.2 mg/dL (8.5-10.1); Carbon Dioxide 23 mmol/L (21.0-32.0); Chloride 108 mmol/L (98-107); Creatinine Clearance Estimated 118 mL/min (0-300); Creatinine,Serum 0.78 mg/dL (0.55-1.02); Estimated Glomerular Filt Rate 76 ml/min (>60); GFR (African American) 92 ML/MIN (>60); Globulin 4.5 gm/dl (1.3-3.2); Glucose 123 mg/dL (74-106); Potassium 3.9 mmoL/L (3.5-5.1); Sodium 142 mmol/L (136-145); Total Protein,Serum 6.7 gm/dL (6.4-8.2)
[2018-05-29 12:15] LABS: Corrected White Blood Count 3.6 K/mm3 (4.8-10.8); Eosinophils % 2 % (0-3); Lymphocytes % 47 % (10-50); Monocytes % 9 % (2-9); Neutrophils % 38 % (42-76); Nucleated Red Blood Cells 7; Total Cells Counted 100
[2018-05-29 12:17] LABS: Platelet Estimate Moderate Decrease; RBC Morphology Normal
[2018-05-29 13:35] VITALS: BP 100/61; PULSE 96; RESP 18; TEMP 36.3
[2018-05-29 13:50] VITALS: BP 97/61; PULSE 96; RESP 16
[2018-05-29 14:05] VITALS: BP 97/60; PULSE 94; RESP 16
== END 2018-05-29 14:20 | disposition home or self-care (01) ==
LOC: INF 10:48
PROVIDERS: Family Provider Emergency Medicine; PCP Emergency Medicine; Visit Provider Internal Medicine Medical Oncology
DX: Z51.11 Encounter for antineoplastic chemotherapy (principal); C50.412 Malignant neoplasm of upper-outer quadrant of left female breast
CPT/HCPCS: 80053; 85007; 85025; 96413; J9201; Q0166

== ENCOUNTER 2018-06-05 09:05 | Outpatient (CLI) | payer BC, SELFPAY ==
[2018-06-05 09:07] VITALS: BMI 33.0
[2018-06-05 09:36] LABS: Basophils # 0.2 K/mm3 (0-0.2); Basophils % 5.8 % (0.1-2.0); Eosinophils % 0.6 % (0.1-12.0); Lymphocytes # 1.7 K/mm3 (0.7-4.5); Lymphocytes % 54.7 K/mm3 (10-50); Mean Corpuscular HGB Conc 32.7 g/dL (31.8-35.4); Mean Corpuscular Hemoglobin 28.4 pg (27.0-31.2); Mean Corpuscular Volume 86.6 fl (81-99); Mean Platelet Volume 9.8 fl (7.4-10.4); Monocytes # 0.1 K/mm3 (0.1-1.0); Monocytes % 3.2 % (1.7-9.3); Neutrophils # 1.3 K/mm3 (1.8-7.8); Neutrophils % 41.5 % (37.0-80.0); Red Blood Count 2.52 M/mm3 (4.20-5.40); Red Cell Distribution Width 21.2 % (11.5-17.5); White Blood Count 3.1 K/mm3 (4.8-10.8)
[2018-06-05 09:45] LABS: Alanine Aminotransferase 46 U/L (12-78); Albumin Level 2.2 gm/dL (3.4-5.0); Albumin/Globulin Ratio 0.5 (1.1-1.8); Alkaline Phosphatase 331 U/L (46-116); Anion Gap 11.8 mEq/L (5-15); Aspartate Amino Transferase 97 U/L (15-37); Bilirubin,Total 1.8 mg/dL (0.2-1.0); Blood Urea Nitrogen 7 mg/dL (7-18); Calcium 8.9 mg/dL (8.5-10.1); Carbon Dioxide 24 mmol/L (21.0-32.0); Chloride 106 mmol/L (98-107); Creatinine Clearance Estimated 122 mL/min (0-300); Creatinine,Serum 0.74 mg/dL (0.55-1.02); Estimated Glomerular Filt Rate 81 ml/min (>60); GFR (African American) 98 ML/MIN (>60); Globulin 4.6 gm/dl (1.3-3.2); Glucose 144 mg/dL (74-106); Hematocrit 21.7 % (37.0-47.0); Hemoglobin 7.2 g/dL (12.2-16.2); Platelet Count 20 K/mm3 (142-424); Potassium 3.8 mmoL/L (3.5-5.1); Sodium 138 mmol/L (136-145); Total Protein,Serum 6.8 gm/dL (6.4-8.2)
[2018-06-05 09:47] LABS: MANUAL DIFFERENTIAL MANUAL DIFFERENTIAL (MANUAL DIFF)
[2018-06-05 10:09] LABS: Corrected White Blood Count 2.8 K/mm3 (4.8-10.8); Lymphocytes % 57 % (10-50); Neutrophils % 37 % (42-76); Nucleated Red Blood Cells 11; Total Cells Counted 100
[2018-06-05 10:11] LABS: Platelet Estimate Marked Dec; RBC Morphology Normal
== END 2018-06-05 10:40 | disposition home or self-care (01) ==
LOC: INF 09:11
PROVIDERS: Family Provider Emergency Medicine; PCP Emergency Medicine; Visit Provider Internal Medicine Medical Oncology
DX: C50.412 Malignant neoplasm of upper-outer quadrant of left female breast (principal); Z45.2 Encounter for adjustment and management of vascular access device
CPT/HCPCS: 80053; 85007; 85025; 86850; J1642

== ENCOUNTER 2018-06-06 08:30 | Outpatient (CLI) | payer BC, SELFPAY ==
[2018-06-06] VITALS (20 sets, daily range): BP systolic 96–120; BP diastolic 52–68; PULSE 68–110; RESP 20; TEMP 36.2–36.7; O2SAT 95–100; BMI 33.4
[2018-06-06 14:31] LABS: Hematocrit 27.5 % (37.0-47.0); Hemoglobin 9.3 g/dL (12.2-16.2)
== END 2018-06-06 14:45 | disposition home or self-care (01) ==
LOC: INF 08:35
PROVIDERS: Family Provider Emergency Medicine; PCP Emergency Medicine; Visit Provider Internal Medicine Medical Oncology
DX: C50.412 Malignant neoplasm of upper-outer quadrant of left female breast (principal); C34.90 Malignant neoplasm of unspecified part of unspecified bronchus or lung; D64.9 Anemia, unspecified
CPT/HCPCS: 36430; 85014; 85018; J1642; P9016

== ENCOUNTER 2018-06-12 12:05 | Outpatient (CLI) | payer BC, SELFPAY ==
[2018-06-12 12:13] VITALS: BMI 34.0
[2018-06-12 12:33] LABS: Basophils # 0.1 K/mm3 (0-0.2); Eosinophils # 0.1 K/mm3 (0.0-0.4); Hematocrit 27.7 % (37.0-47.0); Lymphocytes # 1.6 K/mm3 (0.7-4.5); Lymphocytes % 50.9 K/mm3 (10-50); Mean Corpuscular HGB Conc 32.5 g/dL (31.8-35.4); Mean Corpuscular Hemoglobin 29.5 pg (27.0-31.2); Mean Corpuscular Volume 90.8 fl (81-99); Mean Platelet Volume 8.4 fl (7.4-10.4); Monocytes # 0.3 K/mm3 (0.1-1.0); Monocytes % 9.1 % (1.7-9.3); Neutrophils # 1.2 K/mm3 (1.8-7.8); Red Blood Count 3.05 M/mm3 (4.20-5.40); Red Cell Distribution Width 22.1 % (11.5-17.5); White Blood Count 3.2 K/mm3 (4.8-10.8)
[2018-06-12 12:37] LABS: Platelet Count 39 K/mm3 (142-424)
[2018-06-12 12:39] LABS: MANUAL DIFFERENTIAL MANUAL DIFFERENTIAL (MANUAL DIFF)
[2018-06-12 13:02] LABS: Alanine Aminotransferase 33 U/L (12-78); Albumin Level 2.1 gm/dL (3.4-5.0); Albumin/Globulin Ratio 0.5 (1.1-1.8); Alkaline Phosphatase 247 U/L (46-116); Anion Gap 10.8 mEq/L (5-15); Aspartate Amino Transferase 63 U/L (15-37); Bilirubin,Total 1.4 mg/dL (0.2-1.0); Blood Urea Nitrogen 8 mg/dL (7-18); Calcium 8.8 mg/dL (8.5-10.1); Carbon Dioxide 26 mmol/L (21.0-32.0); Chloride 105 mmol/L (98-107); Creatinine Clearance Estimated 106 mL/min (0-300); Creatinine,Serum 0.87 mg/dL (0.55-1.02); Estimated Glomerular Filt Rate 67 ml/min (>60); GFR (African American) 81 ML/MIN (>60); Globulin 4.3 gm/dl (1.3-3.2); Glucose 100 mg/dL (74-106); Potassium 3.8 mmoL/L (3.5-5.1); Sodium 138 mmol/L (136-145); Total Protein,Serum 6.4 gm/dL (6.4-8.2)
[2018-06-12 13:03] LABS: Eosinophils % 1 % (0-3); Lymphocytes % 44 % (10-50); Monocytes % 9 % (2-9); Neutrophils % 43 % (42-76); Nucleated Red Blood Cells 7; Total Cells Counted 100
[2018-06-12 13:04] LABS: Platelet Estimate Moderate Decrease
[2018-06-12 13:05] LABS: RBC Morphology Normal
[2018-06-12 13:50] VITALS: BP 100/73; PULSE 102; RESP 18
[2018-06-12 14:05] VITALS: BP 112/69; PULSE 94; RESP 18
[2018-06-12 14:20] VITALS: BP 105/68; PULSE 91; RESP 16
[2018-06-12 14:35] VITALS: BP 106/67; PULSE 94; RESP 16
[2018-06-12 14:50] VITALS: BP 108/68; PULSE 92; RESP 16
[2018-06-12 15:00] VITALS: BP 113/69; PULSE 92; RESP 16
== END 2018-06-12 15:08 | disposition home or self-care (01) ==
LOC: INF 12:12
PROVIDERS: Internal Medicine Medical Oncology; Family Provider Emergency Medicine; PCP Emergency Medicine; Visit Provider Internal Medicine
DX: Z51.11 Encounter for antineoplastic chemotherapy (principal); C50.412 Malignant neoplasm of upper-outer quadrant of left female breast
CPT/HCPCS: 80053; 85007; 85025; 96413; 96415; 96417; J8501; J9045; J9201; Q0166

== ENCOUNTER 2018-06-19 08:17 | Outpatient (CLI) | payer BC, SELFPAY ==
[2018-06-19 08:21] VITALS: BMI 75.0
[2018-06-19 08:57] LABS: Basophils % 1.4 % (0.1-2.0); Eosinophils % 0.7 % (0.1-12.0); Hematocrit 25.9 % (37.0-47.0); Hemoglobin 8.4 g/dL (12.2-16.2); Lymphocytes # 0.5 K/mm3 (0.7-4.5); Mean Corpuscular HGB Conc 32.2 g/dL (31.8-35.4); Mean Corpuscular Hemoglobin 29.5 pg (27.0-31.2); Mean Corpuscular Volume 91.6 fl (81-99); Mean Platelet Volume 8.2 fl (7.4-10.4); Neutrophils # 0.5 K/mm3 (1.8-7.8); Neutrophils % 44.9 % (37.0-80.0); Red Blood Count 2.83 M/mm3 (4.20-5.40); Red Cell Distribution Width 19.9 % (11.5-17.5); White Blood Count 1.1 K/mm3 (4.8-10.8)
[2018-06-19 09:15] LABS: Platelet Count 29 K/mm3 (142-424)
[2018-06-19 09:18] LABS: MANUAL DIFFERENTIAL MANUAL DIFFERENTIAL (MANUAL DIFF)
[2018-06-19 09:49] LABS: Alanine Aminotransferase 80 U/L (12-78); Albumin Level 2.3 gm/dL (3.4-5.0); Albumin/Globulin Ratio 0.6 (1.1-1.8); Alkaline Phosphatase 236 U/L (46-116); Anion Gap 15.2 mEq/L (5-15); Aspartate Amino Transferase 90 U/L (15-37); Bilirubin,Total 1.2 mg/dL (0.2-1.0); Blood Urea Nitrogen 8 mg/dL (7-18); Calcium 8.2 mg/dL (8.5-10.1); Carbon Dioxide 24 mmol/L (21.0-32.0); Chloride 106 mmol/L (98-107); Creatinine Clearance Estimated 70 mL/min (0-300); Creatinine,Serum 0.82 mg/dL (0.55-1.02); Estimated Glomerular Filt Rate 72 ml/min (>60); GFR (African American) 87 ML/MIN (>60); Globulin 3.6 gm/dl (1.3-3.2); Glucose 146 mg/dL (74-106); Potassium 4.2 mmoL/L (3.5-5.1); Sodium 141 mmol/L (136-145); Total Protein,Serum 5.9 gm/dL (6.4-8.2)
[2018-06-19 10:21] LABS: Lymphocytes % 48 % (10-50); Monocytes % 4 % (2-9); Neutrophils % 48 % (42-76); Total Cells Counted 50
[2018-06-19 10:22] LABS: Platelet Estimate Marked Decrease
== END 2018-06-19 09:45 | disposition home or self-care (01) ==
LOC: INF 08:17
PROVIDERS: Family Provider Emergency Medicine; PCP Emergency Medicine; Visit Provider Internal Medicine Medical Oncology
DX: C50.412 Malignant neoplasm of upper-outer quadrant of left female breast (principal); Z45.2 Encounter for adjustment and management of vascular access device
CPT/HCPCS: 80053; 85007; 85025; J1642

== ENCOUNTER → 2018-06-26 08:36 | Outpatient (CLI) | payer BC, SELFPAY ==
[2018-06-26] VITALS (18 sets, daily range): BP systolic 95–122; BP diastolic 53–79; PULSE 90–109; RESP 16–18; TEMP 36.3–36.6; O2SAT 95; BMI 34.9
[2018-06-26 09:08] LABS: Alanine Aminotransferase 39 U/L (12-78); Albumin Level 2.2 gm/dL (3.4-5.0); Albumin/Globulin Ratio 0.6 (1.1-1.8); Alkaline Phosphatase 196 U/L (46-116); Anion Gap 10.7 mEq/L (5-15); Aspartate Amino Transferase 47 U/L (15-37); Bilirubin,Total 1.3 mg/dL (0.2-1.0); Blood Urea Nitrogen 9 mg/dL (7-18); Calcium 8.8 mg/dL (8.5-10.1); Carbon Dioxide 26 mmol/L (21.0-32.0); Chloride 106 mmol/L (98-107); Creatinine Clearance Estimated 125 mL/min (0-300); Creatinine,Serum 0.76 mg/dL (0.55-1.02); Estimated Glomerular Filt Rate 78 ml/min (>60); GFR (African American) 95 ML/MIN (>60); Glucose 167 mg/dL (74-106); Potassium 3.7 mmoL/L (3.5-5.1); Sodium 139 mmol/L (136-145); Total Protein,Serum 6.2 gm/dL (6.4-8.2)
[2018-06-26 09:27] LABS: Basophils % 1.7 % (0.1-2.0); Eosinophils % 0.8 % (0.1-12.0); Lymphocytes # 1.1 K/mm3 (0.7-4.5); Lymphocytes % 50.3 K/mm3 (10-50); Mean Corpuscular HGB Conc 32.9 g/dL (31.8-35.4); Mean Corpuscular Hemoglobin 30.3 pg (27.0-31.2); Mean Corpuscular Volume 92.1 fl (81-99); Mean Platelet Volume 8.4 fl (7.4-10.4); Monocytes # 0.3 K/mm3 (0.1-1.0); Monocytes % 11.4 % (1.7-9.3); Neutrophils # 0.8 K/mm3 (1.8-7.8); Neutrophils % 35.7 % (37.0-80.0); Red Blood Count 2.47 M/mm3 (4.20-5.40); Red Cell Distribution Width 22.2 % (11.5-17.5); White Blood Count 2.2 K/mm3 (4.8-10.8)
[2018-06-26 09:32] LABS: Hematocrit 23.1 % (37.0-47.0); Hemoglobin 7.6 g/dL (12.2-16.2)
[2018-06-26 09:33] LABS: Platelet Count 42 K/mm3 (142-424)
[2018-06-26 09:35] LABS: MANUAL DIFFERENTIAL MANUAL DIFFERENTIAL (MANUAL DIFF)
[2018-06-26 10:42] LABS: Lymphocytes % 30 % (10-50); Monocytes % 1 % (2-9); Neutrophils % 39 % (42-76); Nucleated Red Blood Cells 1; Total Cells Counted 100
[2018-06-26 10:44] LABS: Anisocytosis 1+; Platelet Estimate Marked Decrease; Rouleaux 1+
--- NOTE | 2018-06-26 12:58 | PC.NURSE ---
1255 - BLOOD TRANSFUSION STARTED AT THIS TIME AT 100 ML/HR.
--- NOTE | 2018-06-26 13:56 | PC.NURSE ---
1325 - INCREASED RATE TO 150 ML/HR AT THIS TIME.
--- NOTE | 2018-06-26 14:05 | PC.NURSE ---
1355 - INCREASED RATE TO 200 ML/HR AT THIS TIME.
--- NOTE | 2018-06-26 14:57 | PC.NURSE ---
RATE INCREASED TO 250 ML/HR AT 1430.
--- NOTE | 2018-06-26 15:20 | PC.NURSE ---
1515 - BLOOD TRANSFUSION STARTED AT 100 ML/HR AT THIS TIME.
--- NOTE | 2018-06-26 16:24 | PC.NURSE ---
1545 - RATE INCREASED TO 150 ML/HR AT THIS TIME.
--- NOTE | 2018-06-26 16:27 | PC.NURSE ---
1615 - INCREASED RATE TO 200 ML/HR AT THIS TIME.
--- NOTE | 2018-06-26 17:17 | PC.NURSE ---
RATE WAS INCREASED TO 250 ML/HR AT 1645.
[2018-06-26 18:11] LABS: Hematocrit 29.5 % (37.0-47.0)
[2018-06-26 18:18] LABS: Hemoglobin 9.8 g/dL (12.2-16.2)
== END ==
PROVIDERS: Family Provider Emergency Medicine; PCP Emergency Medicine; Visit Provider Internal Medicine Medical Oncology
DX: C50.412 Malignant neoplasm of upper-outer quadrant of left female breast (principal)
CPT/HCPCS: 80053; 85007; 85014; 85018; 85025; 86850; J1642; P9016

== ENCOUNTER 2018-07-03 11:28 | Outpatient (CLI) | payer BC, SELFPAY ==
[2018-07-03 11:28] VITALS: BMI 35.2
[2018-07-03 11:54] LABS: Basophils % 0.8 % (0.1-2.0); Eosinophils % 1.1 % (0.1-12.0); Hematocrit 29.7 % (37.0-47.0); Hemoglobin 9.4 g/dL (12.2-16.2); Lymphocytes # 1.2 K/mm3 (0.7-4.5); Lymphocytes % 52.8 K/mm3 (10-50); Mean Corpuscular HGB Conc 31.8 g/dL (31.8-35.4); Mean Corpuscular Volume 94.2 fl (81-99); Mean Platelet Volume 8.1 fl (7.4-10.4); Monocytes # 0.3 K/mm3 (0.1-1.0); Monocytes % 12.8 % (1.7-9.3); Neutrophils # 0.8 K/mm3 (1.8-7.8); Neutrophils % 32.4 % (37.0-80.0); Platelet Count 86 K/mm3 (142-424); Red Blood Count 3.15 M/mm3 (4.20-5.40); Red Cell Distribution Width 20.3 % (11.5-17.5); White Blood Count 2.3 K/mm3 (4.8-10.8)
[2018-07-03 12:04] LABS: MANUAL DIFFERENTIAL MANUAL DIFFERENTIAL (MANUAL DIFF)
[2018-07-03 12:11] LABS: Alanine Aminotransferase 27 U/L (12-78); Albumin Level 2.2 gm/dL (3.4-5.0); Albumin/Globulin Ratio 0.5 (1.1-1.8); Alkaline Phosphatase 163 U/L (46-116); Anion Gap 11.7 mEq/L (5-15); Aspartate Amino Transferase 45 U/L (15-37); Bilirubin,Total 1.4 mg/dL (0.2-1.0); Blood Urea Nitrogen 5 mg/dL (7-18); Carbon Dioxide 26 mmol/L (21.0-32.0); Chloride 106 mmol/L (98-107); Creatinine Clearance Estimated 121 mL/min (0-300); Creatinine,Serum 0.79 mg/dL (0.55-1.02); Estimated Glomerular Filt Rate 75 ml/min (>60); GFR (African American) 90 ML/MIN (>60); Globulin 4.2 gm/dl (1.3-3.2); Glucose 107 mg/dL (74-106); Potassium 3.7 mmoL/L (3.5-5.1); Sodium 140 mmol/L (136-145); Total Protein,Serum 6.4 gm/dL (6.4-8.2)
[2018-07-03 12:40] LABS: Eosinophils % 2 % (0-3); Lymphocytes % 38 % (10-50); Monocytes % 16 % (2-9); Neutrophils % 31 % (42-76); Total Cells Counted 100
[2018-07-03 12:41] LABS: Platelet Estimate Marked Decrease; RBC Morphology Normal
== END 2018-07-03 13:35 | disposition home or self-care (01) ==
LOC: INF 11:28
PROVIDERS: Family Provider Emergency Medicine; PCP Emergency Medicine; Visit Provider Internal Medicine Medical Oncology
DX: C50.412 Malignant neoplasm of upper-outer quadrant of left female breast (principal)
CPT/HCPCS: 80053; 85007; 85025; J1642

== ENCOUNTER 2018-07-10 08:45 | Outpatient (CLI) | payer BC, SELFPAY ==
[2018-07-10 08:59] VITALS: BMI 36.8
[2018-07-10 09:23] LABS: Basophils % 0.9 % (0.1-2.0); Eosinophils # 0.1 K/mm3 (0.0-0.4); Eosinophils % 1.8 % (0.1-12.0); Hematocrit 29.5 % (37.0-47.0); Hemoglobin 9.5 g/dL (12.2-16.2); Lymphocytes # 1.1 K/mm3 (0.7-4.5); Lymphocytes % 37.4 K/mm3 (10-50); Mean Corpuscular HGB Conc 32.2 g/dL (31.8-35.4); Mean Corpuscular Hemoglobin 30.9 pg (27.0-31.2); Mean Corpuscular Volume 95.8 fl (81-99); Mean Platelet Volume 7.4 fl (7.4-10.4); Monocytes # 0.3 K/mm3 (0.1-1.0); Monocytes % 10.5 % (1.7-9.3); Neutrophils # 1.5 K/mm3 (1.8-7.8); Neutrophils % 49.4 % (37.0-80.0); Platelet Count 104 K/mm3 (142-424); Red Blood Count 3.08 M/mm3 (4.20-5.40); Red Cell Distribution Width 19.8 % (11.5-17.5)
[2018-07-10 09:44] LABS: Alanine Aminotransferase 21 U/L (12-78); Albumin Level 2.3 gm/dL (3.4-5.0); Albumin/Globulin Ratio 0.5 (1.1-1.8); Alkaline Phosphatase 155 U/L (46-116); Anion Gap 10.9 mEq/L (5-15); Aspartate Amino Transferase 41 U/L (15-37); Bilirubin,Total 1.2 mg/dL (0.2-1.0); Blood Urea Nitrogen 4 mg/dL (7-18); Calcium 8.8 mg/dL (8.5-10.1); Carbon Dioxide 27 mmol/L (21.0-32.0); Chloride 107 mmol/L (98-107); Creatinine Clearance Estimated 125 mL/min (0-300); Creatinine,Serum 0.77 mg/dL (0.55-1.02); Estimated Glomerular Filt Rate 77 ml/min (>60); GFR (African American) 93 ML/MIN (>60); Globulin 4.3 gm/dl (1.3-3.2); Glucose 113 mg/dL (74-106); Potassium 3.9 mmoL/L (3.5-5.1); Sodium 141 mmol/L (136-145); Total Protein,Serum 6.6 gm/dL (6.4-8.2)
[2018-07-10 12:20] VITALS: BP 111/80; PULSE 88; RESP 18; TEMP 37.1
[2018-07-10 12:35] VITALS: BP 110/66; PULSE 84; RESP 16
[2018-07-10 12:50] VITALS: BP 111/70; PULSE 88; RESP 16
[2018-07-10 13:05] VITALS: BP 113/67; PULSE 88; RESP 16
[2018-07-10 13:20] VITALS: BP 109/72; PULSE 85; RESP 16
[2018-07-10 13:30] VITALS: BP 112/73; PULSE 82; RESP 16
== END 2018-07-10 13:45 | disposition home or self-care (01) ==
LOC: INF 08:57
PROVIDERS: Family Provider Emergency Medicine; PCP Emergency Medicine; Visit Provider Internal Medicine Medical Oncology
DX: Z51.11 Encounter for antineoplastic chemotherapy (principal); C50.412 Malignant neoplasm of upper-outer quadrant of left female breast
CPT/HCPCS: 80053; 85025; 96413; 96417; J8501; J9045; J9201; Q0166

== ENCOUNTER 2018-07-17 08:46 | Outpatient (CLI) | payer BC, SELFPAY ==
[2018-07-17 08:36] VITALS: BMI 36.6
[2018-07-17 08:57] LABS: Basophils % 0.9 % (0.1-2.0); Eosinophils % 1.7 % (0.1-12.0); Hemoglobin 8.5 g/dL (12.2-16.2); Lymphocytes # 0.8 K/mm3 (0.7-4.5); Lymphocytes % 50.9 K/mm3 (10-50); Mean Corpuscular HGB Conc 32.6 g/dL (31.8-35.4); Mean Corpuscular Hemoglobin 30.7 pg (27.0-31.2); Mean Corpuscular Volume 94.2 fl (81-99); Mean Platelet Volume 7.7 fl (7.4-10.4); Monocytes % 1.4 % (1.7-9.3); Neutrophils # 0.7 K/mm3 (1.8-7.8); Neutrophils % 45.2 % (37.0-80.0); Red Blood Count 2.78 M/mm3 (4.20-5.40); Red Cell Distribution Width 18.3 % (11.5-17.5)
[2018-07-17 09:04] LABS: MANUAL DIFFERENTIAL MANUAL DIFFERENTIAL (MANUAL DIFF)
[2018-07-17 09:05] LABS: Hematocrit 25.9 % (37.0-47.0); White Blood Count 1.5 K/mm3 (4.8-10.8)
[2018-07-17 09:06] LABS: Alanine Aminotransferase 68 U/L (12-78); Albumin Level 2.5 gm/dL (3.4-5.0); Albumin/Globulin Ratio 0.6 (1.1-1.8); Alkaline Phosphatase 183 U/L (46-116); Anion Gap 9.1 mEq/L (5-15); Aspartate Amino Transferase 70 U/L (15-37); Bilirubin,Total 0.9 mg/dL (0.2-1.0); Blood Urea Nitrogen 6 mg/dL (7-18); Calcium 9.1 mg/dL (8.5-10.1); Carbon Dioxide 29 mmol/L (21.0-32.0); Chloride 108 mmol/L (98-107); Creatinine Clearance Estimated 156 mL/min (0-300); Creatinine,Serum 0.64 mg/dL (0.55-1.02); Estimated Glomerular Filt Rate 95 ml/min (>60); GFR (African American) 115 ML/MIN (>60); Globulin 4.2 gm/dl (1.3-3.2); Glucose 93 mg/dL (74-106); Potassium 4.1 mmoL/L (3.5-5.1); Sodium 142 mmol/L (136-145); Total Protein,Serum 6.7 gm/dL (6.4-8.2)
[2018-07-17 09:07] LABS: Platelet Count 47 K/mm3 (142-424)
[2018-07-17 10:09] LABS: Lymphocytes % 54 % (10-50); Monocytes % 2 % (2-9); Neutrophils % 42 % (42-76); Total Cells Counted 100
[2018-07-17 10:11] LABS: Platelet Estimate Marked Dec; RBC Morphology Normal
== END 2018-07-17 10:20 | disposition home or self-care (01) ==
LOC: INF 08:46
PROVIDERS: Family Provider Emergency Medicine; PCP Emergency Medicine; Visit Provider Internal Medicine Medical Oncology
DX: C50.412 Malignant neoplasm of upper-outer quadrant of left female breast (principal)
CPT/HCPCS: 80053; 85007; 85025; J1642

== ENCOUNTER 2018-07-23 11:11 | Outpatient (CLI) | payer BC, SELFPAY ==
[2018-07-23 10:13] VITALS: BMI 36.8
[2018-07-23 10:33] LABS: Basophils % 0.7 % (0.1-2.0); Eosinophils % 0.8 % (0.1-12.0); Hematocrit 25.3 % (37.0-47.0); Hemoglobin 8.2 g/dL (12.2-16.2); Lymphocytes % 41.6 K/mm3 (10-50); Mean Corpuscular HGB Conc 32.2 g/dL (31.8-35.4); Mean Corpuscular Hemoglobin 31.1 pg (27.0-31.2); Mean Corpuscular Volume 96.3 fl (81-99); Mean Platelet Volume 7.8 fl (7.4-10.4); Monocytes # 0.2 K/mm3 (0.1-1.0); Monocytes % 10.1 % (1.7-9.3); Neutrophils # 1.1 K/mm3 (1.8-7.8); Neutrophils % 46.9 % (37.0-80.0); Red Blood Count 2.63 M/mm3 (4.20-5.40); Red Cell Distribution Width 20.2 % (11.5-17.5); White Blood Count 2.3 K/mm3 (4.8-10.8)
[2018-07-23 10:46] LABS: Alanine Aminotransferase 36 U/L (12-78); Albumin Level 2.5 gm/dL (3.4-5.0); Albumin/Globulin Ratio 0.6 (1.1-1.8); Alkaline Phosphatase 172 U/L (46-116); Anion Gap 11.1 mEq/L (5-15); Aspartate Amino Transferase 41 U/L (15-37); Blood Urea Nitrogen 6 mg/dL (7-18); Calcium 9.3 mg/dL (8.5-10.1); Carbon Dioxide 27 mmol/L (21.0-32.0); Chloride 107 mmol/L (98-107); Creatinine Clearance Estimated 152 mL/min (0-300); Creatinine,Serum 0.66 mg/dL (0.55-1.02); Estimated Glomerular Filt Rate 92 ml/min (>60); GFR (African American) 111 ML/MIN (>60); Globulin 4.3 gm/dl (1.3-3.2); Glucose 108 mg/dL (74-106); Potassium 4.1 mmoL/L (3.5-5.1); Sodium 141 mmol/L (136-145); Total Protein,Serum 6.8 gm/dL (6.4-8.2)
[2018-07-23 10:49] LABS: Platelet Count 48 K/mm3 (142-424)
--- NOTE | 2018-07-23 11:12 | CT_ITS ---
CT abdomen pelvis w con CLINICAL INDICATION: Metastatic breast cancer ITS.REASON: breast cancer with mets ORDERING PHYSICIAN: Diana Davila MD PATIENT AGE: 57 years COMPARISON: 05/20/2018, 03/16/2018 TECHNIQUE: Axial images obtained with sagittal and coronal reformats. All CT scans at the facility use one or more dose reduction, viz: automated exposure control, ma/kV adjustment per patient size (including targeted exams where dose is matched to indication, i.e. head), or iterative reconstruction technique. PROCEDURE: Oral Contrast: Redicat IV Contrast: 75 mL's of Isovue-370. FINDINGS: There are numerous hypoattenuating lesions throughout the liver. These were present on 05/20/2018. It is difficult to determine if they have changed from that study as that exam was unenhanced. The overall volume of the liver however appears to be smaller on today's exam with the liver measuring 23 cm transverse improved as a measuring 27 cm transverse. The bulk of the numerous lesions does appear to have slightly decreased. The liver margin is somewhat irregular. There is some increased density of the gallbladder suggesting underlying sludge and/or stones. There is splenomegaly at 18 cm The pancreas, adrenal glands, and kidneys have an unremarkable appearance. There is diffuse subcutaneous edema. No intestinal obstruction or free air is evident. Small amount of ascites is present with a small amount of perihepatic and perisplenic fluid and a small amount fluid in the pelvis. There is a moderate amount colonic feces in the rectosigmoid region. Coarse calcification is present at the fundus of the uterus consistent with fibroid calcification. Extensive osteoblastic metastasis noted within the spine, pelvis, and proximal femurs. No pathological fractures evident. No significant change in the diffuse osteoblastic metastasis. IMPRESSION: 1. Numerous hypoattenuating lesions of the liver. These appear somewhat less bulky than when compared to the unenhanced exam of 05/20/2018 but have definitely progressed since the most previous enhanced study of 03/16/2018. These are likely due to diffuse hepatic metastasis. Differential diagnosis would include infection such as a fungal infection. 2. Diffuse blastic metastasis of the skeletal structures not significantly changed 3. The liver has a somewhat irregular appearance and there is splenomegaly along with diffuse subcutaneous edema and a mild amount of ascites. Cirrhosis is considered. There is slight increase in ascites compared to the previous exam 4. Increased density in the gallbladder which may be related to sludge and/or stones.
--- NOTE | 2018-07-23 11:12 | CT_ITS ---
CT chest w con HISTORY: Metastatic breast cancer ITS.REASON: breast cancer with mets ORDERING PHYSICIAN: Diana Davila MD PATIENT AGE: 57 years COMPARISON: None TECHNIQUE: Axial images obtained following the administration of 75 mL of Isovue 370 . Sagittal, and coronal reformatted images are also generated and reviewed. All CT scans at the facility use one or more dose reduction, viz: automated exposure control, ma/kV adjustment per patient size (including targeted exams where dose is matched to indication, i.e. head), or iterative reconstruction technique. FINDINGS: No mediastinal or hilar mass or adenopathy. Diffuse increased density is present involving the left breast consistent with post surgical and possibly postradiation changes with skin thickening also noted along the left breast. There is a calcified granuloma in the right upper lobe. Parenchymal opacity is present in the right lung base similar to the previous exam and may be related to postinflammatory scarring. There is trace right-sided pleural effusion. There is a medium-sized left pleural effusion which has increased in size compared to the previous exam with some loculated fluid in the left lung base anteriorly. Volume loss is present in the left lung base from the underlying effusion. There is a 4 mm noncalcified nodule in the left apex unchanged. Diffuse osteoblastic metastatic foci are noted throughout the spine, ribs, and shoulder girdles and spine on as well as the proximal humeri. This is not significantly changed. Right subclavian Mediport catheter remains in place with the tip in the region of the distal SVC. IMPRESSION: 1. Diffuse osteoblastic metastatic foci not severely change. 2. Enlarging left-sided pleural effusion. 3. Chronic changes in the right lung base with volume loss in the left lung base.
== END 2018-07-23 12:25 | disposition home or self-care (01) ==
PROVIDERS: Family Provider Emergency Medicine; PCP Emergency Medicine; Visit Provider Internal Medicine Medical Oncology
DX: C50.412 Malignant neoplasm of upper-outer quadrant of left female breast (principal); Z03.89 Encounter for observation for other suspected diseases and conditions ruled out
CPT/HCPCS: 71260; 74177; 80053; 85025; J1642; Q9967

== ENCOUNTER 2018-07-24 13:27 | Outpatient (CLI) | payer BC, SELFPAY ==
--- NOTE | 2018-07-24 16:03 | PC.NURSE ---
right chest port-a-cath accessed 07-23-[address] scan[address] dressing c/d/i positive blood return noted
== END 2018-07-24 13:35 | disposition home or self-care (01) ==
LOC: INF 13:27
PROVIDERS: Family Provider Emergency Medicine; PCP Emergency Medicine; Visit Provider Internal Medicine Medical Oncology
DX: C50.412 Malignant neoplasm of upper-outer quadrant of left female breast (principal); Z45.2 Encounter for adjustment and management of vascular access device
CPT/HCPCS: 96523; J1642

== ENCOUNTER 2018-08-07 09:00 | Outpatient (CLI) | payer BC, SELFPAY ==
[2018-08-07 09:07] VITALS: BMI 36.8
[2018-08-07 09:49] LABS: Basophils % 0.4 % (0.1-2.0); Eosinophils % 1.5 % (0.1-12.0); Hematocrit 27.4 % (37.0-47.0); Hemoglobin 8.6 g/dL (12.2-16.2); Lymphocytes % 44.4 K/mm3 (10-50); Mean Corpuscular HGB Conc 31.4 g/dL (31.8-35.4); Mean Corpuscular Hemoglobin 31.9 pg (27.0-31.2); Mean Corpuscular Volume 101.6 fl (81-99); Monocytes # 0.2 K/mm3 (0.1-1.0); Monocytes % 8.9 % (1.7-9.3); Neutrophils % 44.7 % (37.0-80.0); Platelet Count 89 K/mm3 (142-424); Red Cell Distribution Width 19.8 % (11.5-17.5); White Blood Count 2.2 K/mm3 (4.8-10.8)
[2018-08-07 10:04] LABS: Alanine Aminotransferase 19 U/L (12-78); Albumin Level 2.1 gm/dL (3.4-5.0); Albumin/Globulin Ratio 0.4 (1.1-1.8); Alkaline Phosphatase 137 U/L (46-116); Anion Gap 12.9 mEq/L (5-15); Aspartate Amino Transferase 37 U/L (15-37); Bilirubin,Total 0.7 mg/dL (0.2-1.0); Blood Urea Nitrogen 8 mg/dL (7-18); Calcium 9.1 mg/dL (8.5-10.1); Carbon Dioxide 27 mmol/L (21.0-32.0); Chloride 105 mmol/L (98-107); Creatinine Clearance Estimated 124 mL/min (0-300); Creatinine,Serum 0.81 mg/dL (0.55-1.02); Estimated Glomerular Filt Rate 73 ml/min (>60); GFR (African American) 88 ML/MIN (>60); Globulin 5.5 gm/dl (1.3-3.2); Glucose 144 mg/dL (74-106); Potassium 3.9 mmoL/L (3.5-5.1); Sodium 141 mmol/L (136-145); Total Protein,Serum 7.6 gm/dL (6.4-8.2)
[2018-08-07 12:05] VITALS: BP 98/68; PULSE 83; RESP 18; TEMP 36.2; O2SAT 92
[2018-08-07 12:20] VITALS: BP 104/63; PULSE 82; RESP 16
[2018-08-07 12:35] VITALS: BP 68/46; PULSE 50; RESP 16
[2018-08-07 12:50] VITALS: BP 136/74; PULSE 93; RESP 16
[2018-08-07 13:05] VITALS: BP 117/73; PULSE 87; RESP 16
[2018-08-07 13:15] VITALS: BP 109/72; PULSE 86; RESP 16
== END 2018-08-07 13:20 | disposition home or self-care (01) ==
LOC: INF 09:05
PROVIDERS: Family Provider Emergency Medicine; PCP Emergency Medicine; Visit Provider Internal Medicine Medical Oncology
DX: Z51.11 Encounter for antineoplastic chemotherapy (principal); C50.412 Malignant neoplasm of upper-outer quadrant of left female breast
CPT/HCPCS: 80053; 85025; 96413; 96417; J8501; J9045; J9201; Q0166

== ENCOUNTER 2018-08-08 13:30 | Outpatient (CLI) | payer BC, SELFPAY ==
[2018-08-08 13:55] VITALS: BP 110/58; PULSE 62; RESP 18
== END 2018-08-08 14:15 | disposition home or self-care (01) ==
LOC: INF 13:36
PROVIDERS: Family Provider Emergency Medicine; PCP Emergency Medicine; Visit Provider Internal Medicine Medical Oncology
DX: C50.412 Malignant neoplasm of upper-outer quadrant of left female breast (principal); Z51.11 Encounter for antineoplastic chemotherapy
CPT/HCPCS: 96372; J2505

== ENCOUNTER 2018-08-14 12:25 | Outpatient (CLI) | payer BC, SELFPAY ==
[2018-08-14 12:29] VITALS: BMI 35.6
[2018-08-14 12:48] LABS: Basophils % 0.5 % (0.1-2.0); Eosinophils % 0.5 % (0.1-12.0); Hematocrit 26.5 % (37.0-47.0); Hemoglobin 8.4 g/dL (12.2-16.2); Lymphocytes # 1.2 K/mm3 (0.7-4.5); Lymphocytes % 27.5 K/mm3 (10-50); Mean Corpuscular HGB Conc 31.6 g/dL (31.8-35.4); Mean Corpuscular Volume 101.2 fl (81-99); Monocytes # 0.2 K/mm3 (0.1-1.0); Monocytes % 5.1 % (1.7-9.3); Neutrophils # 2.8 K/mm3 (1.8-7.8); Neutrophils % 66.4 % (37.0-80.0); Red Blood Count 2.62 M/mm3 (4.20-5.40); Red Cell Distribution Width 18.8 % (11.5-17.5); White Blood Count 4.3 K/mm3 (4.8-10.8)
[2018-08-14 12:58] LABS: Alanine Aminotransferase 81 U/L (12-78); Albumin Level 2.4 gm/dL (3.4-5.0); Albumin/Globulin Ratio 0.5 (1.1-1.8); Alkaline Phosphatase 171 U/L (46-116); Anion Gap 9.1 mEq/L (5-15); Aspartate Amino Transferase 72 U/L (15-37); Bilirubin,Total 0.6 mg/dL (0.2-1.0); Blood Urea Nitrogen 9 mg/dL (7-18); Calcium 9.1 mg/dL (8.5-10.1); Carbon Dioxide 28 mmol/L (21.0-32.0); Chloride 105 mmol/L (98-107); Creatinine Clearance Estimated 149 mL/min (0-300); Creatinine,Serum 0.65 mg/dL (0.55-1.02); Estimated Glomerular Filt Rate 94 ml/min (>60); GFR (African American) 113 ML/MIN (>60); Globulin 4.9 gm/dl (1.3-3.2); Glucose 138 mg/dL (74-106); Potassium 4.1 mmoL/L (3.5-5.1); Sodium 138 mmol/L (136-145); Total Protein,Serum 7.3 gm/dL (6.4-8.2)
[2018-08-14 13:17] LABS: Platelet Count 36 K/mm3 (142-424)
== END 2018-08-14 14:51 | disposition home or self-care (01) ==
LOC: INF 12:34
PROVIDERS: Visit Provider Internal Medicine Medical Oncology
DX: C50.412 Malignant neoplasm of upper-outer quadrant of left female breast (principal)
CPT/HCPCS: 80053; 85025; J1642

== ENCOUNTER 2018-08-28 09:57 | Outpatient (CLI) | payer BC, SELFPAY ==
[2018-08-28 09:59] VITALS: BMI 34.8
[2018-08-28 10:24] LABS: Basophils % 0.5 % (0.1-2.0); Eosinophils # 0.1 K/mm3 (0.0-0.4); Eosinophils % 1.2 % (0.1-12.0); Hematocrit 27.7 % (37.0-47.0); Hemoglobin 8.9 g/dL (12.2-16.2); Lymphocytes # 1.2 K/mm3 (0.7-4.5); Lymphocytes % 29.7 K/mm3 (10-50); Mean Corpuscular HGB Conc 32.1 g/dL (31.8-35.4); Mean Corpuscular Hemoglobin 33.7 pg (27.0-31.2); Mean Corpuscular Volume 104.8 fl (81-99); Mean Platelet Volume 7.7 fl (7.4-10.4); Monocytes # 0.5 K/mm3 (0.1-1.0); Monocytes % 11.7 % (1.7-9.3); Neutrophils # 2.3 K/mm3 (1.8-7.8); Neutrophils % 56.9 % (37.0-80.0); Platelet Count 99 K/mm3 (142-424); Red Blood Count 2.64 M/mm3 (4.20-5.40); Red Cell Distribution Width 20.3 % (11.5-17.5)
[2018-08-28 10:34] LABS: Alanine Aminotransferase 23 U/L (12-78); Albumin Level 2.5 gm/dL (3.4-5.0); Albumin/Globulin Ratio 0.5 (1.1-1.8); Alkaline Phosphatase 139 U/L (46-116); Anion Gap 12.8 mEq/L (5-15); Aspartate Amino Transferase 44 U/L (15-37); Bilirubin,Total 0.9 mg/dL (0.2-1.0); Blood Urea Nitrogen 8 mg/dL (7-18); Calcium 9.8 mg/dL (8.5-10.1); Carbon Dioxide 28 mmol/L (21.0-32.0); Chloride 104 mmol/L (98-107); Creatinine Clearance Estimated 139 mL/min (0-300); Creatinine,Serum 0.68 mg/dL (0.55-1.02); Estimated Glomerular Filt Rate 89 ml/min (>60); GFR (African American) 108 ML/MIN (>60); Globulin 4.9 gm/dl (1.3-3.2); Glucose 122 mg/dL (74-106); Potassium 3.8 mmoL/L (3.5-5.1); Sodium 141 mmol/L (136-145); Total Protein,Serum 7.4 gm/dL (6.4-8.2)
[2018-08-28 14:15] VITALS: BP 121/64; PULSE 91; RESP 20; TEMP 36.4; O2SAT 97
[2018-08-28 14:45] VITALS: BP 124/69; PULSE 89; RESP 20; O2SAT 98
[2018-08-28 15:15] VITALS: BP 120/66; PULSE 84; RESP 20; O2SAT 98
[2018-08-28 15:30] VITALS: BP 119/64; PULSE 88; RESP 20; O2SAT 97
== END 2018-08-28 15:30 | disposition home or self-care (01) ==
LOC: INF 09:57
PROVIDERS: Visit Provider Internal Medicine Medical Oncology
DX: Z51.11 Encounter for antineoplastic chemotherapy (principal); C50.412 Malignant neoplasm of upper-outer quadrant of left female breast
CPT/HCPCS: 80053; 85025; 96413; 96417; J8501; J9045; J9201; Q0166

== ENCOUNTER 2018-08-29 15:22 | Outpatient (CLI) | payer BC, SELFPAY ==
[2018-08-29 17:00] VITALS: BP 123/72; PULSE 68; RESP 20; TEMP 36.9; O2SAT 96
== END 2018-08-29 16:00 | disposition home or self-care (01) ==
LOC: INF 15:22
PROVIDERS: Visit Provider Internal Medicine Medical Oncology
DX: Z51.11 Encounter for antineoplastic chemotherapy (principal); C50.412 Malignant neoplasm of upper-outer quadrant of left female breast
CPT/HCPCS: 96372; J2505

== ENCOUNTER 2018-09-18 08:28 | Outpatient (CLI) | payer BC, SELFPAY ==
[2018-09-18 08:25] VITALS: BMI 35.0
[2018-09-18 08:52] LABS: Basophils % 0.5 % (0.1-2.0); Hematocrit 26.8 % (37.0-47.0); Hemoglobin 8.4 g/dL (12.2-16.2); Lymphocytes # 1.4 K/mm3 (0.7-4.5); Lymphocytes % 34.5 % (10-50); Mean Corpuscular HGB Conc 31.4 g/dL (31.8-35.4); Mean Corpuscular Volume 111.2 fl (81-99); Mean Platelet Volume 7.9 fl (7.4-10.4); Monocytes # 0.3 K/mm3 (0.1-1.0); Monocytes % 7.8 % (1.7-9.3); Neutrophils # 2.2 K/mm3 (1.8-7.8); Neutrophils % 56.3 % (37.0-80.0); Platelet Count 80 K/mm3 (142-424); Red Blood Count 2.41 M/mm3 (4.20-5.40)
[2018-09-18 09:01] LABS: Alanine Aminotransferase 22 U/L (12-78); Albumin Level 2.3 gm/dL (3.4-5.0); Albumin/Globulin Ratio 0.5 (1.1-1.8); Alkaline Phosphatase 162 U/L (46-116); Anion Gap 13.6 mEq/L (5-15); Aspartate Amino Transferase 40 U/L (15-37); Bilirubin,Total 0.7 mg/dL (0.2-1.0); Blood Urea Nitrogen 11 mg/dL (7-18); Calcium 9.4 mg/dL (8.5-10.1); Carbon Dioxide 27 mmol/L (21.0-32.0); Chloride 106 mmol/L (98-107); Creatinine Clearance Estimated 122 mL/min (50-200); Creatinine,Serum 0.78 mg/dL (0.55-1.02); Estimated Glomerular Filt Rate 76 ml/min (>60); GFR (African American) 92 ML/MIN (>60); Globulin 5.1 gm/dl (1.3-3.2); Glucose 112 mg/dL (74-106); Potassium 3.6 mmoL/L (3.5-5.1); Sodium 143 mmol/L (136-145); Total Protein,Serum 7.4 gm/dL (6.4-8.2)
[2018-09-18 11:15] VITALS: BP 120/64; PULSE 84; RESP 18; TEMP 36.7; O2SAT 96
[2018-09-18 11:30] VITALS: BP 123/74; PULSE 86; RESP 18
[2018-09-18 11:45] VITALS: BP 108/67; PULSE 84; RESP 18
[2018-09-18 12:00] VITALS: BP 120/68; PULSE 88; RESP 18
[2018-09-18 12:15] VITALS: BP 115/61; PULSE 86; RESP 18
[2018-09-18 12:30] VITALS: BP 125/69; PULSE 81; RESP 18
== END 2018-09-18 12:40 | disposition home or self-care (01) ==
LOC: INF 08:28
PROVIDERS: Visit Provider Internal Medicine Medical Oncology
DX: Z51.11 Encounter for antineoplastic chemotherapy (principal); C50.412 Malignant neoplasm of upper-outer quadrant of left female breast
CPT/HCPCS: 80053; 85025; 96413; 96417; J8501; J9045; J9201; Q0166

== ENCOUNTER 2018-09-19 14:00 | Outpatient (CLI) | payer BC, SELFPAY ==
[2018-09-19 14:12] VITALS: BP 131/97; PULSE 98; RESP 18; TEMP 36.8; O2SAT 97
[2018-09-19 14:20] VITALS: BP 131/97; PULSE 98; RESP 18; TEMP 36.1; O2SAT 97
== END 2018-09-19 14:12 | disposition home or self-care (01) ==
LOC: INF 14:08
PROVIDERS: Visit Provider Internal Medicine Medical Oncology
DX: Z51.11 Encounter for antineoplastic chemotherapy (principal); C50.412 Malignant neoplasm of upper-outer quadrant of left female breast
CPT/HCPCS: 96372; J2505

== ENCOUNTER 2018-10-09 09:35 | Outpatient (CLI) | payer BC, SELFPAY ==
[2018-10-09 09:44] VITALS: BMI 35.0
[2018-10-09 10:13] LABS: Basophils % 0.3 % (0.1-2.0); Eosinophils # 0.1 K/mm3 (0.0-0.4); Eosinophils % 1.3 % (0.1-12.0); Hematocrit 26.6 % (37.0-47.0); Hemoglobin 8.2 g/dL (12.2-16.2); Lymphocytes # 1.4 K/mm3 (0.7-4.5); Lymphocytes % 29.5 % (10-50); Mean Corpuscular HGB Conc 30.7 g/dL (31.8-35.4); Mean Corpuscular Hemoglobin 35.4 pg (27.0-31.2); Mean Corpuscular Volume 115.3 fl (81-99); Mean Platelet Volume 7.7 fl (7.4-10.4); Monocytes # 0.4 K/mm3 (0.1-1.0); Monocytes % 8.3 % (1.7-9.3); Neutrophils # 2.9 K/mm3 (1.8-7.8); Neutrophils % 60.6 % (37.0-80.0); Platelet Count 109 K/mm3 (142-424); Red Blood Count 2.31 M/mm3 (4.20-5.40); Red Cell Distribution Width 19.3 % (11.5-17.5); White Blood Count 4.8 K/mm3 (4.8-10.8)
[2018-10-09 10:32] LABS: Alanine Aminotransferase 26 U/L (12-78); Albumin Level 2.6 gm/dL (3.4-5.0); Albumin/Globulin Ratio 0.5 (1.1-1.8); Alkaline Phosphatase 160 U/L (46-116); Anion Gap 13.6 mEq/L (5-15); Aspartate Amino Transferase 45 U/L (15-37); Blood Urea Nitrogen 6 mg/dL (7-18); Calcium 9.5 mg/dL (8.5-10.1); Carbon Dioxide 27 mmol/L (21.0-32.0); Chloride 105 mmol/L (98-107); Creatinine Clearance Estimated 129 mL/min (50-200); Creatinine,Serum 0.74 mg/dL (0.55-1.02); Estimated Glomerular Filt Rate 81 ml/min (>60); GFR (African American) 98 ML/MIN (>60); Globulin 4.9 gm/dl (1.3-3.2); Glucose 105 mg/dL (74-106); Potassium 3.6 mmoL/L (3.5-5.1); Sodium 142 mmol/L (136-145); Total Protein,Serum 7.5 gm/dL (6.4-8.2)
[2018-10-09 12:30] VITALS: BP 117/71; PULSE 85; RESP 18; TEMP 36.4; O2SAT 95
[2018-10-09 12:45] VITALS: BP 116/83; PULSE 82; RESP 18
[2018-10-09 13:00] VITALS: BP 117/62; PULSE 80; RESP 18
[2018-10-09 13:15] VITALS: BP 135/66; PULSE 87; RESP 16
[2018-10-09 13:30] VITALS: BP 109/70; PULSE 85; RESP 16
[2018-10-09 13:35] VITALS: BP 133/54; PULSE 80; RESP 16
--- NOTE | 2018-10-09 16:22 | PC.NURSE ---
1405 - APPLIED ON-BODY INJECTOR CONTAINNG NEULASTA TO BACK OF RIGHT UPPER ARM AT THIS TIME. INSTRUCTED PT/SPOUSE ON HOW DEVICE WORKS AND ENCOURAGED TO CONTACT US FOR FURTHER QUESTIONS OR CONCERNS.
== END 2018-10-09 14:15 | disposition home or self-care (01) ==
LOC: INF 09:40
PROVIDERS: Visit Provider Internal Medicine Medical Oncology
DX: Z51.11 Encounter for antineoplastic chemotherapy (principal); C50.412 Malignant neoplasm of upper-outer quadrant of left female breast
CPT/HCPCS: 80053; 85025; 96413; 96417; J2505; J9045; J9201; Q0166

== ENCOUNTER 2018-10-21 15:00 | Outpatient (RCR) | payer BC, SELFPAY ==
--- NOTE | 2018-07-15 15:21 | HMH.PTOPWND ---
Rehab Outpt Wound Evaluation Rehab OP Wound Evaluation Start: 07/15/18 14:57 Freq: Status: Active Protocol: Document 07/15/18 15:10 [email or web address] (Rec: 07/15/18 15:20 PHORKARSON [id number]) Electronically Signed By Javy Olson, PT 07/15/18 15:10 Subjective/History History History Pt is 57 yowf who presents with left UE edema x ~ 2 yrs due to left metastatic breast cancer. She has mets verified to the liver, lumbar spine, ribs and pelvis. She reports no c/o pain or discomfort currently, but does report taking medication twice daily. She is currently undergoing chemotherapy and has a port in the right subclavian area. She has PMH of HTN and DM-II. Lymphedema Eval Classification of Lymphedema Secondary Lymphedema Yes: due to metastatic breast Stage of Lymphedema Lymphedema stages Stage II (Pitting edema, increased fibrosis w/ decreased pitting) Skin Changes Dry Skin Yes Redness Yes Other Changes Yes Pain Scale Pain Scale (0-10) 0 Chemo Therapy Has received chemo therapy yes Affected Extremities Areas Affected by Lymphedema/Edema Left Upper Extremity Abdomen Upper Extremity Measurements Left MCP Measurement (cm) 22.8 Web Space Measurement (cm) 26.5 Ulnar Styloid Process Measurement (cm) 23.6 10 cm Proximal to Ulnar Styloid 29.3 Measurement (cm) 20 cm Proximal to Ulnar Styloid 33.8 Measurement (cm) 30 cm Proximal to Ulnar Styloid 35.8 Measurement (cm) 40 cm Proximal to Ulnar Styloid 38.8 Measurement (cm) 50 cm Proximal to Ulnar Styloid 42.4 Measurement (cm) Manual Lymphatic Drainage Treatment Area MLD Treatment Area Left Upper Extremity Abdomen Wound Problems/Impairments Impairments Problems/Impairmments Increased Edema Lymphedema Present Impaired Self Care/Self Management Prognosis Rehab Potential Good Clinical Impression Consistent with Diagnosis Yes Short Term Goals Number of Weeks 4 Patient to Understand Lymphedema Yes Treatment and Exercises Decrease Girth Measurments by (cm) Yes: by 5 cm Care Home Goals Numbe
--- NOTE | 2018-09-24 14:00 | HMH.RHREAS ---
Rehab Reassessment Rehab OP Re-assessment Start: 09/24/18 13:55 Freq: Status: Active Protocol: Document 09/24/18 13:58 KAMALJIT (Rec: 09/24/18 14:00 KAMALJIT [id number]) Electronically Signed By Javy Olson, PT 09/24/18 13:58 Rehab Re-assessment Subjective Subjective Pt reports she feels much betetr overall with improving edema and endurance. Objective Objective Notes Circumferential Measurements: Left UE total is -15.2 cm since initial eval. Assessment Progress Assessment Progressing as Expected Assessment Notes Pt with fluctuating edema, but steadily improving overall. Patient goals met ST,2,3 LT,2,3 Goals Not Met LT,5 Revised Goals none Plan Plan Continue per initial POC. Frequency of Therapy 2x/wk Duration of therapy 8 wks. Time and Billing Re-Eval Time 15 Re-Eval Billing Units 1 PHYSICIAN CERTIFICATION: I certify the specified therapy services for Viviane Sams are required, authorized, and reviewed every 30 days.
== END 2018-10-21 15:05 | disposition home or self-care (01) ==
LOC: PT 15:00
PROVIDERS: Family Provider Emergency Medicine; PCP Emergency Medicine; Visit Provider Internal Medicine Medical Oncology
DX: C50.412 Malignant neoplasm of upper-outer quadrant of left female breast (principal); I89.0 Lymphedema, not elsewhere classified
CPT/HCPCS: 97010; 97110; 97140; 97162; 97164; 97760

== ENCOUNTER → 2018-10-24 09:33 | Outpatient (CLI) | payer BC, SELFPAY ==
[2018-10-24 09:11] VITALS: BMI 36.6
[2018-10-24 09:35] LABS: Basophils % 0.2 % (0.1-2.0); Eosinophils % 0.8 % (0.1-12.0); Hematocrit 25.8 % (37.0-47.0); Hemoglobin 8.1 g/dL (12.2-16.2); Lymphocytes # 1.2 K/mm3 (0.7-4.5); Lymphocytes % 26.8 % (10-50); Mean Corpuscular HGB Conc 31.3 g/dL (31.8-35.4); Mean Corpuscular Hemoglobin 35.9 pg (27.0-31.2); Mean Corpuscular Volume 114.7 fl (81-99); Mean Platelet Volume 8.4 fl (7.4-10.4); Monocytes # 0.5 K/mm3 (0.1-1.0); Monocytes % 10.3 % (1.7-9.3); Neutrophils # 2.8 K/mm3 (1.8-7.8); Neutrophils % 61.9 % (37.0-80.0); Platelet Count 56 K/mm3 (142-424); Red Blood Count 2.25 M/mm3 (4.20-5.40); Red Cell Distribution Width 19.2 % (11.5-17.5); White Blood Count 4.5 K/mm3 (4.8-10.8)
--- NOTE | 2018-10-24 09:36 | CT_ITS ---
CT abdomen pelvis w con CLINICAL INDICATION: Metastatic breast cancer ITS.REASON: breast cancer ORDERING PHYSICIAN: Diana Davila MD PATIENT AGE: 57 years COMPARISON: None TECHNIQUE: Axial images obtained with sagittal and coronal reformats. All CT scans at the facility use one or more dose reduction, viz: automated exposure control, ma/kV adjustment per patient size (including targeted exams where dose is matched to indication, i.e. head), or iterative reconstruction technique. PROCEDURE: Oral Contrast: Redicat IV Contrast: 75 mL of Isovue-370. FINDINGS: There are in numerable isodense lesions of the liver. These appear somewhat less numerous than when compared to the previous exam. Liver has an irregular contour. There is splenomegaly. Moderate-sized left effusion is once again noted. The adrenal glands, kidneys, and pancreas are unremarkable. There is mild diffuse subcutaneous edema as well as mild edema of the mesentery is. No intestinal obstruction or free air. There is a small amount of ascites. Diffuse blastic metastases are present involving the spine and pelvis does not appear significantly changed. IMPRESSION: 1. Diffuse hepatic metastasis. These appear somewhat less in number than when compared to the previous study. 2. The liver has an irregular contour and there is splenomegaly which may be related to cirrhosis with portal hypertension. There is a small amount of ascites and diffuse subcutaneous edema. 3. Diffuse skeletal metastasis unchanged
--- NOTE | 2018-10-24 09:36 | CT_ITS ---
CT chest w con HISTORY: Follow-up metastatic breast cancer ITS.REASON: breast cancer ORDERING PHYSICIAN: Diana Davila MD PATIENT AGE: 57 years COMPARISON: 07/23/2018 TECHNIQUE: Axial images obtained following the administration of 75 mL of Isovue 370 . Sagittal, and coronal reformatted images are also generated and reviewed. All CT scans at the facility use one or more dose reduction, viz: automated exposure control, ma/kV adjustment per patient size (including targeted exams where dose is matched to indication, i.e. head), or iterative reconstruction technique. FINDINGS: No mediastinal or hilar adenopathy. There is a small focus of increased density within the anterior mediastinum on the left is unchanged. This was somewhat more prominent on the older exam of 04/27/2018 but less prominent on today's exam. This may be due to small lymph node which is shrinking in size. There are coronary artery calcifications. No pericardial effusion apparent.. There are chronic changes in the right lung base. There is a moderate-sized left pleural effusion not significantly changed. Compressive atelectatic changes are present in the lung base on the left. There are also atelectatic changes within the lingula. Postsurgical changes are present involving the left breast with particular subcutaneous thickening as well as parenchymal density/scarring in the left breast. There is diffuse blastic metastasis of the skeletal structures involving the spine, ribs, manubrium and shoulders. IMPRESSION: 1. Overall no significant change compared to 07/23/2018. 2. Diffuse blastic metastasis of the skeletal structures are unchanged. 3. Medium-sized left pleural effusion with atelectatic changes in the lung bases and fibrotic changes in the right lower lobe with postsurgical changes of left breast. 4. Small nodular opacity within the mediastinum which is somewhat less apparent compared to 04/27/2018 and may be due to a small lymph node which is decreased in size
[2018-10-24 09:53] LABS: Alanine Aminotransferase 30 U/L (12-78); Albumin Level 2.6 gm/dL (3.4-5.0); Albumin/Globulin Ratio 0.6 (1.1-1.8); Alkaline Phosphatase 175 U/L (46-116); Anion Gap 11.4 mEq/L (5-15); Aspartate Amino Transferase 34 U/L (15-37); Bilirubin,Total 1.3 mg/dL (0.2-1.0); Blood Urea Nitrogen 7 mg/dL (7-18); Calcium 9.6 mg/dL (8.5-10.1); Carbon Dioxide 28 mmol/L (21.0-32.0); Chloride 104 mmol/L (98-107); Creatinine Clearance Estimated 139 mL/min (50-200); Creatinine,Serum 0.72 mg/dL (0.55-1.02); Estimated Glomerular Filt Rate 83 ml/min (>60); GFR (African American) 101 ML/MIN (>60); Globulin 4.5 gm/dl (1.3-3.2); Glucose 132 mg/dL (74-106); Potassium 3.4 mmoL/L (3.5-5.1); Sodium 140 mmol/L (136-145); Total Protein,Serum 7.1 gm/dL (6.4-8.2)
--- NOTE | 2018-10-24 10:15 | HMH.ITSHM ---
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 []LISINOPRIL,NAPROXEN
== END ==
PROVIDERS: PCP Internal Medicine Medical Oncology; Visit Provider Internal Medicine Medical Oncology
DX: C50.912 Malignant neoplasm of unspecified site of left female breast (principal); Z45.2 Encounter for adjustment and management of vascular access device
CPT/HCPCS: 71260; 74177; 80053; 85025; J1642; Q9967

== ENCOUNTER 2018-10-30 12:11 | Outpatient (CLI) | payer BC, SELFPAY ==
[2018-10-30 12:11] VITALS: BMI 37.3
[2018-10-30 12:47] LABS: Basophils % 0.7 % (0.1-2.0); Eosinophils # 0.1 K/mm3 (0.0-0.4); Eosinophils % 1.5 % (0.1-12.0); Hematocrit 26.7 % (37.0-47.0); Hemoglobin 8.3 g/dL (12.2-16.2); Lymphocytes # 1.4 K/mm3 (0.7-4.5); Lymphocytes % 32.6 % (10-50); Mean Corpuscular HGB Conc 31.1 g/dL (31.8-35.4); Mean Corpuscular Hemoglobin 35.2 pg (27.0-31.2); Mean Corpuscular Volume 113.4 fl (81-99); Mean Platelet Volume 7.7 fl (7.4-10.4); Monocytes # 0.5 K/mm3 (0.1-1.0); Monocytes % 10.3 % (1.7-9.3); Neutrophils # 2.4 K/mm3 (1.8-7.8); Neutrophils % 54.9 % (37.0-80.0); Platelet Count 119 K/mm3 (142-424); Red Blood Count 2.35 M/mm3 (4.20-5.40); Red Cell Distribution Width 18.1 % (11.5-17.5); White Blood Count 4.3 K/mm3 (4.8-10.8)
[2018-10-30 13:45] VITALS: BP 95/61; PULSE 80; RESP 18; TEMP 36.2; O2SAT 91
[2018-10-30 14:00] VITALS: BP 105/62; PULSE 80; RESP 18
[2018-10-30 14:15] VITALS: BP 103/56; PULSE 77; RESP 18
[2018-10-30 14:30] VITALS: BP 92/58; PULSE 78; RESP 18
[2018-10-30 14:45] VITALS: BP 107/61; PULSE 75; RESP 18
[2018-10-30 15:00] VITALS: BP 114/64; PULSE 77; RESP 18; TEMP 36.3
== END 2018-10-30 15:10 | disposition home or self-care (01) ==
LOC: INF 12:11
PROVIDERS: Visit Provider Internal Medicine Medical Oncology
DX: Z51.11 Encounter for antineoplastic chemotherapy (principal); C50.412 Malignant neoplasm of upper-outer quadrant of left female breast
CPT/HCPCS: 85025; 96413; 96417; J8501; J9045; J9201; Q0166

== ENCOUNTER 2018-10-31 14:44 | Outpatient (CLI) | payer BC, SELFPAY ==
[2018-10-31 15:11] VITALS: BP 126/74; PULSE 69; RESP 18; TEMP 36.4; O2SAT 98
== END 2018-10-31 15:18 | disposition home or self-care (01) ==
LOC: INF 14:44
PROVIDERS: Visit Provider Internal Medicine Medical Oncology
DX: Z51.11 Encounter for antineoplastic chemotherapy (principal); C50.412 Malignant neoplasm of upper-outer quadrant of left female breast
CPT/HCPCS: 96401; J2505

== ENCOUNTER 2018-11-20 08:25 | Outpatient (CLI) | payer BC, OTHER, SELFPAY ==
[2018-11-20 08:28] VITALS: BMI 35.2
[2018-11-20 09:00] LABS: Basophils % 0.3 % (0.1-2.0); Eosinophils # 0.1 K/mm3 (0.0-0.4); Eosinophils % 1.3 % (0.1-12.0); Hematocrit 30.7 % (37.0-47.0); Hemoglobin 9.3 g/dL (12.2-16.2); Lymphocytes # 1.2 K/mm3 (0.7-4.5); Lymphocytes % 26.2 % (10-50); Mean Corpuscular HGB Conc 30.3 g/dL (31.8-35.4); Mean Corpuscular Hemoglobin 34.4 pg (27.0-31.2); Mean Corpuscular Volume 113.7 fl (81-99); Monocytes # 0.4 K/mm3 (0.1-1.0); Monocytes % 8.6 % (1.7-9.3); Neutrophils # 2.9 K/mm3 (1.8-7.8); Neutrophils % 63.6 % (37.0-80.0); Platelet Count 91 K/mm3 (142-424); Red Cell Distribution Width 17.9 % (11.5-17.5); White Blood Count 4.5 K/mm3 (4.8-10.8)
[2018-11-20 09:09] LABS: Alanine Aminotransferase 32 U/L (12-78); Albumin Level 2.8 gm/dL (3.4-5.0); Albumin/Globulin Ratio 0.6 (1.1-1.8); Alkaline Phosphatase 266 U/L (46-116); Anion Gap 14.6 mEq/L (5-15); Aspartate Amino Transferase 45 U/L (15-37); Bilirubin,Total 1.1 mg/dL (0.2-1.0); Blood Urea Nitrogen 9 mg/dL (7-18); Calcium 9.6 mg/dL (8.5-10.1); Carbon Dioxide 27 mmol/L (21.0-32.0); Chloride 97 mmol/L (98-107); Creatinine Clearance Estimated 99 mL/min (50-200); Creatinine,Serum 0.97 mg/dL (0.55-1.02); Estimated Glomerular Filt Rate 59 ml/min (>60); GFR (African American) 71 ML/MIN (>60); Potassium 3.6 mmoL/L (3.5-5.1); Sodium 135 mmol/L (136-145); Total Protein,Serum 7.8 gm/dL (6.4-8.2)
[2018-11-20 09:24] LABS: Glucose 471 mg/dL (74-106)
[2018-11-20 11:25] VITALS: BP 149/88; PULSE 93; RESP 18
[2018-11-20 11:40] VITALS: BP 122/71; PULSE 89; RESP 18
[2018-11-20 11:55] VITALS: BP 101/62; PULSE 85; RESP 18
[2018-11-20 12:10] VITALS: BP 112/74; PULSE 85; RESP 18
[2018-11-20 12:25] VITALS: BP 104/67; PULSE 85; RESP 18
[2018-11-20 12:40] VITALS: BP 130/60; PULSE 86; RESP 18
== END 2018-11-20 12:55 | disposition home or self-care (01) ==
PROVIDERS: Visit Provider Internal Medicine Medical Oncology
DX: Z51.11 Encounter for antineoplastic chemotherapy (principal); C50.412 Malignant neoplasm of upper-outer quadrant of left female breast
CPT/HCPCS: 80053; 85025; 96413; 96417; J9045; J9201; Q0166

== ENCOUNTER 2018-11-21 12:43 | Outpatient (CLI) | payer BC, OTHER, SELFPAY ==
[2018-11-21 13:20] VITALS: BP 128/76; PULSE 87; RESP 18; TEMP 36.3; O2SAT 94
== END 2018-11-21 13:20 | disposition home or self-care (01) ==
LOC: INF 12:43
PROVIDERS: Visit Provider Internal Medicine Medical Oncology
DX: C50.412 Malignant neoplasm of upper-outer quadrant of left female breast (principal)
CPT/HCPCS: 96372

== ENCOUNTER 2018-12-11 09:57 | Outpatient (CLI) | payer OTHER, SELFPAY ==
[2018-12-11 09:58] VITALS: BMI 36.1
[2018-12-11 10:17] LABS: Basophils % 0.4 % (0.1-2.0); Eosinophils # 0.1 K/mm3 (0.0-0.4); Eosinophils % 1.7 % (0.1-12.0); Hematocrit 31.5 % (37.0-47.0); Hemoglobin 9.9 g/dL (12.2-16.2); Lymphocytes # 0.8 K/mm3 (0.7-4.5); Lymphocytes % 21.4 % (10-50); Mean Corpuscular HGB Conc 31.3 g/dL (31.8-35.4); Mean Corpuscular Hemoglobin 33.6 pg (27.0-31.2); Mean Corpuscular Volume 107.6 fl (81-99); Mean Platelet Volume 7.9 fl (7.4-10.4); Monocytes # 0.4 K/mm3 (0.1-1.0); Monocytes % 9.4 % (1.7-9.3); Neutrophils # 2.6 K/mm3 (1.8-7.8); Neutrophils % 67.1 % (37.0-80.0); Platelet Count 64 K/mm3 (142-424); Red Blood Count 2.93 M/mm3 (4.20-5.40); White Blood Count 3.8 K/mm3 (4.8-10.8)
[2018-12-11 10:32] LABS: Alanine Aminotransferase 30 U/L (12-78); Albumin Level 2.9 gm/dL (3.4-5.0); Albumin/Globulin Ratio 0.6 (1.1-1.8); Alkaline Phosphatase 339 U/L (46-116); Anion Gap 10.7 mEq/L (5-15); Aspartate Amino Transferase 49 U/L (15-37); Bilirubin,Total 1.5 mg/dL (0.2-1.0); Blood Urea Nitrogen 10 mg/dL (7-18); Calcium 9.8 mg/dL (8.5-10.1); Carbon Dioxide 31 mmol/L (21.0-32.0); Chloride 95 mmol/L (98-107); Creatinine Clearance Estimated 116 mL/min (50-200); Creatinine,Serum 0.84 mg/dL (0.55-1.02); Estimated Glomerular Filt Rate 69 ml/min (>60); GFR (African American) 84 ML/MIN (>60); Potassium 3.7 mmoL/L (3.5-5.1); Sodium 133 mmol/L (136-145); Total Protein,Serum 7.9 gm/dL (6.4-8.2)
[2018-12-11 10:34] LABS: Glucose 476 mg/dL (74-106)
== END 2018-12-11 11:00 | disposition home or self-care (01) ==
LOC: INF 09:57
PROVIDERS: Visit Provider Internal Medicine Medical Oncology
DX: C50.412 Malignant neoplasm of upper-outer quadrant of left female breast (principal)
CPT/HCPCS: 80053; 85025; J1642

== ENCOUNTER 2018-12-18 11:10 | Outpatient (CLI) | payer OTHER, SELFPAY ==
[2018-12-18 11:17] VITALS: BMI 34.7
[2018-12-18 11:36] LABS: Basophils % 0.6 % (0.1-2.0); Eosinophils # 0.1 K/mm3 (0.0-0.4); Eosinophils % 1.6 % (0.1-12.0); Hematocrit 33.3 % (37.0-47.0); Hemoglobin 10.5 g/dL (12.2-16.2); Lymphocytes # 0.9 K/mm3 (0.7-4.5); Lymphocytes % 26.6 % (10-50); Mean Corpuscular HGB Conc 31.5 g/dL (31.8-35.4); Mean Corpuscular Hemoglobin 33.1 pg (27.0-31.2); Mean Corpuscular Volume 105.2 fl (81-99); Mean Platelet Volume 7.9 fl (7.4-10.4); Monocytes # 0.2 K/mm3 (0.1-1.0); Monocytes % 6.7 % (1.7-9.3); Neutrophils # 2.2 K/mm3 (1.8-7.8); Neutrophils % 64.5 % (37.0-80.0); Platelet Count 108 K/mm3 (142-424); Red Blood Count 3.16 M/mm3 (4.20-5.40); Red Cell Distribution Width 17.5 % (11.5-17.5); White Blood Count 3.4 K/mm3 (4.8-10.8)
[2018-12-18 11:47] LABS: Alanine Aminotransferase 26 U/L (12-78); Albumin Level 2.5 gm/dL (3.4-5.0); Albumin/Globulin Ratio 0.5 (1.1-1.8); Alkaline Phosphatase 291 U/L (46-116); Anion Gap 12.7 mEq/L (5-15); Aspartate Amino Transferase 56 U/L (15-37); Bilirubin,Total 1.4 mg/dL (0.2-1.0); Blood Urea Nitrogen 6 mg/dL (7-18); Calcium 9.4 mg/dL (8.5-10.1); Carbon Dioxide 29 mmol/L (21.0-32.0); Chloride 97 mmol/L (98-107); Creatinine Clearance Estimated 135 mL/min (50-200); Creatinine,Serum 0.69 mg/dL (0.55-1.02); Estimated Glomerular Filt Rate 87 ml/min (>60); GFR (African American) 105 ML/MIN (>60); Globulin 5.1 gm/dl (1.3-3.2); Glucose 311 mg/dL (74-106); Potassium 3.7 mmoL/L (3.5-5.1); Sodium 135 mmol/L (136-145); Total Protein,Serum 7.6 gm/dL (6.4-8.2)
[2018-12-18 13:40] VITALS: BP 134/70; PULSE 86; RESP 18; TEMP 36.5; O2SAT 93
[2018-12-18 13:55] VITALS: BP 123/70; PULSE 88; RESP 18
[2018-12-18 14:10] VITALS: BP 131/74; PULSE 89; RESP 18
[2018-12-18 14:25] VITALS: BP 115/64; PULSE 90; RESP 18
[2018-12-18 14:40] VITALS: BP 121/67; PULSE 88; RESP 18
[2018-12-18 14:50] VITALS: BP 119/66; PULSE 89; RESP 18; O2SAT 99
== END 2018-12-18 15:05 | disposition home or self-care (01) ==
LOC: INF 11:14
PROVIDERS: Visit Provider Internal Medicine Medical Oncology
DX: Z51.11 Encounter for antineoplastic chemotherapy (principal); C50.412 Malignant neoplasm of upper-outer quadrant of left female breast
CPT/HCPCS: 80053; 85025; 96413; 96417; J9045; J9201; Q0166

== ENCOUNTER 2018-12-19 14:28 | Outpatient (CLI) | payer OTHER, SELFPAY ==
[2018-12-19 15:00] VITALS: BP 137/78; PULSE 84; RESP 18; TEMP 36.4; O2SAT 97
== END 2018-12-19 15:00 | disposition home or self-care (01) ==
LOC: INF 14:28
PROVIDERS: Visit Provider Internal Medicine Medical Oncology
DX: Z51.11 Encounter for antineoplastic chemotherapy (principal); C50.412 Malignant neoplasm of upper-outer quadrant of left female breast
CPT/HCPCS: 96372; J2505

== ENCOUNTER → 2019-01-02 09:54 | Outpatient (CLI) | payer OTHER, SELFPAY ==
[2019-01-02 09:15] VITALS: BMI 34.2
[2019-01-02 09:39] LABS: Basophils % 0.1 % (0.1-2.0); Eosinophils % 0.7 % (0.1-12.0); Hematocrit 32.1 % (37.0-47.0); Lymphocytes # 0.5 K/mm3 (0.7-4.5); Mean Corpuscular HGB Conc 31.1 g/dL (31.8-35.4); Mean Corpuscular Hemoglobin 33.8 pg (27.0-31.2); Mean Corpuscular Volume 108.5 fl (81-99); Mean Platelet Volume 9.6 fl (7.4-10.4); Monocytes # 0.4 K/mm3 (0.1-1.0); Monocytes % 9.8 % (1.7-9.3); Neutrophils # 3.2 K/mm3 (1.8-7.8); Neutrophils % 76.3 % (37.0-80.0); Red Blood Count 2.95 M/mm3 (4.20-5.40); Red Cell Distribution Width 18.5 % (11.5-17.5); White Blood Count 4.2 K/mm3 (4.8-10.8)
[2019-01-02 09:50] LABS: Alanine Aminotransferase 49 U/L (12-78); Albumin Level 2.8 gm/dL (3.4-5.0); Albumin/Globulin Ratio 0.6 (1.1-1.8); Alkaline Phosphatase 334 U/L (46-116); Anion Gap 11.8 mEq/L (5-15); Aspartate Amino Transferase 66 U/L (15-37); Bilirubin,Total 1.4 mg/dL (0.2-1.0); Blood Urea Nitrogen 7 mg/dL (7-18); Calcium 9.6 mg/dL (8.5-10.1); Carbon Dioxide 27 mmol/L (21.0-32.0); Chloride 99 mmol/L (98-107); Creatinine Clearance Estimated 126 mL/min (50-200); Creatinine,Serum 0.73 mg/dL (0.55-1.02); Estimated Glomerular Filt Rate 82 ml/min (>60); GFR (African American) 99 ML/MIN (>60); Globulin 4.7 gm/dl (1.3-3.2); Glucose 329 mg/dL (74-106); Potassium 3.8 mmoL/L (3.5-5.1); Sodium 134 mmol/L (136-145); Total Protein,Serum 7.5 gm/dL (6.4-8.2)
--- NOTE | 2019-01-02 10:04 | CT_ITS ---
CT abdomen pelvis w con CLINICAL INDICATION: Follow-up metastatic breast cancer. Patient receiving chemotherapy, follow up response to treatment ITS.REASON: BREAST CA ORDERING PHYSICIAN: Diana Davila MD PATIENT AGE: 58 years COMPARISON: None TECHNIQUE: Axial images obtained with sagittal and coronal reformats. All CT scans at the facility use one or more dose reduction, viz: automated exposure control, ma/kV adjustment per patient size (including targeted exams where dose is matched to indication, i.e. head), or iterative reconstruction technique. PROCEDURE: Oral Contrast: Redicat IV Contrast: 75 mL's Optiray 350 performed in conjunction with chest CT FINDINGS: Numerous hepatic hypodense lesions are once again noted consistent with diffuse hepatic metastasis. Liver margin is irregular suggesting cirrhosis. The diffuse hepatic lesions are not significant changed. There is splenomegaly. The pancreas, adrenal glands, and kidneys have an unremarkable appearance. There is a mild amount of ascites with perihepatic fluid and a small amount fluid in the pericolic gutter on the left. There is some mild haziness in the mesentery's which is nonspecific. A small amount fluid is present in the pelvis. Right adnexal calcification is present. No intestinal obstruction or free air. No evidence of appendicitis or diverticulitis. There is diffuse blastic metastatic foci noted with a few scattered lytic foci also present similar to the previous exam. IMPRESSION: 1. Overall no significant change in the diffuse hepatic and bony metastasis. 2. Cirrhotic appearing liver with ascites and splenomegaly
--- NOTE | 2019-01-02 10:04 | CT_ITS ---
CT chest w con HISTORY: Follow-up metastatic breast cancer. Patient receiving chemotherapy ITS.REASON: BREAST CA ORDERING PHYSICIAN: Diana Davila MD PATIENT AGE: 58 years COMPARISON: 10/24/2018 TECHNIQUE: Axial images obtained following the administration of 75 mL of Optiray 350 . Sagittal, and coronal reformatted images are also generated and reviewed. All CT scans at the facility use one or more dose reduction, viz: automated exposure control, ma/kV adjustment per patient size (including targeted exams where dose is matched to indication, i.e. head), or iterative reconstruction technique. FINDINGS: There are coronary artery calcifications. No mediastinal or hilar mass or adenopathy is evident. Normal heart size. No evidence of pericardial effusion. There are atelectatic/fibrotic changes in the lung bases is a 6 mm nodule left apex unchanged. A new parenchymal opacity is present in the left upper lobe centrally ill-defined measuring 12 mm a 4 mm noncalcified nodule present in the right upper lobe laterally axial image #37 is unchanged. There is a medium sized pleural effusion on the left. This is slightly decreased in size compared to previous study. There is a diffuse bony sclerotic metastasis not significant change. Small area of erosion involves the anterior aspect of the T11 thoracic vertebral superiorly unchanged. There is diffuse metastatic involvement of the sternum, ribs, spine, scapula,. IMPRESSION: 1. There is a new 13 mm ill-defined opacity in the left upper lobe centrally. This is nonspecific and could even be due an area of infiltrate or developing pulmonary nodule. Other nodular opacities are stable 2. No change diffuse skeletal metastasis. 3. Medium-sized left pleural effusion slightly decreased in volume
[2019-01-02 10:13] LABS: Platelet Count 40 K/mm3 (142-424)
== END ==
PROVIDERS: PCP Emergency Medicine; Visit Provider Internal Medicine Medical Oncology
DX: C50.412 Malignant neoplasm of upper-outer quadrant of left female breast (principal)
CPT/HCPCS: 71260; 74177; 80053; 85025; J1642; Q9967

== ENCOUNTER 2019-01-08 09:30 | Outpatient (CLI) | payer OTHER, SELFPAY ==
[2019-01-08 09:39] VITALS: BMI 33.7
[2019-01-08 09:57] LABS: Basophils % 0.1 % (0.1-2.0); Eosinophils % 0.8 % (0.1-12.0); Hematocrit 28.7 % (37.0-47.0); Hemoglobin 9.3 g/dL (12.2-16.2); Lymphocytes # 0.8 K/mm3 (0.7-4.5); Mean Corpuscular HGB Conc 32.2 g/dL (31.8-35.4); Mean Corpuscular Hemoglobin 33.1 pg (27.0-31.2); Mean Corpuscular Volume 102.6 fl (81-99); Mean Platelet Volume 8.6 fl (7.4-10.4); Monocytes # 0.3 K/mm3 (0.1-1.0); Monocytes % 8.4 % (1.7-9.3); Neutrophils # 2.3 K/mm3 (1.8-7.8); Neutrophils % 67.8 % (37.0-80.0); Platelet Count 93 K/mm3 (142-424); Red Cell Distribution Width 18.1 % (11.5-17.5); White Blood Count 3.5 K/mm3 (4.8-10.8)
[2019-01-08 10:09] LABS: Alanine Aminotransferase 33 U/L (12-78); Albumin Level 2.4 gm/dL (3.4-5.0); Albumin/Globulin Ratio 0.5 (1.1-1.8); Alkaline Phosphatase 353 U/L (46-116); Anion Gap 12.9 mEq/L (5-15); Aspartate Amino Transferase 69 U/L (15-37); Bilirubin,Total 0.9 mg/dL (0.2-1.0); Blood Urea Nitrogen 9 mg/dL (7-18); Calcium 9.3 mg/dL (8.5-10.1); Carbon Dioxide 26 mmol/L (21.0-32.0); Chloride 98 mmol/L (98-107); Creatinine Clearance Estimated 142 mL/min (50-200); Creatinine,Serum 0.64 mg/dL (0.55-1.02); Estimated Glomerular Filt Rate 95 ml/min (>60); GFR (African American) 115 ML/MIN (>60); Glucose 340 mg/dL (74-106); Potassium 3.9 mmoL/L (3.5-5.1); Sodium 133 mmol/L (136-145); Total Protein,Serum 7.4 gm/dL (6.4-8.2)
[2019-01-08 13:10] VITALS: BP 124/70; PULSE 93; RESP 18; TEMP 36.6; O2SAT 97
[2019-01-08 13:25] VITALS: BP 105/61; PULSE 87; RESP 18
[2019-01-08 13:40] VITALS: BP 116/44; PULSE 86; RESP 18
[2019-01-08 13:55] VITALS: BP 111/57; PULSE 88; RESP 16
[2019-01-08 14:10] VITALS: BP 114/63; PULSE 84; RESP 16
[2019-01-08 14:25] VITALS: BP 123/69; PULSE 89; RESP 16
== END 2019-01-08 14:35 | disposition home or self-care (01) ==
LOC: INF 09:37
PROVIDERS: Visit Provider Internal Medicine Medical Oncology
DX: Z51.11 Encounter for antineoplastic chemotherapy (principal); C50.412 Malignant neoplasm of upper-outer quadrant of left female breast
CPT/HCPCS: 80053; 85025; 96413; 96417; J8501; J9045; J9201; Q0166

== ENCOUNTER 2019-01-09 14:40 | Outpatient (CLI) | payer OTHER, SELFPAY ==
[2019-01-09 14:49] VITALS: BP 112/66; PULSE 82; RESP 18; TEMP 36.6; O2SAT 95
== END 2019-01-09 14:56 | disposition home or self-care (01) ==
LOC: INF 14:46
PROVIDERS: Visit Provider Internal Medicine Medical Oncology
DX: C50.412 Malignant neoplasm of upper-outer quadrant of left female breast (principal)
CPT/HCPCS: 96372; J2505

== ENCOUNTER 2019-01-13 09:20 | Outpatient (RCR) | payer OTHER, SELFPAY ==
--- NOTE | 2019-01-13 10:15 | [facility]H.PTOPEV ---
PT Outpatient Evaluation Rehab PT Outpatient Evaluation Start: 01/13/19 09:50 Freq: Status: Active Protocol: Document 01/13/19 09:51 [email or web address] (Rec: 01/13/19 10:14 PHOZION [id number]) Electronically Signed By Javy Olson, PT 01/13/19 09:51 Outpatient Therapy Subjective History Subjective History Pt is a 58 yowf with complaints of generalized weakness and LBP. Pt reports pain is around L5-S1 and is 0/ 10 at the moment, and at worst it is 7/10. Pt reports pain began around 6 months ago for unknown reasons. Pt reports pain is aggravated by bending, standing up and sitting for too long. Pain is relieved with medication (either tylenol or morphine) and rest. Pt has a history of breast cancer, liver cancer, and bone cancer since July of 2016. Pt also states having HTN and history of mini heart attack months ago. Pt reports having lumpectomy and multiple C-sections. Chief Complaint Pain Weakness Symptom Type Ache Dull Symptoms Relieved By Rest/Positioning OTC Meds Prescription Meds Symptoms Aggravated By Sitting Standing Bending/Stooping Physical Activity Walking Prior Functional Limitations None Current Functional Limitations None Symptom Description Intermittent Level of pain today (0-10) 0 Pain scale - at its best (0-10) 0 Pain scale - at its worst (0-10) 7 Shoulder/Elbow Eval Shoulder Objective Measurements Shoulder ROM Bilateral Shoulder Abduction Active Range of WFL Motion (degrees) Shoulder Flexion Active Range of Motion WFL (degrees) Query Text: Shoulder External Rotation Active Range WFL of Motion (degrees) Shoulder Internal Rotation Active Range WFL of Motion (degrees) Shoulder Extension Active Range of WFL Motion (degrees) Shoulder MMT Middle Trapezius Strength Grade 3+ Fair+ Upper Trapezius/Levator Scapulae 3+ Fair+ Shoulder Abdu
== END 2019-01-13 09:25 | disposition home or self-care (01) ==
LOC: PT 09:20
PROVIDERS: Visit Provider Internal Medicine Medical Oncology
DX: C50.412 Malignant neoplasm of upper-outer quadrant of left female breast (principal)
CPT/HCPCS: 97163

== ENCOUNTER → 2019-01-21 13:47 | Outpatient (CLI) | payer OTHER, SELFPAY ==
[2019-01-23 05:25] LABS: Creatinine, Urine 90.8 mg/dL (Not Estab.); Microalbumin, Urine 8.4 ug/mL (Not Estab.)
== END ==
PROVIDERS: Visit Provider Emergency Medicine
DX: E11.65 Type 2 diabetes mellitus with hyperglycemia (principal); Z79.84 Long term (current) use of oral hypoglycemic drugs
CPT/HCPCS: 82043; 82570

== ENCOUNTER 2019-01-29 10:02 | Outpatient (CLI) | payer OTHER, SELFPAY ==
[2019-01-29 10:04] VITALS: BMI 32.4
[2019-01-29 10:26] LABS: Basophils % 0.4 % (0.1-2.0); Eosinophils # 0.1 K/mm3 (0.0-0.4); Eosinophils % 1.2 % (0.1-12.0); Hematocrit 28.9 % (37.0-47.0); Hemoglobin 9.2 g/dL (12.2-16.2); Lymphocytes % 17.8 % (10-50); Mean Corpuscular HGB Conc 31.6 g/dL (31.8-35.4); Mean Corpuscular Hemoglobin 32.5 pg (27.0-31.2); Mean Corpuscular Volume 102.7 fl (81-99); Mean Platelet Volume 8.8 fl (7.4-10.4); Monocytes # 0.5 K/mm3 (0.1-1.0); Monocytes % 8.1 % (1.7-9.3); Neutrophils # 4.1 K/mm3 (1.8-7.8); Neutrophils % 72.5 % (37.0-80.0); Platelet Count 87 K/mm3 (142-424); Red Blood Count 2.82 M/mm3 (4.20-5.40); Red Cell Distribution Width 19.2 % (11.5-17.5); White Blood Count 5.6 K/mm3 (4.8-10.8)
[2019-01-29 10:36] LABS: Alanine Aminotransferase 46 U/L (12-78); Albumin Level 2.7 gm/dL (3.4-5.0); Albumin/Globulin Ratio 0.5 (1.1-1.8); Alkaline Phosphatase 415 U/L (46-116); Anion Gap 16.9 mEq/L (5-15); Aspartate Amino Transferase 108 U/L (15-37); Bilirubin,Total 1.4 mg/dL (0.2-1.0); Blood Urea Nitrogen 9 mg/dL (7-18); Calcium 9.9 mg/dL (8.5-10.1); Carbon Dioxide 26 mmol/L (21.0-32.0); Chloride 97 mmol/L (98-107); Creatinine Clearance Estimated 118 mL/min (50-200); Creatinine,Serum 0.77 mg/dL (0.55-1.02); Estimated Glomerular Filt Rate 77 ml/min (>60); GFR (African American) 93 ML/MIN (>60); Globulin 5.4 gm/dl (1.3-3.2); Glucose 262 mg/dL (74-106); Potassium 3.9 mmoL/L (3.5-5.1); Sodium 136 mmol/L (136-145); Total Protein,Serum 8.1 gm/dL (6.4-8.2)
[2019-01-29 11:42] VITALS: BP 111/70; PULSE 93; RESP 20; TEMP 36.5; O2SAT 98
[2019-01-29 12:12] VITALS: BP 118/66; PULSE 94; RESP 20; O2SAT 97
[2019-01-29 12:42] VITALS: BP 110/61; PULSE 89; RESP 20; O2SAT 98
[2019-01-29 13:10] VITALS: BP 115/64; PULSE 91; RESP 20; O2SAT 98
== END 2019-01-29 13:15 | disposition home or self-care (01) ==
LOC: INF 10:02
PROVIDERS: Visit Provider Internal Medicine Medical Oncology
DX: Z51.11 Encounter for antineoplastic chemotherapy (principal); C50.412 Malignant neoplasm of upper-outer quadrant of left female breast
CPT/HCPCS: 80053; 85025; 96413; 96417; J8501; J9045; J9201; Q0166

== ENCOUNTER 2019-01-30 12:35 | Outpatient (CLI) | payer OTHER, SELFPAY ==
[2019-01-30 12:52] VITALS: BP 134/69; PULSE 83; RESP 18; TEMP 36.6; O2SAT 96
== END 2019-01-30 12:57 | disposition home or self-care (01) ==
PROVIDERS: Visit Provider Internal Medicine Medical Oncology
DX: Z51.11 Encounter for antineoplastic chemotherapy (principal); C50.412 Malignant neoplasm of upper-outer quadrant of left female breast
CPT/HCPCS: 96372; 96401; J2505

== ENCOUNTER 2019-02-19 09:30 | Outpatient (CLI) | payer OTHER, SELFPAY ==
[2019-02-19 09:31] VITALS: BMI 32.4
[2019-02-19 09:53] LABS: Basophils % 0.2 % (0.1-2.0); Eosinophils # 0.1 K/mm3 (0.0-0.4); Eosinophils % 2.5 % (0.1-12.0); Hematocrit 25.7 % (37.0-47.0); Hemoglobin 8.3 g/dL (12.2-16.2); Lymphocytes # 1.1 K/mm3 (0.7-4.5); Lymphocytes % 23.1 % (10-50); Mean Corpuscular HGB Conc 32.4 g/dL (31.8-35.4); Mean Corpuscular Volume 101.9 fl (81-99); Mean Platelet Volume 8.3 fl (7.4-10.4); Monocytes # 0.4 K/mm3 (0.1-1.0); Monocytes % 8.5 % (1.7-9.3); Neutrophils # 3.2 K/mm3 (1.8-7.8); Neutrophils % 65.7 % (37.0-80.0); Platelet Count 68 K/mm3 (142-424); Red Blood Count 2.52 M/mm3 (4.20-5.40); Red Cell Distribution Width 20.4 % (11.5-17.5); White Blood Count 4.9 K/mm3 (4.8-10.8)
[2019-02-19 10:12] LABS: Alanine Aminotransferase 34 U/L (12-78); Albumin Level 2.3 gm/dL (3.4-5.0); Albumin/Globulin Ratio 0.5 (1.1-1.8); Alkaline Phosphatase 327 U/L (46-116); Anion Gap 13.5 mEq/L (5-15); Aspartate Amino Transferase 101 U/L (15-37); Bilirubin,Total 1.1 mg/dL (0.2-1.0); Blood Urea Nitrogen 9 mg/dL (7-18); Calcium 9.2 mg/dL (8.5-10.1); Carbon Dioxide 27 mmol/L (21.0-32.0); Chloride 101 mmol/L (98-107); Creatinine Clearance Estimated 110 mL/min (50-200); Creatinine,Serum 0.79 mg/dL (0.55-1.02); Estimated Glomerular Filt Rate 74 ml/min (>60); GFR (African American) 90 ML/MIN (>60); Glucose 168 mg/dL (74-106); Potassium 3.5 mmoL/L (3.5-5.1); Sodium 138 mmol/L (136-145); Total Protein,Serum 7.3 gm/dL (6.4-8.2)
== END 2019-02-19 10:50 | disposition home or self-care (01) ==
LOC: INF 09:30
PROVIDERS: Visit Provider Internal Medicine Medical Oncology
DX: C50.412 Malignant neoplasm of upper-outer quadrant of left female breast (principal)
CPT/HCPCS: 80053; 85025; J1642

== ENCOUNTER 2019-02-26 08:30 | Outpatient (CLI) | payer OTHER, SELFPAY ==
[2019-02-26 08:36] VITALS: BMI 32.4
[2019-02-26 09:03] LABS: Basophils % 0.3 % (0.1-2.0); Eosinophils # 0.1 K/mm3 (0.0-0.4); Eosinophils % 1.7 % (0.1-12.0); Hematocrit 25.3 % (37.0-47.0); Hemoglobin 8.1 g/dL (12.2-16.2); Lymphocytes # 0.8 K/mm3 (0.7-4.5); Lymphocytes % 14.6 % (10-50); Mean Corpuscular Hemoglobin 32.8 pg (27.0-31.2); Mean Corpuscular Volume 102.7 fl (81-99); Mean Platelet Volume 8.2 fl (7.4-10.4); Monocytes # 0.4 K/mm3 (0.1-1.0); Monocytes % 6.9 % (1.7-9.3); Neutrophils # 4.3 K/mm3 (1.8-7.8); Neutrophils % 76.6 % (37.0-80.0); Platelet Count 65 K/mm3 (142-424); Red Blood Count 2.47 M/mm3 (4.20-5.40); Red Cell Distribution Width 19.9 % (11.5-17.5); White Blood Count 5.7 K/mm3 (4.8-10.8)
[2019-02-26 09:07] LABS: Alanine Aminotransferase 33 U/L (12-78); Albumin/Globulin Ratio 0.4 (1.1-1.8); Alkaline Phosphatase 406 U/L (46-116); Anion Gap 16.9 mEq/L (5-15); Aspartate Amino Transferase 116 U/L (15-37); Bilirubin,Total 2.4 mg/dL (0.2-1.0); Blood Urea Nitrogen 8 mg/dL (7-18); Calcium 9.4 mg/dL (8.5-10.1); Carbon Dioxide 25 mmol/L (21.0-32.0); Chloride 98 mmol/L (98-107); Creatinine Clearance Estimated 106 mL/min (50-200); Creatinine,Serum 0.82 mg/dL (0.55-1.02); Estimated Glomerular Filt Rate 71 ml/min (>60); GFR (African American) 86 ML/MIN (>60); Globulin 5.4 gm/dl (1.3-3.2); Glucose 187 mg/dL (74-106); Sodium 137 mmol/L (136-145); Total Protein,Serum 7.4 gm/dL (6.4-8.2)
[2019-02-26 09:09] LABS: Potassium 2.9 mmoL/L (3.5-5.1)
== END 2019-02-26 09:55 | disposition home or self-care (01) ==
LOC: INF 08:35
PROVIDERS: Visit Provider Internal Medicine Medical Oncology
DX: C50.412 Malignant neoplasm of upper-outer quadrant of left female breast (principal); I74.4 Embolism and thrombosis of arteries of extremities, unspecified
CPT/HCPCS: 80053; 85025; J1642

== ENCOUNTER → 2019-03-03 14:25 | Outpatient (CLI) | payer OTHER, SELFPAY ==
[2019-03-03 14:33] VITALS: BMI 33.7
[2019-03-03 14:45] VITALS: BP 116/71; PULSE 118; RESP 20; TEMP 36.4; O2SAT 91
[2019-03-03 14:52] LABS: Basophils % 0.4 % (0.1-2.0); Eosinophils # 0.1 K/mm3 (0.0-0.4); Eosinophils % 1.8 % (0.1-12.0); Hematocrit 26.5 % (37.0-47.0); Hemoglobin 8.5 g/dL (12.2-16.2); Lymphocytes # 1.4 K/mm3 (0.7-4.5); Lymphocytes % 17.4 % (10-50); Mean Corpuscular HGB Conc 32.1 g/dL (31.8-35.4); Mean Corpuscular Hemoglobin 32.3 pg (27.0-31.2); Mean Corpuscular Volume 100.4 fl (81-99); Monocytes # 0.4 K/mm3 (0.1-1.0); Monocytes % 5.4 % (1.7-9.3); Platelet Count 60 K/mm3 (142-424); Red Blood Count 2.63 M/mm3 (4.20-5.40)
[2019-03-03 15:13] LABS: Alanine Aminotransferase 42 U/L (12-78); Albumin Level 1.8 gm/dL (3.4-5.0); Albumin/Globulin Ratio 0.3 (1.1-1.8); Alkaline Phosphatase 460 U/L (46-116); Anion Gap 16.8 mEq/L (5-15); Aspartate Amino Transferase 179 U/L (15-37); Bilirubin,Total 4.9 mg/dL (0.2-1.0); Blood Urea Nitrogen 11 mg/dL (7-18); Calcium 9.4 mg/dL (8.5-10.1); Carbon Dioxide 24 mmol/L (21.0-32.0); Chloride 95 mmol/L (98-107); Creatinine Clearance Estimated 109 mL/min (50-200); Creatinine,Serum 0.83 mg/dL (0.55-1.02); Estimated Glomerular Filt Rate 70 ml/min (>60); GFR (African American) 85 ML/MIN (>60); Globulin 5.9 gm/dl (1.3-3.2); Glucose 66 mg/dL (74-106); Potassium 3.8 mmoL/L (3.5-5.1); Sodium 132 mmol/L (136-145); Total Protein,Serum 7.7 gm/dL (6.4-8.2)
[2019-03-03 15:18] LABS: Ammonia 75 umol/L (19-54)
--- NOTE | 2019-03-03 15:51 | PC.NURSE ---
report called at this time to er, spoke with er physician. updated report of pt condition given as well as current lab values. pt taken to the er at this time per wc with spouse and daughter.
== END ==
PROVIDERS: Visit Provider Internal Medicine Medical Oncology
DX: C50.412 Malignant neoplasm of upper-outer quadrant of left female breast (principal)
CPT/HCPCS: 80053; 82140; 85025

== ENCOUNTER 2019-03-03 15:47 | Inpatient (IN) ==
[2019-03-03 16:16] LABS: Basophils % 0.3 % (0.1-2.0); Eosinophils # 0.2 K/mm3 (0.0-0.4); Eosinophils % 1.9 % (0.1-12.0); Hemoglobin 8.7 g/dL (12.2-16.2); Lymphocytes # 1.6 K/mm3 (0.7-4.5); Mean Corpuscular HGB Conc 32.4 g/dL (31.8-35.4); Mean Corpuscular Hemoglobin 32.3 pg (27.0-31.2); Mean Corpuscular Volume 99.7 fl (81-99); Mean Platelet Volume 7.7 fl (7.4-10.4); Monocytes # 0.5 K/mm3 (0.1-1.0); Monocytes % 5.4 % (1.7-9.3); Neutrophils # 6.5 K/mm3 (1.8-7.8); Neutrophils % 74.4 % (37.0-80.0); Platelet Count 64 K/mm3 (142-424); Red Blood Count 2.71 M/mm3 (4.20-5.40); Red Cell Distribution Width 20.2 % (11.5-17.5); White Blood Count 8.8 K/mm3 (4.8-10.8)
--- NOTE | 2019-03-03 16:19 | Emergency Department Note ---
ED Disposition Clinical Impression: Hepatic encephalopathy, Elevated liver enzymes, Metastatic breast cancer, Hypoglycemia Disposition: Admitted as Observation Condition on Discharge: Fair - Critical Care Critical Care Time: No Attestation: On 03/03/19, the high probability of a clinically significant, sudden or life threatening deterioration of the following system(s) required my full and direct attention, intervention and personal management. The time I documented below is in addition to time spent performing reported procedures but includes the following listed in this critical care notation. Medical Decision Making - Cooper Inquiry Pt receiving controlled substance: No Vital Signs: 03/03/19 15:56 03/03/19 16:19 03/03/19 18:04 Temperature 98.1 F Temperature Source Oral Pulse Rate Pulse Rate [Left Radial] 114 H 110 H 110 H Respiratory Rate 20 20 Blood Pressure Blood Pressure [Right Arm] 111/59 L 142/80 H 120/69 Blood Pressure Mean [Right Arm] 76 100 86 Blood Pressure Source [Right Arm] Automatic Cuff Automatic Cuff Automatic Cuff Blood Pressure Position [Right Arm] Sitting Sitting Supine 02 Sat by Pulse Oximetry 94 L 94 L 93 L Oxygen Delivery Method Room Air Room Air Room Air 03/03/19 18:56 03/03/19 19:36 03/03/19 19:40 Temperature 98.1 F Temperature Source Oral Pulse Rate 111 H Pulse Rate [Left Radial] 89 111 H Respiratory Rate 20 17 Blood Pressure 126/81 Blood Pressure [Right Arm] 135/80 126/81 Blood Pressure Mean [Right Arm] 98 96 Blood Pressure Source [Right Arm] Automatic Cuff Blood Pressure Position [Right Arm] Supine 02 Sat by Pulse Oximetry 93 L 92 L Oxygen Delivery Method Room Air Room Air Room Air - Lab Data Lab Results 03/03/19 16:00: Sodium 131 L, Potassium 3.9, Chloride 95 L, Carbon Dioxide 24, Anion Gap 15.9 H, BUN 10, Creatinine 0.83, Estimated Creat Clear 109, Estimated GFR 70, Est GFR ( Amer) 85, Glucose 71 L, Calcium 9.5, Total Bilirubin 4.9 H, AST 179 H, ALT 39, Alkaline Phosphatase 469 H, Total Protein 7.9, Albumin 1.9 L, Globulin 6.0 H, Albumin/Globulin Ratio 0.3 L 03/03/19 16:00: Lactate 4.3 H 03/03/19 16:00: Ammonia 80 H 03/03/19 16:00: WBC 8.8, RBC 2.71 L, Hgb 8.7 L, Hct 27.0 L, MCV 99.7 H, MCH 32.3 H, MCHC 32.4, RDW 20.2 H, Plt Count 64 L, MPV 7.7, Neut % (Auto) 74.4, Lymph % (Auto) 18.0, [place] % (Auto) 5.4, Eos % (Auto) 1.9, Baso % (Auto) 0.3, Neut # (Auto) 6.5, Lymph # (Auto) 1.6, [place] # (Auto) 0.5, Eos # (Auto) 0.2, Baso # (A uto) 0.0 Result diagrams: 03/03/19 16:00 03/03/19 16:00 Orders (Tests/Meds): ED MEDICATIONS Generic Name Dose Route Start Last Admin Trade Name Freq PRN Reason Stop Dose Admin Amlodipine Besylate 5 mg 03/04/19 09:00 Norvasc 5mg Tablet PO 04/03/19 08:59 DAILY [facility] Sodium Chloride 1,000 mls @ 150 mls/hr 03/03/19 19:51 Sod Chlor 0.9% 1000ml Bag IV 04/02/19 16:44 .Q6H40M [facility] Insulin Human Lispro 0 unit 03/03/19 21:00 Humalog 100 Units/Ml 3ml Vial (Ssi) SQ 04/02/19 20:59 ACHS [place] Protocol Ioversol 75 ml 03/03/19 18:44 03/03/19 18:45 Rad-Optiray 350 100ml Vial IV 03/03/19 18:45 75 ml ONCE ONE Administration Protocol Lactulose 20 gm 03/03/19 21:00 Chronulac 20gm/30ml Udc PO 04/02/19 16:59 QID [facility] Metoprolol Tartrate 25 mg 03/03/19 21:00 Lopressor 25mg Tablet PO 04/02/19 20:59 BID [place] Morphine Sulfate 15 mg 03/03/19 21:00 Ms Contin 15mg Extended Release Tablet PO 04/02/19 20:59 Q12 [place] Morphine Sulfate 4 mg 03/03/19 19:51 Morphine 2mg/Ml Syringe IV 04/02/19 19:50 Q4HP PRN Severe Pain Non-Formulary Medication 1 tab 03/04/19 09:00 Ca/D3/Mag#11/Zinc/Jail Guard/Jimmy/Bor [Caltrate 600+D Plus Tablet] PO 04/03/19 08:59 DAILY [place] Non-Formulary Medication 1,000 unit 03/04/19 09:00 Cholecalciferol (Vitamin D3) [Vitamin D3 1,000 Unit Cap] PO 04/03/19 08:59 DAILY [place] Non-Formulary Medication 400 mg 03/04/19 09:00 Magnesium Oxide [Magnesium] PO 04/03/19 08:59 DAILY [place] Non-Formulary Medication 20 mg 03/04/19 09:00 Omeprazole [Omeprazole 20mg Capsule] PO 04/03/19 08:59 DAILY [facility] Non-Formulary Medication 1,500 mg 03/03/19 19:51 Levetiracetam [Levetiracetam] PO 04/02/19 19:50 Q12H [facility] Potassium Chloride 20 meq 03/04/19 09:00 Klor-Con 20meq Tablet PO 04/03/19 08:59 DAILY [facility] Promethazine HCl 25 mg 03/03/19 19:51 Phenergan 25mg Tablet PO 04/02/19 19:50 TID PRN Nausea And Vomiting Sodium Chloride 10 ml 03/03/19 18:44 03/03/19 18:45 Rad-Saline Flush 10ml Syringe IV 03/03/19 18:45 10 ml ONCE ONE Administration Discontinued Medications Generic Name Dose Route Start Last Admin Trade Name Freq PRN Reason Stop Dose Admin Dextrose 50 ml 03/03/19 16:32 03/03/19 16:45 Dextrose 50% 50ml Syringe IVP 03/03/19 16:33 50 ml ONCE ONE Administration Diatrizoate Meglum/Diatrizoate Sod 30 ml 03/03/19 16:52 03/03/19 16:56 Gastrografin 66%-10% 30ml PO 03/03/19 16:53 30 ml ONCE ONE Administration Sodium Chloride 1,000 mls @ 150 mls/hr 03/03/19 16:45 03/03/19 16:46 Sod Chlor 0.9% 1000ml Bag IV 04/02/19 16:44 150 mls/hr .Q6H40M [place] Administration Lactulose 20 gm 03/03/19 17:00 03/03/19 16:46 Chronulac 20gm/30ml Udc PO 04/02/19 16:59 20 gm QID [place] Administration Morphine Sulfate 4 mg 03/03/19 19:20 03/03/19 19:35 Morphine 4mg/Ml Syringe IV 03/03/19 19:21 4 mg ONCE ONE Administration Ondansetron HCl 4 mg 03/03/19 19:21 03/03/19 19:36 Zofran 4mg/2ml Vial IV 03/03/19 19:22 4 mg ONCE ONE Administration ORDERS Category Date Time Status CT abdomen pelvis w con Stat Cat Scan 03/03/19 16:[address] chest w con Stat Cat Scan 03/03/19 16:40 Taken - CT Data CT Scan: Abdomen, Pelvis, Chest Time Received: 19:[address] Reviewed: Yes: I have viewed the radiologist's interpretation Findings Narrative: CT scan interpreted by [facility] radiologist. Faxed report received and reviewed: Chest: Small to moderate sized left pleural effusion which appears roughly similar to prior. Left greater than right basilar likely atelectasis. Multivessel calcified coronary artery disease. Incompletely imaged upper abdomen with cirrhosis or pseudocirrhosis of the liver and small to moderate upper abdominal ascites, increased from 01/02/2019. Other sequelae of metastatic disease and portal hypertension. Abdomen/pelvis: Cirrhosis versus pseudocirrhosis. Ascites. Metastatic breast cancer. Sequelae of portal hypertension. - Physician Consults Physician Consulted: Giovanni Time: 16:41 Reason -: Other (Oncology) Comment/Response: Requests CT scan of the chest/abdomen/pelvis with IV and oral contrast. Lactulose. Admit and she will consult and will see tomorrow. Additional Consult: Ele Time: 16:53 Reason -: Admission Comment/Response: Agrees to admit the patient to the hospital. We discussed the patient's clinical information, including history, exam, laboratory and radiology results and ED course. Per hospital procedure, I will write temporary bridge inpatient orders on the patient. Specific orders requested by the admitting physician: As per Dr. Davila General Adult HPI - General Chief complaint: Altered Mental Status Stated complaint: Elevated liver Enzymes Time Seen by Provider: 03/03/19 16:18 Mode of Arrival: Wheelchair Limitations: No Limitations Description of Symptoms (Recalled from ER Triage Doc. by RN): PT was being seen in infusion for an injection, hx of breast ca and started being confused and was sent down for further scans stated per her daughter. - History of Present Illness HPI narrative: The patient was brought down from the infusion department. She has metastatic breast cancer. Family states that Dr. Davila, her oncologist, wanted her brought down. She was there to get an injection of Faslodex, but this was held due to abnormal labs. She also has not had chemotherapy in 1 month because of low blood counts. Family states she has elevated bilirubin and alkaline phosphatase today and low blood sugar. Family states that she has generalized weakness for the past few days along with increased confusion. Poor appetite, but drinking fluids and urinating well. No vomiting or diarrhea. No fever. She also fell last night and hurt her right knee, but is able to walk. - Related Data Home Medications Medication Instructions Recorded Confirmed calcium 600 mg-D3 800 unit-mag11 1 tab PO DAILY 04/11/18 03/03/19 50 cj-ktof-lhloqb-jimmy-s.borat tablet Cholecalciferol (Vitamin D3) 1,000 unit PO DAILY 05/20/18 03/03/19 [Vitamin D3 1,000 Unit Cap] Morphine Sulfate [MS Contin 15mg 15 mg PO Q12 05/29/18 03/03/19 EXTENDED RELEASE tablet] Ertugliflozin Pidolate [Steglatro] 5 mg PO DAILY 03/03/19 03/03/19 Potassium Chloride [Klor-con 20 20 meq PO DAILY 03/03/19 03/03/19 mEq tablet] Previous Rx's Medication Instructions Recorded metoprolol tartrate 25 mg tablet 25 mg PO BID #180 tab 09/08/18 promethazine 25 mg tablet 25 mg PO TID PRN #90 tab 12/18/18 amlodipine 5 mg tablet 5 mg PO DAILY #90 tab 01/09/19 omeprazole 20 mg capsule,delayed 20 mg PO DAILY #90 cap 01/09/19 release glipizide 10 mg tablet 10 mg PO BID #60 tab 02/02/19 levetiracetam 750 mg tablet 1,500 mg PO Q12H #360 tab 02/02/19 magnesium oxide 400 mg capsule 400 mg PO DAILY #90 cap 02/02/19 metformin 1,000 mg tablet 1,000 mg PO BID 90 Days #180 tab 02/02/19 Allergies Allergy/AdvReac Type Severity Reaction Status Date / Time lisinopril [LISINOPRIL] Allergy Severe Anaphylaxis Verified 02/26/19 09:16 naproxen [From ALEVE] Allergy Mild Rash Verified 02/26/19 09:16 [facility] History - Hepatitis A Screen Drug use history?: No High risk sexual behaviors?: No History of sexually transmitted infection?: No Currently employed?: No Childcare worker?: No Do you have indoor plumbing?: Yes Do you have electricity?: Yes Attestation statement:: This patient has been screened for Hepatitis A risk factors. I have reviewed the patient's past medical history: Yes Medical History: Reports:: Asthma, Cancer, Diabetes Mellitus Type 2, Gastroesophageal Reflux Disease(GERD), Hyperlipidemia, Hypertension, Myocardial Infarction, Seizures Denies:: Diabetes Mellitus Type 1, Internal Pacemaker, MRSA Other Medical History: Reports: Anemia, Chemotherapy, Other. Denies: Blood Transfusion Reaction Laterality Cases: Left: Lumpectomy, Bilateral: Breast Biopsy, Carpal Tunnel Release Other Surgeries: Yes: Angioplasty, Cancer Surgery, Cardiac Catheterization. No: Pacemaker Amputation: No Fractures: No Comment: Carpal Tunnel, Central line - Social History Smoking Status: Former smoker Tobacco Type: cigarettes # Packs/Day (cigarettes): 1 #Yrs smoked (if former smoker): 40 Smoking End Date: 2015 Alcohol Intake: never Alcohol Intake Frequency:: other Substance Use Type: denies use Occupational Status: employed Housing: house Household Members: spouse - Psychiatric History Expresses thoughts of harming self/others: None Suicide Plan Description: No Plan Family Hx:: Cancer ROS Obtained: Yes All systems reviewed & no additional complaints - Constitutional Constitutional: Reports fatigue, Denies fever(s), Reports poor appetite - Gastrointestinal Gastrointestingal: Reports: abdominal pain. Denies: diarrhea, vomiting - Genitourinary Female Genitourinary: Denies difficulty voiding - Musculoskeletal Musculoskeletal: Reports joint pain (Both knees) - Neurologic Neurologic: Reports confusion Physical Exam - General General appearance: alert, in no apparent distress - Head Head exam: atraumatic, normocephalic - Eye Eye exam: Present: normal appearance, EOMI - ENT ENT exam: Present: mucous membranes moist - Neck Neck exam: Present: normal inspection, trachea midline. Absent: meningismus - Chest Chest inspection: Present: normal inspection, symmetric chest wall rise - Respiratory Respiratory exam: Present: normal lung sounds bilaterally. Absent: respiratory distress - Cardiovascular Cardiovascular exam: Present: regular rate, normal rhythm, normal heart sounds - Abdominal Exam Abdominal exam: Present: soft, distention, tenderness. Absent: guarding, rebound, rigidity Abdominal tenderness: Present: diffuse - Extremities Exam Extremities exam: Present: normal inspection - Neurological Exam Neurological exam: Present: alert, oriented X3, CN II-XII intact. Absent: motor sensory deficit - Psychiatric Psychiatric exam: Present: normal affect, normal mood - Skin Skin exam: Present: warm, dry
[2019-03-03 16:28] LABS: Albumin Level 1.9 gm/dL (3.4-5.0); Albumin/Globulin Ratio 0.3 (1.1-1.8); Anion Gap 15.9 mEq/L (5-15); Bilirubin,Total 4.9 mg/dL (0.2-1.0); Calcium 9.5 mg/dL (8.5-10.1); Potassium 3.9 mmoL/L (3.5-5.1); Total Protein,Serum 7.9 gm/dL (6.4-8.2)
--- NOTE | 2019-03-03 21:02 | History & Physical Report ---
*Admission Date: 03/03/19 *Chief complaint: weakness *History of present illness: this wf with known cancer presents with progressive weakness - pt was seen in the ed -he patient was brought down from the infusion department. She has metastatic breast cancer. Family states that Dr. Davila, her oncologist, wanted her brought down. She was there to get an injection of Faslodex, but this was held due to abnormal labs. She also has not had chemotherapy in 1 month because of low blood counts. Family states she has elevated bilirubin and alkaline phosphatase today and low blood sugar. Family states that she has generalized weakness for the past few days along with increased confusion. Poor appetite, but drinking fluids and urinating well. No vomiting or diarrhea. No fever. She also fell last night and hurt her right knee, but is able to walk. pt was admitted with ivf at this time - [facility] History I have reviewed the patient's past medical history: Yes Medical History: Reports:: Asthma, Cancer, Diabetes Mellitus Type 2, Gastroesoph ageal Reflux Disease(GERD), Hyperlipidemia, Hypertension, Myocardial Infarction, Seizures Denies:: Diabetes Mellitus Type 1, Internal Pacemaker, MRSA *Have you ever received a pneumonia vaccine?: No *Have you received a flu vaccine this season?: No Other Medical History: Reports: Anemia, Chemotherapy, Other. Denies: Blood Transfusion Reaction Laterality Cases: Left: Lumpectomy, Bilateral: Breast Biopsy, Carpal Tunnel Release Other Surgeries: Yes: Angioplasty, Cancer Surgery, Cardiac Catheterization. No: Pacemaker Amputation: No Fractures: No - *Social History Smoking Status: Former smoker Tobacco Type: cigarettes # Packs/Day (cigarettes): 1 #Yrs smoked (if former smoker): 40 Smoking End Date: 2015 Alcohol Intake: never Alcohol Intake Frequency:: other Substance Use Type: denies use *Occupational Status:: employed Housing: house Household Members: spouse *Travel in the last 8 weeks: None - Psychiatric History Expresses thoughts of harming self/others: None Suicide Plan Description: No Plan Family Hx:: Cancer Review of Systems - Review of Systems Review of systems:: pertinent systems reviewed and negative unless documented below - Constitutional Reports weakness - Eyes Denies change in vision - ENT Denies sore throat - *Cardiovascular Reports shortness of breath, Denies chest pain at rest - *Respiratory Reports cough - *Gastrointestinal Denies abdominal pain, Denies vomiting - *Genitourinary Denies blood in urine - *Musculoskeletal Reports joint pain - Integumentary/Breasts Denies rash - *Neurologic Reports confusion, Denies seizure-like activity - Psychiatric Denies anxiety Meds Home Medications Medication Instructions Recorded Confirmed Type calcium 600 mg-D3 800 unit-mag11 1 tab PO DAILY 04/11/18 03/03/19 History 50 pm-udcq-neawhz-jimmy-s.borat tablet Cholecalciferol (Vitamin D3) 1,000 unit PO DAILY 05/20/18 03/03/19 History [Vitamin D3 1,000 Unit Cap] Morphine Sulfate [MS Contin 15mg 15 mg PO Q12 05/29/18 03/03/19 History EXTENDED RELEASE tablet] metoprolol tartrate 25 mg tablet 25 mg PO BID #180 tab 09/08/18 03/03/19 Rx promethazine 25 mg tablet 25 mg PO TID PRN #90 tab 12/18/18 03/03/19 Rx amlodipine 5 mg tablet 5 mg PO DAILY #90 tab 01/09/19 03/03/19 Rx omeprazole 20 mg capsule,delayed 20 mg PO DAILY #90 cap 01/09/19 03/03/19 Rx release glipizide 10 mg tablet 10 mg PO BID #60 tab 02/02/19 03/03/19 Rx levetiracetam 750 mg tablet 1,500 mg PO Q12H #360 tab 02/02/19 03/03/19 Rx magnesium oxide 400 mg capsule 400 mg PO DAILY #90 cap 02/02/19 03/03/19 Rx metformin 1,000 mg tablet 1,000 mg PO BID 90 Days #180 tab 02/02/19 03/03/19 Rx Ertugliflozin Pidolate [Steglatro] 5 mg PO DAILY 03/03/19 03/03/19 History Potassium Chloride [Klor-con 20 20 meq PO DAILY 03/03/19 03/03/19 History mEq tablet] Allergies Allergy/AdvReac Type Severity Reaction Status Date / Time lisinopril [LISINOPRIL] Allergy Severe Anaphylaxis Verified 02/26/19 09:16 naproxen [From ALEVE] Allergy Mild Rash Verified 02/26/19 09:16 Exam Vital signs and Labs for Last 24 Hours: Temp Pulse Resp BP Pulse Ox 97.0 F L 111 H 18 124/74 93 L 03/03/19 20:00 03/03/19 20:00 03/03/19 20:00 03/03/19 20:00 03/03/19 20:00 Laboratory Results - last 24 hr 03/03/19 16:00: Sodium 131 L, Potassium 3.9, Chloride 95 L, Carbon Dioxide 24, Anion Gap 15.9 H, BUN 10, Creatinine 0.83, Estimated Creat Clear 109, Estimated GFR 70, Est GFR ( Amer) 85, Glucose 71 L, Calcium 9.5, Total Bilirubin 4.9 H, AST 179 H, ALT 39, Alkaline Phosphatase 469 H, Total Protein 7.9, Albumin 1.9 L, Globulin 6.0 H, Albumin/Globulin Ratio 0.3 L 03/03/19 16:00: Lactate 4.3 H 03/03/19 16:00: Ammonia 80 H 03/03/19 16:00: WBC 8.8, RBC 2.71 L, Hgb 8.7 L, Hct 27.0 L, MCV 99.7 H, MCH 32.3 H, MCHC 32.4, RDW 20.2 H, Plt Count 64 L, MPV 7.7, Neut % (Auto) 74.4, Lymph % (Auto) 18.0, [place] % (Auto) 5.4, Eos % (Auto) 1.9, Baso % (Auto) 0.3, Neut # (Auto) 6.5, Lymph # (Auto) 1.6, [place] # (Auto) 0.5, Eos # (Auto) 0.2, Baso # (Auto) 0.0 03/03/19 20:17: Lactate 4.8 H 03/03/19 20:42: POC Glucose 130 H I & O for Last 24 hours: Intake & Output 03/01/19 03/02/19 03/03/19 03/04/19 11:59 11:59 11:59 11:59 Weight 209 lb - Constitutional no acute distress, obese, chronically ill appearing - *Routine HEENT Exam Head: Present: normocephalic Eye: Present: EOMI, PERRL, conjunctival icterus ENT: Present: mucous membranes dry - *Routine Neck Exam Absent: JVD - *Routine Respiratory Exam Present: decreased breath sounds, rhonchi, distant breath sounds. Absent: respiratory distress - *Routine Cardiovascular Exam Present: RRR, murmur - *Routine Abdominal Exam Present: soft, distended, organomegaly - *Routine Extremities Exam Absent: calf tenderness - *Routine Skin Exam Present: intact - *Routine Neurological Exam Present: alert, CN II-XII intact, moving all extremities - Routine Psychiatric Exam Present: normal affect Assessment and Plan (1) Elevated liver enzymes Current visit: Yes Status: Acute Category: Medical Code(s): R74.8 - Abnormal levels of other serum enzymes (2) Hepatic encephalopathy Current visit: Yes Status: Acute Category: Medical Code(s): K72.90 - Hepatic failure, unspecified without coma (3) Hypoglycemia Current visit: Yes Status: Acute Category: Medical Code(s): E16.2 - Hypoglycemia, unspecified (4) Metastatic breast cancer Current visit: Yes Status: Acute Category: Medical Code(s): C50.919 - Malignant neoplasm of unspecified site of unspecified female breast (5) Anemia Current visit: No Status: Acute Qualifiers: Anemia type: unspecified type Qualified Code(s): D64.9 - Anemia, unspecified Category: Medical Code(s): D64.9 - Anemia, unspecified (6) Thrombocytopenia Current visit: Yes Status: Acute Category: Medical Code(s): D69.6 - Thrombocytopenia, unspecified (7) Hyponatremia Current visit: Yes Status: Acute Category: Medical Code(s): E87.1 - Hypo- osmolality and hyponatremia (8) Pleural effusion Current visit: Yes Status: Acute Category: Medical Code(s): J90 - Pleural effusion, not elsewhere classified (9) Cirrhosis Current visit: Yes Status: Acute Qualifiers: Hepatic cirrhosis type: unspecified hepatic cirrhosis Ascites presence: with ascites Qualified Code(s): K74.60 - Unspecified cirrhosis of liver; R18.8 - Other ascites Category: Medical Code(s): K74.60 - Unspecified cirrhosis of liver (10) Splenomegaly Current visit: Yes Status: Acute Category: Medical Code(s): R16.1 - Splenomegaly, not elsewhere classified (11) Ascites Current visit: Yes Status: Acute Qualifiers: Ascites type: malignant Qualified Code(s): R18.0 - Malignant ascites Category: Medical Code(s): R18.8 - Other ascites (12) Bony metastasis Current visit: Yes Status: Acute Category: Medical Code(s): C79.51 - Secondary malignant neoplasm of bone
--- NOTE | 2019-03-04 07:21 | Pharmacy Consult Notes ---
[facility] Pharmacy VTE Monitoring - Patient Demographics Admission date: 03/03/19 Report Date: 03/04/19 Time: 07:21 Allergies/Adverse Reactions: Patient Allergies lisinopril [LISINOPRIL] Allergy (Severe, Verified 02/26/19 09:16) Anaphylaxis naproxen [From ALEVE] Allergy (Mild, Verified 02/26/19 09:16) Rash Height: 1.68 m Weight: 94.801 kg Patient Problems: Current Active Problems (Updated 03/04/19 @ 06:49 by Juan Marlow MD) Metastatic breast cancer (Acute) Hepatic encephalopathy (Acute) Elevated liver enzymes (Acute) Hypoglycemia (Acute) Thrombocytopenia (Acute) Hyponatremia (Acute) Pleural effusion (Acute) Cirrhosis (Acute) Splenomegaly (Acute) Ascites (Acute) Bony metastasis (Acute) - VTE Risk Labs: VTE Related Lab Results Hgb 8.7 g/dL (12.2-16.2) L 03/03/19 16:00 Hct 27.0 % (37.0-47.0) L 03/03/19 16:00 Plt Count 64 K/mm3 (142-424) L 03/03/19 16:00 BUN 10 mg/dL (7-18) 03/03/19 16:00 Creatinine 0.83 mg/dL (0.55-1.02) 03/03/19 16:00 Estimated Creat Clear 109 mL/min (50-200) 03/03/19 16:00 Was VTE Risk Assessment Performed: Yes VTE Score: 6 VTE Risk Level: Moderate Risk Clinical Trial Participant: No - Prophylaxis VTE Prophylaxis Ordered?: Yes Types of VTE Prophylaxis: TEDS Knee High Location of Applied Device: Bilateral Lower Extremeties
[2019-03-04 07:30] LABS: Albumin Level 1.7 gm/dL (3.4-5.0); Albumin/Globulin Ratio 0.3 (1.1-1.8); Anion Gap 11.5 mEq/L (5-15); Bilirubin,Total 4.7 mg/dL (0.2-1.0); Calcium 9.3 mg/dL (8.5-10.1); Globulin 5.5 gm/dl (1.3-3.2); Potassium 3.5 mmoL/L (3.5-5.1); Total Protein,Serum 7.2 gm/dL (6.4-8.2)
--- NOTE | 2019-03-04 08:17 | Progress Note ---
Internal Medicine - PN: Carlos Alberto *Date: 03/04/19 *Time: 08:14 Interval history: pt reports feeling better today Exam Vital signs and Labs for Last 24 Hours: Temp Pulse Resp BP Pulse Ox 98.4 F 96 H 20 104/60 L 94 L 03/04/19 04:00 03/04/19 04:00 03/04/19 04:00 03/04/19 04:00 03/04/19 04:00 Laboratory Results - last 24 hr 03/03/19 16:00: Sodium 131 L, Potassium 3.9, Chloride 95 L, Carbon Dioxide 24, Anion Gap 15.9 H, BUN 10, Creatinine 0.83, Estimated Creat Clear 109, Estimated GFR 70, Est GFR ( Amer) 85, Glucose 71 L, Calcium 9.5, Total Bilirubin 4.9 H, AST 179 H, ALT 39, Alkaline Phosphatase 469 H, Total Protein 7.9, Albumin 1.9 L, Globulin 6.0 H, Albumin/Globulin Ratio 0.3 L 03/03/19 16:00: Lactate 4.3 H 03/03/19 16:00: Ammonia 80 H 03/03/19 16:00: WBC 8.8, RBC 2.71 L, Hgb 8.7 L, Hct 27.0 L, MCV 99.7 H, MCH 32.3 H, MCHC 32.4, RDW 20.2 H, Plt Count 64 L, MPV 7.7, Neut % (Auto) 74.4, Lymph % (Auto) 18.0, [place] % (Auto) 5.4, Eos % (Auto) 1.9, Baso % (Auto) 0.3, Neut # (Auto) 6.5, Lymph # (Auto) 1.6, [place] # (Auto) 0.5, Eos # (Auto) 0.2, Baso # (Auto) 0.0 03/03/19 20:17: Lactate 4.8 H 03/03/19 20:42: POC Glucose 130 H 03/04/19 05:58: POC Glucose 60 L 03/04/19 07:01: Sodium 135 L, Potassium 3.5, Chloride 100, Carbon Dioxide 27, Anion Gap 11.5, BUN 8, Creatinine 0.76, Estimated Creat Clear 119, Estimated GFR 78, Est GFR ( Amer) 94, Glucose 87 D, Calcium 9.3, Total Bilirubin 4.7 H , AST 154 H, ALT 35, Alkaline Phosphatase 414 H, Total Protein 7.2, Albumin 1.7 L D, Globulin 5.5 H, Albumin/Globulin Ratio 0.3 L 03/04/19 07:01: Ammonia 43 I & O for Last 24 hours: Intake & Output 03/01/19 03/02/19 03/03/19 03/04/19 11:59 11:59 11:59 11:59 Intake Total 1358 / 1358 Output Total 200 / 200 Balance 1158 / 1158 Weight 209 lb - Constitutional no acute distress - *Routine HEENT Exam Head: Present: normocephalic Eye: Present: EOMI, PERRL, conjunctival icterus ENT: Present: mucous membranes dry - *Routine Neck Exam Absent: JVD - *Routine Respiratory Exam Present: decreased breath sounds - *Routine Cardiovascular Exam Present: RRR, murmur - *Routine Abdominal Exam Present: soft - *Routine Extremities Exam Present: full ROM - *Routine Skin Exam Present: intact - *Routine Neurological Exam Present: alert, CN II-XII intact - Routine Psychiatric Exam Present: normal affect Assessment and Plan (1) Elevated liver enzymes Current visit: Yes Status: Acute Category: Medical Code(s): R74.8 - Abnormal levels of other serum enzymes (2) Hepatic encephalopathy Current visit: Yes Status: Acute Category: Medical Code(s): K72.90 - Hepatic failure, unspecified without coma (3) Hypoglycemia Current visit: Yes Status: Acute Category: Medical Code(s): E16.2 - Hypoglycemia, unspecified (4) Metastatic breast cancer Current visit: Yes Status: Acute Category: Medical Code(s): C50.919 - Malignant neoplasm of unspecified site of unspecified female breast (5) Anemia Current visit: No Status: Acute Qualifiers: Anemia type: unspecified type Qualified Code(s): D64.9 - Anemia, unspecified Category: Medical Code(s): D64.9 - Anemia, unspecified (6) Thrombocytopenia Current visit: Yes Status: Acute Category: Medical Code(s): D69.6 - Thrombocytopenia, unspecified (7) Hyponatremia Current visit: Yes Status: Acute Category: Medical Code(s): E87.1 - Hypo-osmolality and hyponatremia (8) Pleural effusion Current visit: Yes Status: Acute Category: Medical Code(s): J90 - Pleural effusion, not elsewhere classified (9) Cirrhosis Current visit: Yes Status: Acute Qualifiers: Hepatic cirrhosis type: unspecified hepatic cirrhosis Ascites presence: with ascites Qualified Code(s): K74.60 - Unspecified cirrhosis of liver; R18.8 - Other ascites Category: Medical Code(s): K74.60 - Unspecified cirrhosis of liver (10) Splenomegaly Current visit: Yes Status: Acute Category: Medical Code(s): R16.1 - Splenomegaly, not elsewhere classified (11) Ascites Current visit: Yes Status: Acute Qualifiers: Ascites type: malignant Qualified Code(s): R18.0 - Malignant ascites Category: Medical Code(s): R18.8 - Other ascites (12) Bony metastasis Current visit: Yes Status: Acute Category: Medical Code(s): C79.51 - Secondary malignant neoplasm of bone
[2019-03-04 08:43] LABS: Basophils % 0.3 % (0.1-2.0); Eosinophils # 0.2 K/mm3 (0.0-0.4); Hematocrit 25.6 % (37.0-47.0); Hemoglobin 8.1 g/dL (12.2-16.2); Lymphocytes # 1.2 K/mm3 (0.7-4.5); Lymphocytes % 17.5 % (10-50); Mean Corpuscular HGB Conc 31.7 g/dL (31.8-35.4); Mean Corpuscular Hemoglobin 32.4 pg (27.0-31.2); Mean Corpuscular Volume 102.3 fl (81-99); Mean Platelet Volume 7.9 fl (7.4-10.4); Monocytes # 0.4 K/mm3 (0.1-1.0); Monocytes % 6.4 % (1.7-9.3); Neutrophils # 4.9 K/mm3 (1.8-7.8); Neutrophils % 72.8 % (37.0-80.0); Red Cell Distribution Width 20.3 % (11.5-17.5); White Blood Count 6.7 K/mm3 (4.8-10.8)
[2019-03-04 08:45] LABS: Platelet Count 49 K/mm3 (142-424)
[2019-03-04 15:13] LABS: Microscopic, Urine URINE MICROSCOPIC (MICROSCOPIC)
[2019-03-04 15:27] LABS: Appearance,Urine CLEAR (Clear); Blood, Urine Negative (Negative); Color,Urine YELLOW (Yellow); Glucose,Urine (UA) 3+ (Negative); Ketones,Urine TRACE (Negative); Leukocyte Esterase,Urine Negative (Negative); Protein,Urine Negative (Negative); Specific Gravity, Urine 1.025 (1.005-1.030)
[2019-03-04 15:47] LABS: Bilirubin,Urine 2+ (Negative)
[2019-03-04 15:58] LABS: Bacteria,Urine 1+ /lpf; WBC,Urine Occasional #/hpf (0-3); Yeast,Urine 1+ /lpf
--- NOTE | 2019-03-05 08:44 | Progress Note ---
Internal Medicine - PN: Subj *Date: 03/05/19 *Time: 08:41 Interval history: pt states she feels slightly better today Exam Vital signs and Labs for Last 24 Hours: Temp Pulse Resp BP Pulse Ox 98.4 F 108 H 20 154/82 H 90 L 03/05/19 08:00 03/05/19 08:00 03/05/19 08:00 03/05/19 08:00 03/05/19 08:00 Laboratory Results - last 24 hr 03/04/19 07:01: WBC 6.7, RBC 2.50 L, Hgb 8.1 L, Hct 25.6 L, MCV 102.3 H, MCH 32.4 H, MCHC 31.7 L, RDW 20.3 H, Plt Count 49 L*, MPV 7.9, Neut % (Auto) 72.8, Lymph % (Auto) 17.5, [place] % (Auto) 6.4, Eos % (Auto) 3.0, Baso % (Auto) 0.3, Neut # (Auto) 4.9, Lymph # (Auto) 1.2, [place] # (Auto) 0.4, Eos # (Auto) 0.2, Baso # (Auto) 0.0 03/04/19 11:28: POC Glucose 112 H 03/04/19 14:25: Urine Color Yellow, Urine Appearance Clear, Urine pH 5.0, Ur Specific [place] 1.025, Urine Protein Negative, Urine Glucose (UA) 3+, Urine Ketones Trace, Urine Blood Negative, Urine Nitrate Positive, Urine Bilirubin 2+ A, Urine Urobilinogen 4.0, Ur Leukocyte Esterase Negative, Urine WBC Occasional, Urine Bacteria 1+, Urine Yeast 1+ 03/04/19 16:08: POC Glucose 189 H 03/04/19 20:20: POC Glucose 137 H I & O for Last 24 hours: Intake & Output 03/02/19 03/03/19 03/04/19 03/05/19 11:59 11:59 11:59 11:59 Intake Total 1358 / 1358 2644 / 2644 Output Total 440 / 440 300 / 300 Balance 918 / 918 2344 / 2344 Weight 209 lb 215 lb 2 oz - Constitutional no acute distress - *Routine HEENT Exam Head: Present: normocephalic Eye: Present: PERRL ENT: Present: mucous membranes moist - *Routine Neck Exam Present: supple. Absent: lymphadenopathy - *Routine Respiratory Exam Present: CTA bilaterally - *Routine Cardiovascular Exam Present: RRR - *Routine Abdominal Exam Present: soft, normoactive bowel sounds. Absent: tenderness - *Routine Extremities Exam Absent: cyanosis, clubbing, edema - *Routine Skin Exam Present: warm, jaundice. Absent: rash - *Routine Neurological Exam Present: alert, oriented X3 - Routine Psychiatric Exam Present: normal affect Assessment and Plan (1) Elevated liver enzymes Current visit: Yes Status: Acute Category: Medical Code(s): R74.8 - Abnormal levels of other serum enzymes (2) Hepatic encephalopathy Current visit: Yes Status: Acute Category: Medical Code(s): K72.90 - Hepatic failure, unspecified without coma (3) Hypoglycemia Current visit: Yes Status: Acute Category: Medical Code(s): E16.2 - Hypoglycemia, unspecified (4) Metastatic breast cancer Current visit: Yes Status: Acute Category: Medical Code(s): C50.919 - Malignant neoplasm of unspecified site of unspecified female breast (5) Anemia Current visit: No Status: Acute Qualifiers: Anemia type: unspecified type Qualified Code(s): D64.9 - Anemia, unspecified Category: Medical Code(s): D64.9 - Anemia, unspecified (6) Thrombocytopenia Current visit: Yes Status: Acute Category: Medical Code(s): D69.6 - Thrombocytopenia, unspecified (7) Hyponatremia Current visit: Yes Status: Acute Category: Medical Code(s): E87.1 - Hypo- osmolality and hyponatremia (8) Pleural effusion Current visit: Yes Status: Acute Category: Medical Code(s): J90 - Pleural effusion, not elsewhere classified (9) Cirrhosis Current visit: Yes Status: Acute Qualifiers: Hepatic cirrhosis type: unspecified hepatic cirrhosis Ascites presence: with ascites Qualified Code(s): K74.60 - Unspecified cirrhosis of liver; R18.8 - Other ascites Category: Medical Code(s): K74.60 - Unspecified cirrhosis of liver (10) Splenomegaly Current visit: Yes Status: Acute Category: Medical Code(s): R16.1 - Splenomegaly, not elsewhere classified (11) Ascites Current visit: Yes Status: Acute Qualifiers: Ascites type: malignant Qualified Code(s): R18.0 - Malignant ascites Category: Medical Code(s): R18.8 - Other ascites (12) Bony metastasis Current visit: Yes Status: Acute Category: Medical Code(s): C79.51 - Secondary malignant neoplasm of bone - Assessment and plan all Dx Assessment and Plan for all problems:: Rounded with Dr. Marlow all orders per Ele Davila today for consult
--- NOTE | 2019-03-05 15:47 | Consult Report ---
*Admission Date: 03/03/19 *Chief complaint: jaundice and confusion *History of present illness: pt has h/o met breast cancer to liver, bone. she presented to ed on saturday with confusion, jaundice. bili was 4.9. ct scan demonstrated progressive disease and new disease in spleen. pt has been receiving lactulose. still confused but awake. [facility] History Medical History: Reports:: Asthma, Cancer, Diabetes Mellitus Type 2, Gastroesophageal Reflux Disease(GERD), Hyperlipidemia, Hypertension, Myocardial Infarction, Seizures Denies:: Diabetes Mellitus Type 1, Internal Pacemaker, MRSA *Have you ever received a pneumonia vaccine?: No *Have you received a flu vaccine this season?: No Other Medical History: Reports: Anemia, Chemotherapy, Other. Denies: Blood Transfusion Reaction Laterality Cases: Left: Lumpectomy, Bilateral: Breast Biopsy, Carpal Tunnel Release Other Surgeries: Yes: Angioplasty, Cancer Surgery, Cardiac Catheterization. No: Pacemaker Amputation: No Fractures: No - *Social History Smoking Status: Former smoker Tobacco Type: cigarettes # Packs/Day (cigarettes): 1 #Yrs smoked (if former smoker): 40 Smoking End Date: 2015 Alcohol Intake: never Alcohol Intake Frequency:: other Substance Use Type: denies use *Occupational Status:: employed Housing: house Household Members: spouse *Travel in the last 8 weeks: None - Psychiatric History Expresses thoughts of harming self/others: None Suicide Plan Description: No Plan Family Hx:: Cancer Review of Systems - *Neurologic Reports confusion, Reports weakness, Denies seizure-like activity Meds Home Medications Medication Instructions Recorded Confirmed Type calcium 600 mg-D3 800 unit-mag11 1 tab PO DAILY 04/11/18 03/03/19 History 50 qn-hwxi-hekwgt-jimmy-s.borat tablet Cholecalciferol (Vitamin D3) 1,000 unit PO DAILY 05/20/18 03/03/19 History [Vitamin D3 1,000 Unit Cap] Morphine Sulfate [MS Contin 15mg 15 mg PO Q12H 05/29/18 03/04/19 History EXTENDED RELEASE tablet] metoprolol tartrate 25 mg tablet 25 mg PO BID #180 tab 09/08/18 03/03/19 Rx promethazine 25 mg tablet 25 mg PO TID PRN #90 tab 12/18/18 03/03/19 Rx amlodipine 5 mg tablet 5 mg PO DAILY #90 tab 01/09/19 03/03/19 Rx omeprazole 20 mg capsule,delayed 20 mg PO DAILY #90 cap 01/09/19 03/03/19 Rx release glipizide 10 mg tablet 10 mg PO BID #60 tab 02/02/19 03/03/19 Rx levetiracetam 750 mg tablet 1,500 mg PO Q12H #360 tab 02/02/19 03/03/19 Rx magnesium oxide 400 mg capsule 400 mg PO DAILY #90 cap 02/02/19 03/03/19 Rx metformin 1,000 mg tablet 1,000 mg PO BID 90 Days #180 tab 02/02/19 03/03/19 Rx Potassium Chloride [Klor-con 20 20 meq PO DAILY 03/03/19 03/03/19 History mEq tablet] Ertugliflozin Pidolate [Steglatro] 5 mg PO DAILY 03/04/19 03/04/19 History Allergies Allergy/AdvReac Type Severity Reaction Status Date / Time lisinopril [LISINOPRIL] Allergy Severe Anaphylaxis Verified 02/26/19 09:16 naproxen [From ALEVE] Allergy Mild Rash Verified 02/26/19 09:16 Exam Vital signs and Labs for Last 24 Hours: Temp Pulse Resp BP Pulse Ox 98.0 F 106 H 18 148/82 H 91 L 03/05/19 15:01 03/05/19 15:01 03/05/19 15:01 03/05/19 15:01 03/05/19 15:01 Laboratory Results - last 24 hr 03/04/19 14:25: Urine Color Yellow, Urine Appearance Clear, Urine pH 5.0, Ur Specific [place] 1.025, Urine Protein Negative, Urine Glucose (UA) 3+, Urine Ketones Trace, Urine Blood Negative, Urine Nitrate Positive, Urine Bilirubin 2+ A, Urine Urobilinogen 4.0, Ur Leukocyte Esterase Negative, Urine WBC Occasional, Urine Bacteria 1+, Urine Yeast 1+ 03/04/19 16:08: POC Glucose 189 H 03/04/19 20:20: POC Glucose 137 H 03/05/19 05:58: POC Glucose 107 03/05/19 10:56: POC Glucose 135 H I & O for Last 24 hours: Intake & Output 03/03/19 03/04/19 03/05/19 03/06/19 11:59 11:59 11:59 11:59 Intake Total 1358 / 1358 2644 / 2644 412 / 412 Output Total 440 / 440 300 / 300 Balance 918 / 918 2344 / 2344 412 / 412 Weight 209 lb 215 lb 2 oz Internal Medicine - CN: Reslt - Labs CBC & Chem 7: 03/04/19 07:01 03/04/19 07:01 Labs: Urine 03/04/19 Range/Units 14:25 Urine Color Yellow (Yellow) Urine Appearance Clear (Clear) Urine pH 5.0 (5.0-8.5) Ur Specific [place] 1.025 (1.005-1.030) Urine Protein Negative (Negative) Urine Glucose (UA) 3+ (Negative) Assessment and Plan (1) Elevated liver enzymes Current visit: Yes Status: Acute Category: Medical Code(s): R74.8 - Abnormal levels of other serum enzymes (2) Hepatic encephalopathy Current visit: Yes Status: Acute Category: Medical Code(s): K72.90 - Hepatic failure, unspecified without coma (3) Hypoglycemia Current visit: Yes Status: Acute Category: Medical Code(s): E16.2 - Hypoglycemia, unspecified (4) Metastatic breast cancer Current visit: Yes Status: Acute Category: Medical Code(s): C50.919 - Malignant neoplasm of unspecified site of unspecified female breast (5) Anemia Current visit: No Status: Acute Qualifiers: Anemia type: unspecified type Qualified Code(s): D64.9 - Anemia, unspecified Category: Medical Code(s): D64.9 - Anemia, unspecified (6) Thrombocytopenia Current visit: Yes Status: Acute Category: Medical Code(s): D69.6 - Thrombocytopenia, unspecified (7) Hyponatremia Current visit: Yes Status: Acute Category: Medical Code(s): E87.1 - Hypo- osmolality and hyponatremia (8) Pleural effusion Current visit: Yes Status: Acute Category: Medical Code(s): J90 - Pleural effusion, not elsewhere classified (9) Cirrhosis Current visit: Yes Status: Acute Qualifiers: Hepatic cirrhosis type: unspecified hepatic cirrhosis Ascites presence: with ascites Qualified Code(s): K74.60 - Unspecified cirrhosis of liver; R18.8 - Other ascites Category: Medical Code(s): K74.60 - Unspecified cirrhosis of liver (10) Splenomegaly Current visit: Yes Status: Acute Category: Medical Code(s): R16.1 - Splenomegaly, not elsewhere classified (11) Ascites Current visit: Yes Status: Acute Qualifiers: Ascites type: malignant Qualified Code(s): R18.0 - Malignant ascites Category: Medical Code(s): R18.8 - Other ascites (12) Bony metastasis Current visit: Yes Status: Acute Category: Medical Code(s): C79.51 - Secondary malignant neoplasm of bone - Assessment and plan all Dx Assessment and Plan for all problems:: met breast cancer to liver, spleen, and bone- progressive disease. long discussion iwth pt and family. she is not a candidate for additional chemotherapy. recommend hospice. they are agreeable to meet with them for f urther discussion. Diana Jordan MD
--- NOTE | 2019-03-06 08:26 | Progress Note ---
Internal Medicine - PN: Subj *Date: 03/06/19 *Time: 08:23 Interval history: Today patient laying in bed agrees with hospice Exam Vital signs and Labs for Last 24 Hours: Temp Pulse Resp BP Pulse Ox 98.7 F 102 H 18 121/64 94 L 03/06/19 04:00 03/06/19 04:00 03/06/19 04:00 03/06/19 04:00 03/06/19 04:00 Laboratory Results - last 24 hr 03/05/19 05:58: POC Glucose 107 03/05/19 10:56: POC Glucose 135 H 03/05/19 15:50: POC Glucose 136 H 03/05/19 21:12: POC Glucose 119 H I & O for Last 24 hours: Intake & Output 03/03/19 03/04/19 03/05/19 03/06/19 11:59 11:59 11:59 11:59 Intake Total 1358 / 1358 2644 / 2644 547 / 547 Output Total 440 / 440 300 / 300 150 / 150 Balance 918 / 918 2344 / 2344 397 / 397 Weight 209 lb 215 lb 2 oz 221 lb 8 oz - Constitutional no acute distress - *Routine HEENT Exam Head: Present: normocephalic Eye: Present: PERRL, conjunctival icterus ENT: Present: mucous membranes moist - *Routine Neck Exam Present: supple. Absent: lymphadenopathy - *Routine Respiratory Exam Present: CTA bilaterally - *Routine Cardiovascular Exam Present: RRR - *Routine Abdominal Exam Present: soft, normoactive bowel sounds, distended. Absent: tenderness - *Routine Extremities Exam Absent: cyanosis, clubbing, edema - *Routine Skin Exam Present: warm, jaundice. Absent: rash - *Routine Neurological Exam Present: alert, oriented X3 - Routine Psychiatric Exam Present: normal affect Assessment and Plan (1) Elevated liver enzymes Current visit: Yes Status: Acute Category: Medical Code(s): R74.8 - Abnormal levels of other serum enzymes (2) Hepatic encephalopathy Current visit: Yes Status: Acute Category: Medical Code(s): K72.90 - Hepatic failure, unspecified without coma (3) Hypoglycemia Current visit: Yes Status: Acute Category: Medical Code(s): E16.2 - Hypoglycemia, unspecified (4) Metastatic breast cancer Current visit: Yes Status: Acute Category: Medical Code(s): C50.919 - Malignant neoplasm of unspecified site of unspecified female breast (5) Anemia Current visit: No Status: Acute Qualifiers: Anemia type: unspecified type Qualified Code(s): D64.9 - Anemia, unspecified Category: Medical Code(s): D64.9 - Anemia, unspecified (6) Thrombocytopenia Current visit: Yes Status: Acute Category: Medical Code(s): D69.6 - Thrombocytopenia, unspecified (7) Hyponatremia Current visit: Yes Status: Acute Category: Medical Code(s): E87.1 - Hypo- osmolality and hyponatremia (8) Pleural effusion Current visit: Yes Status: Acute Category: Medical Code(s): J90 - Pleural effusion, not elsewhere classified (9) Cirrhosis Current visit: Yes Status: Acute Qualifiers: Hepatic cirrhosis type: unspecified hepatic cirrhosis Ascites presence: with ascites Qualified Code(s): K74.60 - Unspecified cirrhosis of liver; R18.8 - Other ascites Category: Medical Code(s): K74.60 - Unspecified cirrhosis of liver (10) Splenomegaly Current visit: Yes Status: Acute Category: Medical Code(s): R16.1 - Splenomegaly, not elsewhere classified (11) Ascites Current visit: Yes Status: Acute Qualifiers: Ascites type: malignant Qualified Code(s): R18.0 - Malignant ascites Category: Medical Code(s): R18.8 - Other ascites (12) Bony metastasis Current visit: Yes Status: Acute Category: Medical Code(s): C79.51 - Secondary malignant neoplasm of bone - Assessment and plan all Dx Assessment and Plan for all problems:: Rounded with Dr. Marlow all orders per Ele Check with patient and family to see if they are interested in inpatient hospice care
[2019-03-06 17:27] LABS: Microscopic, Urine URINE MICROSCOPIC (MICROSCOPIC)
[2019-03-06 17:30] LABS: Appearance,Urine CLEAR (Clear); Blood, Urine Negative (Negative); Glucose,Urine (UA) Negative (Negative); Ketones,Urine TRACE (Negative); Leukocyte Esterase,Urine Negative (Negative); PH,Urine 5.5 (5.0-8.5); Protein,Urine TRACE (Negative); Specific Gravity, Urine >= 1.030 (1.005-1.030)
[2019-03-06 18:08] LABS: Bilirubin,Urine 3+ (Negative); Color,Urine Orange (Yellow)
[2019-03-06 18:11] LABS: Bacteria,Urine 1+ /lpf; WBC,Urine Occasional #/hpf (0-3)
--- NOTE | 2019-03-07 09:09 | Progress Note ---
Internal Medicine - PN: Subj *Date: 03/07/19 *Time: 09:07 Interval history: doing ok - no sig pain and awake - discussed with family Exam Vital signs and Labs for Last 24 Hours: Temp Pulse Resp BP Pulse Ox 98.3 F 124 H 22 124/79 95 03/07/19 08:00 03/07/19 08:48 03/07/19 08:00 03/07/19 08:00 03/07/19 08:48 Laboratory Results - last 24 hr 03/06/19 06:06: POC Glucose 135 H 03/06/19 15:00: Urine Color [place], Urine Appearance Clear, Urine pH 5.5, Ur Specific [place] >= 1.030, Urine Protein Trace, Urine Glucose (UA) Negative, Urine Ketones Trace, Urine Blood Negative, Urine Nitrate Positive, Urine Bilirubin 3+ A, Urine Urobilinogen 1.0, Ur Leukocyte Esterase Negative, Urine WBC Occasional, Urine Bacteria 1+ I & O for Last 24 hours: Intake & Output 03/04/19 03/05/19 03/06/19 03/07/19 11:59 11:59 11:59 11:59 Intake Total 1358 / 1358 2644 / 2644 787 / 787 290 / 290 Output Total 440 / 440 300 / 300 150 / 150 400 / 400 Balance 918 / 918 2344 / 2344 637 / 637 -110 / -110 Weight 209 lb 215 lb 2 oz 221 lb 8 oz 222 lb 5 oz - Constitutional no acute distress, somnolent - *Routine HEENT Exam Head: Present: normocephalic Eye: Present: EOMI, PERRL ENT: Present: mucous membranes dry - *Routine Neck Exam Absent: JVD - *Routine Respiratory Exam Present: decreased breath sounds - *Routine Cardiovascular Exam Present: RRR - *Routine Abdominal Exam Present: soft - *Routine Extremities Exam Absent: calf tenderness - *Routine Skin Exam Present: intact - *Routine Neurological Exam Present: CN II-XII intact - Routine Psychiatric Exam Present: unable to assess Assessment and Plan (1) Elevated liver enzymes Current visit: Yes Status: Acute Category: Medical Code(s): R74.8 - Abnormal levels of other serum enzymes (2) Hepatic encephalopathy Current visit: Yes Status: Acute Category: Medical Code(s): K72.90 - Hepatic failure, unspecified without coma (3) Hypoglycemia Current visit: Yes Status: Acute Category: Medical Code(s): E16.2 - Hypoglycemia, unspecified (4) Metastatic breast cancer Current visit: Yes Status: Acute Category: Medical Code(s): C50.919 - Malignant neoplasm of unspecified site of unspecified female breast (5) Anemia Current visit: No Status: Acute Qualifiers: Anemia type: unspecified type Qualified Code(s): D64.9 - Anemia, unspecified Category: Medical Code(s): D64.9 - Anemia, unspecified (6) Thrombocytopenia Current visit: Yes Status: Acute Category: Medical Code(s): D69.6 - Thrombocytopenia, unspecified (7) Hyponatremia Current visit: Yes Status: Acute Category: Medical Code(s): E87.1 - Hypo- osmolality and hyponatremia (8) Pleural effusion Current visit: Yes Status: Acute Category: Medical Code(s): J90 - Pleural effusion, not elsewhere classified (9) Cirrhosis Current visit: Yes Status: Acute Qualifiers: Hepatic cirrhosis type: unspecified hepatic cirrhosis Ascites presence: with ascites Qualified Code(s): K74.60 - Unspecified cirrhosis of liver; R18.8 - Other ascites Category: Medical Code(s): K74.60 - Unspecified cirrhosis of liver (10) Splenomegaly Current visit: Yes Status: Acute Category: Medical Code(s): R16.1 - Splenomegaly, not elsewhere classified (11) Ascites Current visit: Yes Status: Acute Qualifiers: Ascites type: malignant Qualified Code(s): R18.0 - Malignant ascites Category: Medical Code(s): R18.8 - Other ascites (12) Bony metastasis Current visit: Yes Status: Acute Category: Medical Code(s): C79.51 - Secondary malignant neoplasm of bone
--- NOTE | 2019-03-08 09:18 | Progress Note ---
Internal Medicine - PN: Subj *Date: 03/08/19 *Time: 09:17 Interval history: more lethargic today - no pain family has no specific requests Exam Vital signs and Labs for Last 24 Hours: Temp Pulse Resp BP Pulse Ox 98.8 F 128 H 19 137/79 94 L 03/07/19 19:39 03/07/19 19:39 03/08/19 07:57 03/07/19 19:39 03/08/19 07:57 I & O for Last 24 hours: Intake & Output 03/05/19 03/06/19 03/07/19 03/08/19 11:59 11:59 11:59 11:59 Intake Total 2644 / 2644 787 / 787 290 / 290 240 / 240 Output Total 300 / 300 150 / 150 400 / 400 550 / 550 Balance 2344 / 2344 637 / 637 -110 / -110 -310 / -310 Weight 215 lb 2 oz 221 lb 8 oz 222 lb 5 oz 221 lb 8 oz - Constitutional chronically ill appearing, somnolent - *Routine HEENT Exam Head: Present: normocephalic Eye: Present: EOMI, PERRL ENT: Present: mucous membranes dry - *Routine Neck Exam Absent: JVD - *Routine Respiratory Exam Present: decreased breath sounds - *Routine Cardiovascular Exam Present: RRR, murmur - *Routine Abdominal Exam Present: soft - *Routine Extremities Exam Absent: calf tenderness - *Routine Skin Exam Present: intact - *Routine Neurological Exam Present: altered mental status - Routine Psychiatric Exam Present: unable to assess Assessment and Plan (1) Elevated liver enzymes Current visit: Yes Status: Acute Category: Medical Code(s): R74.8 - Abnormal levels of other serum enzymes (2) Hepatic encephalopathy Current visit: Yes Status: Acute Category: Medical Code(s): K72.90 - Hepatic failure, unspecified without coma (3) Hypoglycemia Current visit: Yes Status: Acute Category: Medical Code(s): E16.2 - Hypoglycemia, unspecified (4) Metastatic breast cancer Current visit: Yes Status: Acute Category: Medical Code(s): C50.919 - Malignant neoplasm of unspecified site of unspecified female breast (5) Anemia Current visit: No Status: Acute Qualifiers: Anemia type: unspecified type Qualified Code(s): D64.9 - Anemia, unspecified Category: Medical Code(s): D64.9 - Anemia, unspecified (6) Thrombocytopenia Current visit: Yes Status: Acute Category: Medical Code(s): D69.6 - Thrombocytopenia, unspecified (7) Hyponatremia Current visit: Yes Status: Acute Category: Medical Code(s): E87.1 - Hypo- osmolality and hyponatremia (8) Pleural effusion Current visit: Yes Status: Acute Category: Medical Code(s): J90 - Pleural effusion, not elsewhere classified (9) Cirrhosis Current visit: Yes Status: Acute Qualifiers: Hepatic cirrhosis type: unspecified hepatic cirrhosis Ascites presence: with ascites Qualified Code(s): K74.60 - Unspecified cirrhosis of liver; R18.8 - Other ascites Category: Medical Code(s): K74.60 - Unspecified cirrhosis of liver (10) Splenomegaly Current visit: Yes Status: Acute Category: Medical Code(s): R16.1 - Splenomegaly, not elsewhere classified (11) Ascites Current visit: Yes Status: Acute Qualifiers: Ascites type: malignant Qualified Code(s): R18.0 - Malignant ascites Category: Medical Code(s): R18.8 - Other ascites (12) Bony metastasis Current visit: Yes Status: Acute Category: Medical Code(s): C79.51 - Secondary malignant neoplasm of bone
--- NOTE | 2019-03-09 13:32 | Progress Note ---
Internal Medicine - PN: Subj *Date: 03/09/19 *Time: 13:30 Interval history: more icteric and dec awake - family ok Exam Vital signs and Labs for Last 24 Hours: Temp Pulse Resp BP Pulse Ox 100.5 F H 141 H 22 135/88 94 L 03/09/19 08:00 03/09/19 08:00 03/09/19 08:00 03/09/19 08:00 03/09/19 08:00 Laboratory Results - last 24 hr 03/08/19 17:13: POC Glucose 117 H I & O for Last 24 hours: Intake & Output 03/07/19 03/08/19 03/09/19 03/10/19 11:59 11:59 11:59 11:59 Intake Total 290 / 290 240 / 240 190 / 190 Output Total 400 / 400 550 / 550 450 / 450 Balance -110 / -110 -310 / -310 -260 / -260 Weight 222 lb 5 oz 221 lb 8 oz 222 lb 2 oz - Constitutional obtunded - *Routine HEENT Exam Head: Present: normocephalic Eye: Present: conjunctival icterus ENT: Present: mucous membranes dry - *Routine Neck Exam Absent: JVD - *Routine Respiratory Exam Present: decreased breath sounds - *Routine Cardiovascular Exam Present: RRR - *Routine Abdominal Exam Present: soft - *Routine Extremities Exam Absent: calf tenderness - *Routine Skin Exam Present: intact - *Routine Neurological Exam Present: altered mental status - Routine Psychiatric Exam Present: unable to assess Assessment and Plan (1) Elevated liver enzymes Current visit: Yes Status: Acute Category: Medical Code(s): R74.8 - Abnormal levels of other serum enzymes (2) Hepatic encephalopathy Current visit: Yes Status: Acute Category: Medical Code(s): K72.90 - Hepatic failure, unspecified without coma (3) Hypoglycemia Current visit: Yes Status: Acute Category: Medical Code(s): E16.2 - Hypoglycemia, unspecified (4) Metastatic breast cancer Current visit: Yes Status: Acute Category: Medical Code(s): C50.919 - Malignant neoplasm of unspecified site of unspecified female breast (5) Anemia Current visit: No Status: Acute Qualifiers: Anemia type: unspecified type Qualified Code(s): D64.9 - Anemia, unspecified Category: Medical Code(s): D64.9 - Anemia, unspecified (6) Thrombocytopenia Current visit: Yes Status: Acute Category: Medical Code(s): D69.6 - Thrombocytopenia, unspecified (7) Hyponatremia Current visit: Yes Status: Acute Category: Medical Code(s): E87.1 - Hypo- osmolality and hyponatremia (8) Pleural effusion Current visit: Yes Status: Acute Category: Medical Code(s): J90 - Pleural effusion, not elsewhere classified (9) Cirrhosis Current visit: Yes Status: Acute Qualifiers: Hepatic cirrhosis type: unspecified hepatic cirrhosis Ascites presence: with ascites Qualified Code(s): K74.60 - Unspecified cirrhosis of liver; R18.8 - Other ascites Category: Medical Code(s): K74.60 - Unspecified cirrhosis of liver (10) Splenomegaly Current visit: Yes Status: Acute Category: Medical Code(s): R16.1 - Splenomegaly, not elsewhere classified (11) Ascites Current visit: Yes Status: Acute Qualifiers: Ascites type: malignant Qualified Code(s): R18.0 - Malignant ascites Category: Medical Code(s): R18.8 - Other ascites (12) Bony metastasis Current visit: Yes Status: Acute Category: Medical Code(s): C79.51 - Secondary malignant neoplasm of bone
--- NOTE | 2019-03-10 08:30 | Progress Note ---
Internal Medicine - PN: Subj *Date: 03/10/19 *Time: 08:27 Interval history: Family at bedside, patient resting, Sanchez draining at bedside Patient is hospice for comfort care only Exam Vital signs and Labs for Last 24 Hours: Temp Pulse Resp BP Pulse Ox 99.8 F H 143 H 24 139/95 H 91 L 03/09/19 20:30 03/09/19 20:30 03/09/19 20:30 03/09/19 20:00 03/09/19 20:30 I & O for Last 24 hours: Intake & Output 03/07/19 03/08/19 03/09/19 03/10/19 11:59 11:59 11:59 11:59 Intake Total 290 / 290 240 / 240 190 / 190 140 / 140 Output Total 400 / 400 550 / 550 450 / 450 975 / 975 Balance -110 / -110 -310 / -310 -260 / -260 -835 / -835 Weight 222 lb 5 oz 221 lb 8 oz 222 lb 2 oz 217 lb 4 oz - Constitutional no acute distress, obese, chronically ill appearing - *Routine HEENT Exam Head: Present: normocephalic Eye: Present: PERRL, conjunctival icterus ENT: Present: mucous membranes moist - *Routine Neck Exam Present: supple. Absent: lymphadenopathy - *Routine Respiratory Exam Present: CTA bilaterally - *Routine Cardiovascular Exam Present: RRR - *Routine Abdominal Exam Present: soft, normoactive bowel sounds. Absent: tenderness - *Routine Exam Comments: Sanchez draining at bedside - *Routine Extremities Exam Absent: cyanosis, clubbing, edema - *Routine Skin Exam Present: warm, jaundice. Absent: rash - *Routine Neurological Exam Patient lethargic - Routine Psychiatric Exam Present: unable to assess Assessment and Plan (1) Elevated liver enzymes Current visit: Yes Status: Acute Category: Medical Code(s): R74.8 - Abnormal levels of other serum enzymes (2) Hepatic encephalopathy Current visit: Yes Status: Acute Category: Medical Code(s): K72.90 - Hepatic failure, unspecified without coma (3) Hypoglycemia Current visit: Yes Status: Acute Category: Medical Code(s): E16.2 - Hypoglycemia, unspecified (4) Metastatic breast cancer Current visit: Yes Status: Acute Category: Medical Code(s): C50.919 - Malignant neoplasm of unspecified site of unspecified female breast (5) Anemia Current visit: No Status: Acute Qualifiers: Anemia type: unspecified type Qualified Code(s): D64.9 - Anemia, unspecified Category: Medical Code(s): D64.9 - Anemia, unspecified (6) Thrombocytopenia Current visit: Yes Status: Acute Category: Medical Code(s): D69.6 - Thrombocytopenia, unspecified (7) Hyponatremia Current visit: Yes Status: Acute Category: Medical Code(s): E87.1 - Hypo- osmolality and hyponatremia (8) Pleural effusion Current visit: Yes Status: Acute Category: Medical Code(s): J90 - Pleural effusion, not elsewhere classified (9) Cirrhosis Current visit: Yes Status: Acute Qualifiers: Hepatic cirrhosis type: unspecified hepatic cirrhosis Ascites presence: with ascites Qualified Code(s): K74.60 - Unspecified cirrhosis of liver; R18.8 - Other ascites Category: Medical Code(s): K74.60 - Unspecified cirrhosis of liver (10) Splenomegaly Current visit: Yes Status: Acute Category: Medical Code(s): R16.1 - Splenomegaly, not elsewhere classified (11) Ascites Current visit: Yes Status: Acute Qualifiers: Ascites type: malignant Qualified Code(s): R18.0 - Malignant ascites Category: Medical Code(s): R18.8 - Other ascites (12) Bony metastasis Current visit: Yes Status: Acute Category: Medical Code(s): C79.51 - Secondary malignant neoplasm of bone - Assessment and plan all Dx Assessment and Plan for all problems:: Rounded with Dr. Marlow all orders per Dr. Marlow Hospice to see patient today
--- NOTE | 2019-03-10 19:19 | Death Note ---
Pronouncement Note - Date and Time of Date of : 03/10/19 Time of : 19:05 - PCOD Preliminary cause of : Acute respiratory failure - Additional Data Confirmation of : no pulse, no respirations, no heart sounds, pupils fixed and dilated Family: at bedside Attending physician: Juan Marlow MD Was code activated?: No Autopsy requested?: No
--- NOTE | 2019-03-10 20:41 | Discharge Summary ---
General - General Admission date:: 03/03/19 Discharge date: 03/10/19 HPI HPI: this wf with known cancer presents with progressive weakness - pt was seen in the ed -he patient was brought down from the infusion department. She has metastatic breast cancer. Family states that Dr. Davila, her oncologist, wanted her brought down. She was there to get an injection of Faslodex, but this was held due to abnormal labs. She also has not had chemotherapy in 1 month because of low blood counts. Family states she has elevated bilirubin and alkaline phosphatase today and low blood sugar. Family states that she has generalized weakness for the past few days along with increased confusion. Poor appetite, but drinking fluids and urinating well. No vomiting or diarrhea. No fever. She also fell last night and hurt her right knee, but is able to walk. pt was admitted with ivf at this time - Hospital Course Hospital Course: pt with ivf and pain meds and was seen by oncology who recommended hospice and famuily agreed - has h/o met breast cancer to liver, bone. she presented to ed on saturday with confusion, jaundice. bili was 4.9. ct scan demonstrated progressive disease and new disease in spleen. pt has been receiving lactulose. still confused but awake. Objective Vital signs: Temp Pulse Resp BP Pulse Ox 103.2 F H 151 H 24 114/73 91 L 03/10/19 08:00 03/10/19 08:00 03/10/19 08:00 03/10/19 08:00 03/10/19 08:00 DS: Diagnosis - Discharge Diagnosis (1) Metastatic breast cancer Status: Acute Discharge Plan - Patient Discharge Instructions Patient Instructions: Breast Cancer in Women, Hepatic Encephalopathy - Follow up Plan Disposition: Home Medications: Home Medications Medication Instructions Recorded Confirmed Type calcium 600 mg-D3 800 unit-mag11 1 tab PO DAILY 04/11/18 03/03/19 History 50 ws-noqy-boeewm-jimmy-s.borat tablet Cholecalciferol (Vitamin D3) 1,000 unit PO DAILY 05/20/18 03/03/19 History [Vitamin D3 1,000 Unit Cap] Morphine Sulfate [MS Contin 15mg 15 mg PO Q12H 05/29/18 03/04/19 History EXTENDED RELEASE tablet] metoprolol tartrate 25 mg tablet 25 mg PO BID #180 tab 09/08/18 03/03/19 Rx promethazine 25 mg tablet 25 mg PO TID PRN #90 tab 12/18/18 03/03/19 Rx amlodipine 5 mg tablet 5 mg PO DAILY #90 tab 01/09/19 03/03/19 Rx omeprazole 20 mg capsule,delayed 20 mg PO DAILY #90 cap 01/09/19 03/03/19 Rx release glipizide 10 mg tablet 10 mg PO BID #60 tab 02/02/19 03/03/19 Rx levetiracetam 750 mg tablet 1,500 mg PO Q12H #360 tab 02/02/19 03/03/19 Rx magnesium 400 mg (as magnesium 400 mg PO DAILY #90 cap 02/02/19 03/03/19 Rx oxide) capsule metformin 1,000 mg tablet 1,000 mg PO BID 90 Days #180 tab 02/02/19 03/03/19 Rx Potassium Chloride [Klor-con 20 20 meq PO DAILY 03/03/19 03/03/19 History mEq tablet] Ertugliflozin Pidolate [Steglatro] 5 mg PO DAILY 03/04/19 03/04/19 History Prescriptions/Medication Reconciliation: No Action calcium 600 mg-D3 800 unit-mag11 50 zk-hrul-aqhkck-jimmy-s.borat tablet 1 tab PO DAILY metoprolol tartrate 25 mg tablet 25 mg PO BID #180 tab amlodipine 5 mg tablet 5 mg PO DAILY #90 tab omeprazole 20 mg capsule,delayed release 20 mg PO DAILY #90 cap levetiracetam 750 mg tablet 1,500 mg PO Q12H #360 tab metformin 1,000 mg tablet 1,000 mg PO BID 90 Days #180 tab promethazine 25 mg tablet 25 mg PO TID PRN #90 tab PRN Reason: Nausea And Vomiting glipizide 10 mg tablet 10 mg PO BID #60 tab magnesium 400 mg (as magnesium oxide) capsule 400 mg PO DAILY #90 cap Potassium Chloride [Klor-con 20 mEq tablet] 20 meq PO DAILY Cholecalciferol (Vitamin D3) [Vitamin D3 1,000 Unit Cap] 1,000 unit PO DAILY Morphine Sulfate [MS Contin 15mg EXTENDED RELEASE tablet] 15 mg PO Q12H Ertugliflozin Pidolate [Steglatro] 5 mg PO DAILY
--- NOTE | 2019-03-10 20:47 | Death Note ---
Discharge Sum: Prov - Provider Primary care physician: Juan Marlow MD Consults: 03/05/19 09:19 Oncology Consult [Consult to Hematology] [CONS] Routine Consulting Provider: Diana Davila Comment: ana plathero,cancer 03/05/19 14:45 Care Management Consult [Consult to Case Management] [CONS] Routine Comment: Hospice consult Discharge Sum: Summary - Date and Time Date of admission: 03/03/19 19:52 Date of : 03/10/19 Time of : 19:10 - Additional Data Confirmation of as documented by pronouncing clinician: no pulse Family: at bedside Attending/PCP notified?: Yes Attending physician: Juan Marlow MD Was code activated?: No Autopsy requested?: No final cigar and box examiner notified?: Yes Organ bank notified?: Yes Advance directives: Yes Hospice patient?: Yes
== END 2019-03-10 22:38 | disposition expired | DRG 441 ==
LOC: ER 15:47 → 2ND 15:47 → OBSVTOIN 19:52 → 2ND 19:53
PROVIDERS: ADMIT Emergency Medicine; ATTEND Emergency Medicine
CPT/HCPCS: 36415; 71260; 74177; 80053; 81001; 82140; 82962; 83605; 85025; 94761; 96365; 96375; 99284; J1953; J2405; Q9967